=== PATIENT | female | born 1960 | race Caucasian/White ===

== ENCOUNTER → 2018-04-16 15:25 | Outpatient (CLI) | payer BC, SELFPAY ==
[2018-04-23 16:05] LABS: HPV Reflexed? NOT INDICATED
== END ==
PROVIDERS: Family Provider Family Medicine; PCP Family Medicine; Visit Provider Obstetrics & Gynecology
DX: Z12.4 Encounter for screening for malignant neoplasm of cervix (principal)
CPT/HCPCS: 88175; G0145

== ENCOUNTER 2019-03-25 00:15 | Emergency (ER) | payer BC, SELFPAY ==
[2019-01-25 10:09] VITALS: BMI 32.3
[2019-03-25 00:16] VITALS: BP 180/110; PULSE 78; RESP 18; TEMP 37.2; O2SAT 98; BMI 32.5
--- NOTE | 2019-03-25 00:35 | ED.DCSUM_ITS ---
History of Present Illness Chief Complaint: Anxiety Informant: Patient Onset: Days Current Severity: Moderate Maximum Severity: Moderate Narrative: Patient presents with anxiety and inability to sleep. Her father yesterday afternoon. She states that she had a tumultuous relationship with him. She states he had a horrible . She was able to sleep for a few hours but woke up replaying the patient struggling during his and now is having difficulty dealing with this. Patient does have a history of anxiety and states several years ago should be on Ativan for just a short time period. She does feel that she likely counseling to help her get through this. - Past Medical History (1) Hypertension Status: Chronic (2) Hypothyroid Status: Chronic Past Medical History - Allergies and Home Meds Allergies/Adverse Reactions: Allergies No Known Allergies Allergy (Verified 03/25/19 00:16) Primary Care Physician: Kana Hernandez MD [Primary Care Provider] - Prior records reviewed: Yes Lives: Spouse/ Significant Other Smoking Status: Never smoker Review of Systems General: Denies: Chills, Fever Eyes: Denies: Visual changes - bilaterally ENT: Denies: Bilateral ear pain Cardiovascular: Reports: Palpitations. Denies: Chest pain Respiratory: Denies: Dyspnea, Cough Gastrointestinal: Denies: Abdominal pain, Nausea, Vomiting Genitourinary: Denies: Dysuria Musculoskeletal: Denies: Extremity Pain Neurological: Denies: Headache Psych: Reports: Anxiety Allergy: Denies: Uticaria Physical Exam Vital Signs/Narrative: Vital Signs Temp Pulse Resp BP Pulse Ox 03/25/19 00:16 98.9 F 78 18 180/110 H 98 Inital Vital Signs reviewed: Yes General: Well nourished, Well developed Head: Normocephalic ENT: Moist mucous membranes Neck: Supple Cardiovascular: Regular rate, Regular rhythm Respiratory: No distress, CTA bilaterally Abdomen: Soft, Nontender, Hypoactive bowel sounds Skin: Normal color Neurological: Alert, Oriented x3 Psychological: Tearful Diagnostic/Tx/Re-eval - Medical Decision Making Patient was initially given 1 mg of p.o. Ativan. On repeat evaluation she appeared slightly more calm, but states that she still felt very anxious and did not feel she is amenable to sleep. She is given 25 mg of p.o. Vistaril. At this time patient is feeling improved. She will be given prescriptions for both Ativan and Vistaril that she can use at home. I will get her information for behavioral health for counseling follow-up. Repeat blood pressure at time of discharge is 153/87. ED Disposition - Plan for ED Patient: Disposition: Home or Assisted Living Diagnosis: Anxiety Instructions: Anxiety Reaction Prescriptions: Lorazepam [Ativan] 1 mg PO TID PRN #10 tablet PRN Reason: Anxiety hydrOXYzine pamoate capsule [Vistaril] 25 mg PO TID PRN PRN #30 capsule PRN Reason: Anxiety Referrals: Kana Hernandez MD [Primary Care Provider] - Behavioral,Health [facility] [GROUP OF PHYSICIANS] - As soon as possible
[2019-03-25] MEDS: LORazepam 1 MG Tablet PO (00:39)
[2019-03-25] MEDS: hydrOXYzine PAM 25 MG Capsule PO (01:20)
[2019-03-25 01:54] VITALS: BP 153/87
== END 2019-03-25 01:59 | disposition home or self-care (01) ==
PROVIDERS: Emergency Provider Emergency Medicine; Family Provider Family Medicine; PCP Family Medicine
DX: F41.9 Anxiety disorder, unspecified (principal); E03.9 Hypothyroidism, unspecified; I10 Essential (primary) hypertension
CPT/HCPCS: 99283

== ENCOUNTER → 2019-04-13 07:00 | Outpatient (CLI) | payer BC, SELFPAY ==
[2019-01-25 10:09] VITALS: BMI 32.3
[2019-03-25 00:16] VITALS: BMI 32.5
--- NOTE | 2019-04-13 06:56 | BI_ITS ---
MAMMOGRAPHY - BILATERAL SCREENING REASON FOR EXAM: Female, 58 years old. Routine annual screening examination. PERTINENT HISTORY: Sister with breast cancer. Remote right stereotactic breast biopsy. TECHNIQUE: Digital bilateral breast jonel (3D mammographic acquisition) in the CC and MLO projections. 2-D mediolateral oblique (MLO) and craniocaudad (CC) views of both breasts were obtained. CAD: Full Field Digital Mammography with Computer Added Detection was performed. COMPARISON: Comparison is made with prior examination dated December 02, 2016. FINDINGS: Breast Composition: There are scattered areas of fibroglandular density. There are no dominant masses or suspicious calcifications. Stable small benign-appearing bilateral axillary lymph nodes. No other significant abnormalities are identified. There has been no significant change since the prior study. BI/SCREEN MAMM (CAD) W/JONEL BILAT IMPRESSION: Stable bilateral screening mammogram. Yearly follow-up mammogram recommended. (A) ASSESSMENT CATEGORY: BIRADS Category 2: Benign. A letter regarding these results will be sent to the patient by the facility within 30 days. Approximately 10% of breast cancers are not detected by mammography. A normal mammogram should not delay biopsy of a clinically suspicious abnormality. [id number] Electronically Signed: Moises Moncada, at 8:53 EST , Service support ,
== END ==
PROVIDERS: Family Provider Family Medicine; PCP Family Medicine; Referring Provider Family Medicine; Visit Provider Family Medicine
DX: Z12.31 Encounter for screening mammogram for malignant neoplasm of breast (principal); Z80.3 Family history of malignant neoplasm of breast
CPT/HCPCS: 77063; 77067

== ENCOUNTER → 2019-04-19 18:20 | Outpatient (CLI) | payer BC, SELFPAY ==
[2019-04-19 09:10] VITALS: BMI 32.5
[2019-04-23 13:33] LABS: HPV APTIMA, High Risk Negative (Negative)
== END ==
PROVIDERS: Family Provider Family Medicine; PCP Family Medicine; Referring Provider Nurse Practitioner Women's Health; Visit Provider Nurse Practitioner Women's Health
DX: Z12.4 Encounter for screening for malignant neoplasm of cervix (principal)
CPT/HCPCS: 87624; 88175; G0145

== ENCOUNTER → 2020-01-05 07:12 | Outpatient (CLI) | payer BC, SELFPAY ==
[2019-04-19 09:10] VITALS: BMI 32.5
[2020-01-05 08:53] LABS: Microalbumin,Random Urine 9.1 mg/L (NO RANGE EST.)
[2020-01-05 09:07] LABS: Free T3 2.3 pg/mL (2.18-3.98); T4 Free Direct 1.37 ng/dL (0.76-1.46); Thyroid Stim Hormone (TSH) 2.37 uIU/mL (0.358-3.74)
[2020-01-06 05:38] LABS: Thyroid Peroxidase AB 67 IU/mL (0-34)
== END ==
PROVIDERS: PCP Family Medicine; Referring Provider Family Medicine; Visit Provider Family Medicine
DX: E03.9 Hypothyroidism, unspecified (principal); I10 Essential (primary) hypertension
CPT/HCPCS: 36415; 82043; 82570; 84439; 84443; 84481; 86376

== ENCOUNTER 2020-02-17 09:00 | Outpatient (RCR) | payer BC, SELFPAY ==
[2019-04-19 09:10] VITALS: BMI 32.5
--- NOTE | 2020-01-20 11:44 | HP.PTEVAL_ITS ---
Patient's Visit Information BARBARA STEPHENS is a 59 year old F referred to Physical Therapy by Dr. Kana Hernandez MD with a diagnosis of POSTURAL IMBALANCE. Date of Evaluation: 01/20/20 Physical Therapist: Ron Molina, PT, Cert MDT, OCS - Visit Plan Frequency: 2x /Week Duration: 4 Weeks Plan: PT INTERVENTIONS FLEXION LUMBAR ,DLS ABD/BACK,POSTURAL EX'S,MECKENZIE CERVICAL ,ICTX ,MODALTIES NEEDED - Subjective This 59 y/o female presents to physical therapy with posture imbalance. Patient has had lumbar for about year. Patient has progessively worse right > left with standing symmtrical . Patient pain is intermittant desribed as ache . Seen DR Hernandez recommended . Patient also seen DR Munoz didnt help.Patient has had back by DR Munoz.Aggraveting factors siting, driving, extended bending,lifting. Alleviating moving out of postion.Coughing/sneezing-.Bowel/bladder -Denies parathesia/tingling.Patient pain affects QOL and job demands/housework tasks. Patient pain affects sleeping.X-RAYS showed anrteriorlothesis 11mm. SOCAIL: . 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 PALPTION:tender L-S. NEURO: denies parathesia/tingling,reflexes C5-6-7 2/3,L3-4,L4-5,L5-S1 2/3. SYMMTRIES: alighn. MMT: QUADS/HAMS 4/5,HIP FLEXION 4-/5 ,ANKLE 5/5. MMT: BUE 4/5. LUMBAR ROM: flexion WFL,extension mod loss pain,side glids min loss. CERVICAL ROM: flexion WFL,extesnion WFL,rotation /lateral flexion mod loss. MUSCLULAR ENDURANCE : ABDOMINALS POOR -UNABLE - Special Tests C/S Radiculapathy - Left Upper limb tension test: Negative C/S Radiculapathy - Right Upper limb tension test: Negative C/S Radiculapathy - Left Spurlings: Positive C/S Radiculapathy - Right Spurlings: Positive C/S Radiculapathy - Left Cervical distraction: Negative C/S Radiculapathy - Right Cervical distraction: Negative Sharp Sonia: Negative Vertebral Artery Test: Negative Alar Ligament Test: Negative Cervical Sitting: Protrusion - Mechanical Response: No effect Cervical Sitting: Protrusion - Symptoms During Testing: No effect Cervical Sitting: Protrusion - Symptoms After Testing: No effect Cervical Sitting: Retraction - Mechanical Response: No effect Cervical Sitting: Retraction - Symptoms During Testing: Produces Cervical Sitting: Retraction - Symptoms After Testing: No effect L/S Slump test left side: Negative L/S Slump test right side: Negative L/S Left Straight Leg Raise: Negative L/S Right Straight Leg Raise: Negative Lumbar Standing: Flexion - Mechanical Response: No effect Lumbar Standing: Flexion - Symptoms During Testing: No effect Lumbar Standing: Flexion - Symptoms After Testing: No effect Lumbar Standing: Extension - Mechanical Response: No effect Lumbar Standing: Extension - Symptoms During Testing: Increases Lumbar Standing: Extension - Symptoms After Testing: Worse Lumbar Lying: Flexion - Mechanical Response: No effect Lumbar Lying: Flexion - Symptoms During Testing: No effect Lumbar Lying: Flexion - Symptoms After Testing: No effect Lumbar Lying: Extension - Mechanical Response: No effect Lumbar Lying: Extension - Symptoms During Testing: Abolishes Lumbar Lying: Extension - Symptoms After Testing: Worse - Goals Goal 1:: Patient to be I with HEP. Goal Time Frame: 4-6 Weeks Goal 2:: Improve posture/body mechanics Goal Time Frame: 4-6 Weeks Goal 3:: Decrease lumbar pain with function by 50% or > to improve function and QOL. Goal Time Frame: 4-6 Weeks Goal 4:: Patient improve lumbar ROM for function of recovery Goal Time Frame: 4-6 Weeks Goal 5:: Patient to improve back owestry score by 5 points or > to improve QOL. Goal Time Frame: 4-6 Weeks Goal 6:: Patient to decrease symptoms in cervical to improve function. Goal Time Frame: 4-6 Weeks - Rehabilitation Potential Physical Therapy Diagnosis: Patient has lumbar pain worse with standing and and extended postion worse with extension does have 11 mm anteriorlothesis ,poor abdnominal strength and postural deficits thus benifit From skilled PT Rehabilitation Potential: Good - Anticipated Interventions Patient/Client Instruction: Educate patient on: Condition, Plan of Care For the Purpose of:: To decrease pain, To increase ROM, To improve muscle performance and motor function, To improve ability to perform ADL's, To increase tolerance to activity/condition/position, To improve ability of physical actions for home/community/work/leisure, To improve health of tissue, To decrease soft tissue restriction, To increase flexibility/ROM, To improve health and function Therapeutic Exercise to Include: Strength training, Body mechanics, Postural training, Flexibilty training, Active ROM, Dynamic Lumbar Stabilization For the Purpose of:: To decrease pain, To increase ROM, To improve muscle performance and motor function, To improve ability to perform ADL's, To increase tolerance to activity/condition/position, To improve health of tissue, To decrease soft tissue restriction, To increase flexibility/ROM, To reduce risk of recurrence, To improve ability to perform tasks related to life management TENS: Yes IF ES: Yes Cryotherapy (ice pack, ice massage): Yes Thermo therapy (hot pack): Yes Ultrasound (thermal/non thermal): Yes Intermittent cervical traction: Yes For the Purpose of:: To decrease pain, To increase ROM, To improve nutrient delivery to tissue, To increase oxygenation perfusion, To improve health of tissue, To decrease soft tissue restriction Thank you for the opportunity to evaluate your patient. For Medicare and Medicare HMO plans, please review the plan of care and approve it. It will need to be FAXED BACK to us at [phone] for Medicare purposes. For Medicare only, by signing this I certify the plan of care. Please let me know if there are questions or concerns regarding this plan of care. Physician Signature: Date:
--- NOTE | 2020-04-05 08:39 | HP.PTDCSUM ---
It has been my pleasure to treat BARBARA STEPHENS referred by Dr. Kana Hernandez MD, with the diagnosis of POSTURAL IMBALANCE for a total of 9 visit(s). Discharge Date: Please see the following information for a summary of their discharge status. Subjective: Doing okay.. Pain is intermittant ,. Symptoms better with general Bilateral Back Pain Intensity (Out of 10): 3 % Improvement: 50 Objective/Function: POSTURE: mild foward. GAIT: reciprocal pattern. NEURO: denies parathesia/tingling. PALAPTION: unremarkable. LUMBAR ROM: flexion min loss,extension loss pain Goal 1:: Patient to be I with HEP. Goal Progress: Goal Met Goal 2:: Improve posture/body mechanics Goal Progress: Goal Met Goal 3:: Decrease lumbar pain with function by 50% or > to improve function and QOL. Goal Progress: Progressing Goal 4:: Patient improve lumbar ROM for function of recovery Goal Progress: Progressing Goal 5:: Patient to improve back owestry score by 5 points or > to improve QOL. Goal Progress: Progressing Goal 6:: Patient to decrease symptoms in cervical to improve function. Goal Progress: Progressing Plan: RTD If there are questions or concerns regarding this patient's physical therapy, please feel free to call me at [phone]. Thank you for the referral of this patient. Sincerely, Ron Molina PT, Cert MDT, OCS
== END 2020-02-17 19:00 | disposition home or self-care (01) ==
LOC: PT 09:00
PROVIDERS: PCP Family Medicine; Referring Provider Family Medicine; Visit Provider Family Medicine
DX: R29.3 Abnormal posture (principal)
CPT/HCPCS: 97012; 97014; 97032; 97035; 97110; 97162; G0283

== ENCOUNTER → 2020-09-22 14:00 | Outpatient (CLI) | payer BC, SELFPAY ==
[2020-05-12 11:36] VITALS: BMI 35.4
--- NOTE | 2020-09-22 14:02 | EKG12_ITS ---
Test Reason : Blood Pressure : / mmHG Vent. Rate : 079 BPM Atrial Rate : 079 BPM P-R Int : 148 ms QRS Dur : 092 ms QT Int : 380 ms P-R-T Axes : 050 020 051 degrees QTc Int : 435 ms Sinus rhythm with frequent Premature ventricular complexes Otherwise normal ECG Confirmed by KOSTAS TELLO, JET ([id number]), food editor FRANCY RAINEY ([id number]) on 09/26/2020 1:40:33 PM Referred By: Jet Melchor Confirmed By:JET MELCHOR MD
[2020-09-22 15:27] LABS: Anion Gap 5 (5-15); BUN 17 mg/dL (7-18); BUN/Creat Ratio 22.8 RATIO (10-20); Calcium,Total 10.2 mg/dL (8.5-10.1); Chloride 105 mmol/L (98-107); Creatinine, Serum 0.75 mg/dL (0.55-1.02); EST Glomerular Filtration Rate 84 mL/min (>60); Est Glom Filt Rate - Afr Amer 102 mL/min (>60); Glucose 91 mg/dL (74-106); Magnesium 2.3 mg/dL (1.6-2.6); Potassium 4.1 mmol/L (3.5-5.1); Sodium Level 139 mmol/L (136-145)
== END ==
PROVIDERS: PCP Family Medicine; Referring Provider Internal Medicine Cardiovascular Disease; Visit Provider Internal Medicine Cardiovascular Disease
DX: I10 Essential (primary) hypertension (principal); R00.2 Palpitations
CPT/HCPCS: 36415; 80048; 83735; 93005; 93225; 93226

== ENCOUNTER → 2020-09-26 07:46 | Outpatient (CLI) | payer BC, SELFPAY ==
[2020-05-12 11:36] VITALS: BMI 35.4
--- NOTE | 2020-09-26 07:48 | ECHOD_ITS ---
Reason For Study: Arrhythmia Procedure This was a 2D Doppler, Color Flow transthoracic echocardiogram. Exam performed in department. Left Ventricle Normal LV size. Left ventricular systolic function is normal. The estimated ejection fraction is 65 %. Normal diastology for age. No regional wall motion abnormalities noted. Right Ventricle Normal RV size. Normal systolic function. Atria Normal left atrium. Normal right atrium. Mitral Valve Normal mitral valve. Tricuspid Valve Normal tricuspid valve. Mild tricuspid valve insufficiency. Pulmonary artery systolic pressure is 25 mmHg. Aortic Valve Normal aortic valve. Trisinus/trileaflet aortic valve. Pulmonic Valve Normal pulmonic valve. Great Vessels Normal aortic root. The pulmonary artery is normal size. Normal inferior vena cava. Pericardium/Pleural No pericardial effusion. MMode/2D Measurements & Calculations LVIDd: 4.3 cm IVSd: 1.3 cm Ao root diam: 3.7 cm LVIDs: 2.4 cm LVPWd: 1.1 cm LA dimension: 3.6 cm FS: 43.5 % LAV(MOD-bp): 66.8 ml LA A4 area: 22.4 cm2 RA A4 area: 17.4 cm2 LAV(MOD-bp) Indexed: 31.5 ml/m2 LAV(MOD-sp2): 55.7 ml LAV(MOD-sp4): 72.3 ml Time Measurements MV dec time: 0.26 sec Doppler Measurements & Calculations MV E max leroy: 73.2 cm/sec Lat Peak E' Leroy: 6.5 cm/sec Med Peak E' Leroy: 10.4 cm/sec MV A max leroy: 81.5 cm/sec E/E' lat: 11.3 E/E' med: 7.0 MV E/A: 0.90 MV V2 max: 94.5 cm/sec MV P1/2t max leroy: 76.4 cm/sec Ao V2 max: 147.0 cm/sec MV max P.6 mmHg MV P1/2t: 79.0 msec Ao max P.7 mmHg MV V2 mean: 53.7 cm/sec MV dec slope: 283.2 cm/sec2 MV mean P.4 mmHg MVA(P1/2t): 2.8 cm2 MV V2 VTI: 23.3 cm LV V1 max: 115.5 cm/sec PA V2 max: 123.3 cm/sec TR max leroy: 232.5 cm/sec LV V1 max P.4 mmHg TR max P.6 mmHg ECHO/Echo Complete Interpretation Summary Normal LV size. Left ventricular systolic function is normal. The estimated ejection fraction is 65 %. Pulmonary artery systolic pressure is 25 mmHg. Ordering Physician: Jet Melchor Referring Physician: Kana Hernandez Performed By: Adolfo Sarmiento RCS
== END ==
PROVIDERS: PCP Family Medicine; Referring Provider Internal Medicine Cardiovascular Disease; Visit Provider Internal Medicine Cardiovascular Disease
DX: I10 Essential (primary) hypertension (principal); R00.2 Palpitations
CPT/HCPCS: 93306

== ENCOUNTER 2020-11-14 03:37 | Emergency (ER) | payer BC, SELFPAY ==
[2020-10-25 08:39] VITALS: BMI 31.4
[2020-11-14 03:39] VITALS: BP 156/106; PULSE 70; RESP 16; TEMP 36.6; O2SAT 98; BMI 34.0
--- NOTE | 2020-11-14 03:46 | CT_ITS ---
STUDY: CT ABDOMEN AND PELVIS WITHOUT CONTRAST REASON FOR EXAM: Female, 60 years old. Kidney Stone RADIATION DOSAGE (If Supplied By Facility): CTDIvol = ( 16.29 ) mGy, DLP = ( 846.62 ) mGycm TECHNIQUE: Transaxial images were obtained from the dome of the diaphragm to the symphysis pubis without oral contrast, and without intravenous contrast. Sagittal and coronal images were reconstructed. Individualized dose optimization techniques were used for this CT. COMPARISON: None. FINDINGS: The visualized lung bases are unremarkable. The visualized portions of the heart are within normal limits. Normal liver. Normal gallbladder and extrahepatic biliary system. Normal spleen. Normal pancreas. Normal bilateral adrenal glands. Mild right hydronephrosis and hydroureter. Stone in the distal right ureter at the right UVJ measuring 3.2 mm. Normal left kidney. Normal visualized stomach. Normal small intestine. Normal colon. The appendix is visualized and appears normal. Normal abdominal aorta. Normal inferior vena cava. Normal retroperitoneum. Normal urinary bladder. Normal visualized uterus. Normal abdominal wall. Normal osseous structures. CT/Abdomen/Pelvis without Cont IMPRESSION: Right hydronephrosis and hydroureter with stone at the right UVJ. Electronically Signed: Jg Larson DO at 4:53 EDT Tel , Service support ,
--- NOTE | 2020-11-14 03:47 | EX.ED.DYSGE1 ---
HPI History of Present Illness Chief Complaint: Abd Pain Informant: patient Onset/Context/Timing Onset: Yesterday Timing: Waxes and wanes Current Severity: Moderate Maximum Severity: Severe Narrative Narrative: Patient presents with right flank pain that woke her from sleep around 1 AM. Yesterday afternoon patient noted brown discoloration to her urine. At that time she had no significant flank pain or dysuria. She did note an aching sensation around her bladder. She was seen by her PCP late last evening and was noted to have blood in her urine. She woke around 1 AM with pain. [facility] Medical History Degenerative disc disease, cervical Essential (primary) hypertension Generalized anxiety disorder Hypothyroidism Methyltetrahydrofolate reductase mutation Obesity Scoliosis of lumbar spine Segmental and somatic dysfunction of cervical region Segmental and somatic dysfunction of lumbar region Segmental and somatic dysfunction of pelvic region Segmental and somatic dysfunction of thoracic region Home Medications levothyroxine 150 mcg PO DAILY 04/08/13 [History Last Taken Unknown] lisinopril 20 mg tablet 20 mg PO DAILY 04/19/19 [History Last Taken Unknown] omega-3 fatty acids 1,000 mg capsule 1,000 mg PO DAILY 04/19/19 [History Last Taken Unknown] ascorbic acid (vitamin C) 100 mg chewable tablet 100 mg PO DAILY 10/20/20 [History Last Taken Unknown] cholecalciferol (vitamin D3) 125 mcg (5,000 unit) capsule 5,000 unit PO DAILY cap 10/20/20 [History Last Taken Unknown] coenzyme Q10 100 mg capsule 100 mg PO DAILY 10/20/20 [History Last Taken Unknown] flaxseed oil 1,000 mg capsule 1,000 mg PO DAILY 10/20/20 [History Last Taken Unknown] vitamin B complex 1 cap PO DAILY 10/20/20 [History Last Taken Unknown] metoprolol succinate 25 mg tablet,extended release 24 hr 25 mg PO BID 10/25/20 [History Last Taken Unknown] hydrocodone-acetaminophen 1 tab PO Q6H PRN 3 Days #10 tab 11/14/20 [Rx Last Taken Unknown] ketorolac 10 mg PO Q6H PRN 3 Days #12 tab 11/14/20 [Rx Last Taken Unknown] ondansetron 4 mg PO Q8H PRN #10 tab 11/14/20 [Rx Last Taken Unknown] Allergy/AdvReac Type Severity Reaction Status Date / Time amoxicillin [From Augmentin] Allergy Unknown Diarrhea Verified 11/14/20 03:43 bupropion [From Wellbutrin] Allergy Unknown headache Verified 11/14/20 03:43 clavulanic acid Allergy Unknown Diarrhea Verified 11/14/20 03:43 [From Augmentin] acetaminophen [From Midrin] AdvReac Unknown unknown Verified 11/14/20 03:43 dichloralphenazone AdvReac Unknown unknown Verified 11/14/20 03:43 [From Midrin] isometheptene [From Midrin] AdvReac Unknown unknown Verified 11/14/20 03:43 rizatriptan [From Maxalt] AdvReac Unknown unknown Verified 11/14/20 03:43 Family History Other Cancer Colon cancer Heart disease Hypertension Myocardial infarction Thyroid disorder Surgical History History of section Social History household members: spouse housing: house number of children: 2 current occupational status: employed 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 [employer] history of recent travel: No sexually active: Yes Smoking Status: Never smoker alcohol intake: current alcohol intake frequency: holidays/special occasions only substance use type: does not use well-balanced diet: daily or most days caffeine: Yes what type of physical activity do you participate in: walking and yoga frequency: 3-4 times per week seatbelt use: always do you feel safe at home: Yes ROS ROS ED Constitutional Constitutional ED: Denies chills or fever(s) Eyes Eyes: Denies change in vision ENT ENT ED: Denies sore throat Cardiovascular Cardiovascular: Denies chest pain Respiratory/Chest Respiratory/Chest: Denies cough or dyspnea Gastrointestinal Gastrointestinal: Reports abdominal pain and nausea; Denies diarrhea or vomiting Genitourinary Genitourinary ED: Reports hematuria; Denies dysuria Musculoskeletal Musculoskeletal: Reports back pain Integumentary Denies rash Neurologic Neurologic: Denies headache(s) or weakness Psychiatric Psychiatric: Denies anxiety or depression Endocrine Endocrinology: Denies polydipsia or polyuria Allergic/Immunologic Allergic/Immunologic ED: Denies urticaria EXAM Physical Exam Const Vital Signs: 11/14/20 03:39 Temperature 97.9 F Temperature Source Temporal Pulse Rate 70 Respiratory Rate 16 Blood Pressure 156/106 H Blood Pressure Mean 122 Pulse Ox 98 Oxygen Delivery Method Room Air Positive well nourished and well developed General Appearance ED: well developed HEENT Reports normocephalic and head/scalp atraumatic Eyes PERRL and EOMs intact bilaterally Neck supple Chest Wall inspection of chest normal and palpation of chest normal Resp normal respiratory effort and clear to auscultation bilaterally Cardio regular rate and regular rhythm GI non-tender Auscultation: hypoactive bowel sounds Palpation: soft Back/Spine no CVA tenderness Extremity normal to inspection Neuro oriented x3 Sensorium / Orientation: alert Motor Exam: strength 5/5 throughout Psych mental status grossly normal Skin no rashes or lesions noted MDM MDM MDM Narrative Medical decision making narrative: Patient was given Toradol, Zofran, Dilaudid, IV fluids. Lab work, urinalysis, CT flank are obtained. Lab Data Attestation: I reviewed the patient's lab results. Labs: Laboratory Results - last 24 hr 11/14/20 11/14/20 11/14/20 03:50 03:50 03:50 WBC 9.7 RBC 4.54 Hgb 13.7 Hct 41.3 MCV 91.0 MCH 30.2 MCHC 33.2 RDW Std Deviation 42.9 RDW Coeff of Evette 12.8 Plt Count 239 MPV 9.8 Immature Gran % (Auto) 0.400 Neut % (Auto) 71.0 H Lymph % (Auto) 17.8 L [place] % (Auto) 8.1 Eos % (Auto) 2.0 Baso % (Auto) 0.7 Absolute Neuts (auto) 6.9 Absolute Lymphs (auto) 1.73 Nucleated RBC % 0 Sodium 141 Potassium 3.9 Chloride 106 Carbon Dioxide 26.0 Anion Gap 9 BUN 17 Creatinine 0.90 Estim Creat Clear Calc 67.06 Est GFR (MDRD) Af Amer 82 Est GFR (MDRD) Non-Af 67 BUN/Creatinine Ratio 18.8 Glucose 143 H Calcium 9.8 Urine Color Yellow Urine Clarity Clear Urine pH 5.0 Ur Specific [place] 1.030 Urine Protein Negative Urine Glucose (UA) Normal Urine Ketones 5 H Urine Occult Blood 25 H Urine Nitrite Negative Urine Bilirubin Negative Urine Urobilinogen Normal Ur Leukocyte Esterase Negative Urine RBC 0-5 SEEN Urine WBC 0 SEEN Ur Squamous Epith Cells 0 SEEN Urine Bacteria 0 SEEN Urine Mucus 0 SEEN Radiography Diagnostic Testing: Radiology Impression Abdomen/Pelvis CT 11/14/20 03:46 IMPRESSION: Right hydronephrosis and hydroureter with stone at the right UVJ. Electronically Signed: Jg Larson DO at 4:53 EDT Tel , Service support , Treatment and Re-Evaluation Comments:: On repeat evaluation patient resting much more comfortably. Test results discussed with her and at bedside. She does have evidence of a 3.2 mm stone at the distal right ureter. Patient be treated with analgesics at home and referred to Dr. Burks for follow-up as needed. Return instructions are provided. Discharge Plan Triage Chief Complaint: Abd Pain ED Provider: Haleigh Aquino Dx/Rx/DC Orders Clinical Impression: Ureterolithiasis Instructions: ED Kidney Stone w/ Colic Prescriptions: New hydrocodone-acetaminophen 5-325 mg tablet 1 tab PO Q6H PRN (Reason: pain) 3 Days Qty: 10 RF: 0 ketorolac 10 mg tablet 10 mg PO Q6H PRN (Reason: pain) 3 Days Qty: 12 RF: 0 ondansetron 4 mg tablet,disintegrating 4 mg PO Q8H PRN (Reason: nausea and vomiting) Qty: 10 RF: 0 No Action omega-3 fatty acids 1,000 mg capsule 1,000 mg PO DAILY RF: 0 lisinopril 20 mg tablet 20 mg PO DAILY RF: 0 metoprolol succinate 25 mg tablet extended release 24 hr 25 mg PO BID RF: 0 vitamin B complex Capsule 1 cap PO DAILY RF: 0 cholecalciferol (vitamin D3) 125 mcg (5,000 unit) capsule 5,000 unit PO DAILY RF: 0 flaxseed oil 1,000 mg capsule 1,000 mg PO DAILY RF: 0 coenzyme Q10 [Co Q-10] 100 mg capsule 100 mg PO DAILY RF: 0 ascorbic acid (vitamin C) 100 mg tablet,chewable 100 mg PO DAILY RF: 0 levothyroxine 150 MCG tablet 150 mcg PO DAILY RF: 0 Primary Care Provider: Hernandez,Kana Referrals: Kana Hernandez MD [Primary Care Provider] - Carola Burks MD [STAFF PHYSICIAN] - 3-5 Days if not improving Disposition Disposition: Home, Self Care
[2020-11-14 03:55] LABS: Bacteria 0 SEEN /hpf (None Seen); Mucous, Urine 0 SEEN /hpf (<or=2+); Squamous Epithelial Cells - UA 0 SEEN /hpf (5-10); White Blood Cells 0 SEEN /hpf (0-5)
[2020-11-14 03:56] LABS: Color, Urine Yellow (Yellow); Glucose, Dipstick Normal (Normal); Ketone-Dipstick 5 mg/dl (Negative); Leukocyte Esterase-Dipstick Negative /ul (Negative); Nitrite-Dipstick Negative (Negative); Occult Blood-Urine 25 /ul (Negative); Protein-Dipstick Negative (Negative); Urine Bilirubin Dipstick Negative (Negative); Urine Clarity Clear (Clear); Urine Urobilinogen Normal (Normal)
[2020-11-14] MEDS: 0.9% Normal Saline 1,000 ML 250 ML IV (04:00)
[2020-11-14 04:02] LABS: Absolute Lymphocyte Count 1.73 X10^3/uL (0.83-4.51); Absolute Neutrophil Count 6.9 X10^3/uL (2.0-7.7); Basophil# 0.07 X10^3/uL; Basophil% 0.7 % (0-1); Eosinophil# 0.19 X10^3/uL; Hematocrit 41.3 % (37-47); Hemoglobin 13.7 g/dL (12.0-15.0); Lymphocyte # 1.73 X10^3/ul (0.83-4.51); Lymphocyte % 17.8 % (19-41); Mean Corp Hgb Conc 33.2 g/dL (32-36); Mean Corpuscular Hgb 30.2 pg (27.0-32.0); Mean Platelet Vol. 9.8 fl (6.2-12.0); Monocyte# 0.79 X10^3/uL; Monocyte% 8.1 % (0-10); NRBC Flagged by Analyzer 0 % (0-5); Platelet Count 239 K/mm3 (150-450); RBC Distribution Width CV 12.8 % (11.6-14.6); RBC Distribution Width SD 42.9 fl (35.1-43.9); Red Blood Cells-Urine 0-5 SEEN /hpf (0-5); Red Blood Count 4.54 M/mm3 (4.2-5.4); White Blood Count 9.7 K/mm3 (4.4-11.0)
[2020-11-14] MEDS: Ondansetron 4 MG/2 ML Vial IV (04:02)
[2020-11-14] MEDS: Ketorolac 30 MG/ML Syringe IV (04:03)
[2020-11-14] MEDS: HYDROmorphone 0.5 MG/0.5 ML SYRINGE IV (04:04)
[2020-11-14 04:14] LABS: Anion Gap 9 (5-15); BUN 17 mg/dL (7-18); BUN/Creat Ratio 18.8 RATIO (10-20); Calcium,Total 9.8 mg/dL (8.5-10.1); Chloride 106 mmol/L (98-107); EST Glomerular Filtration Rate 67 mL/min (>60); Est Glom Filt Rate - Afr Amer 82 mL/min (>60); Estimated Creatinine Clearance 67.06 ml/min; Glucose 143 mg/dL (74-106); Potassium 3.9 mmol/L (3.5-5.1); Sodium Level 141 mmol/L (136-145)
[2020-11-14 05:06] VITALS: BP 128/83; PULSE 74; RESP 16; O2SAT 99
== END 2020-11-14 05:07 | disposition home or self-care (01) ==
PROVIDERS: Emergency Provider Emergency Medicine; PCP Family Medicine
DX: N13.2 Hydronephrosis with renal and ureteral calculous obstruction (principal); E03.9 Hypothyroidism, unspecified; F41.1 Generalized anxiety disorder; I10 Essential (primary) hypertension; M50.30 Other cervical disc degeneration, unspecified cervical region; M99.01 Segmental and somatic dysfunction of cervical region; M99.05 Segmental and somatic dysfunction of pelvic region; Z79.899 Other long term (current) drug therapy
CPT/HCPCS: 74176; 80048; 81001; 85025; 99285; A4216; J2405

== ENCOUNTER → 2024-10-27 | Outpatient (CLI) | payer BC, SELFPAY ==
[2024-10-27 18:08] LABS: Free T3 2.3 pg/mL (2.18-3.98); T4 Total, Thyroxin 9.9 ug/dL (4.8-13.9)
== END | disposition home or self-care (01) ==
LOC: LAB 16:27
PROVIDERS: Referring Provider Internal Medicine Cardiovascular Disease; Visit Provider Internal Medicine Cardiovascular Disease
DX: I48.91 Unspecified atrial fibrillation (principal); R00.0 Tachycardia, unspecified
CPT/HCPCS: 36415; 84436; 84443; 84481

== ENCOUNTER → 2024-11-06 | Outpatient (CLI) | payer BC, SELFPAY ==
--- OUTSIDE RECORDS SUMMARY | 2024-11-06 08:38 | XMS RPT_ITS | CCD ---
Author Organization [facility] Care Team Providers Care Mandrel Cleaner Name Role Phone UNGERER, JULIEN LIBRARY CLERICAL ASSISTANT Attending Unavailable UNGERER, JULIEN LIBRARY CLERICAL ASSISTANT Consulting Unavailable UNGERER, JULIEN LIBRARY CLERICAL ASSISTANT Primary Care Unavailable UNGERER, JULIEN LIBRARY CLERICAL ASSISTANT Admitting Unavailable PROVIDER, UNKNOWN Consulting Unavailable PHYSICIAN, NONE Primary Care Unavailable DR FRANCISCO CRUZ DO Attending Unavailable Isabell Leo DO Primary Care Provider ISABELL LEO Attending Unavailable ISABELL LEO Primary Care Unavailable David TELLO, Dr. Roger Referring Provider [phone] Dr. Jet Melchor MD Attending Provider Town Doctor, Out of Primary Care Provider Ladan Melchor MD, Dr. Chaudhary Referring Provider [phone] Jet Melchor Attending Unavailable Jet Melchor Referring Unavailable Town Doctor, Out of Primary Care Unavailable Jet Melchor Attending Unavailable Jet Melchor Referring Unavailable Town Doctor, Out of Primary Care Unavailable JERRY RO Attending Unavailable JERRY RO Referring Unavailable Town Doctor, Out of Primary Care Unavailable Kana Hernandez Referring Unavailable Jet Melchor Attending Unavailable Town Doctor, Out of Primary Care Unavailable Allergies Allergy Classification Reported Allergen(s) Allergy Type Date of Onset Reaction(s) Facility (4 sources) Amoxicillin; Translations: [AMOXICILLIN] Drug Allergy 01-02-2021 Diarrhea [facility] (2 sources) Clavulanate Drug Allergy 01-02-2021 Diarrhea [facility] (1 source) Amoxicillin Drug Allergy 01-02-2021 [facility] Repository (1 source) Clavulanate Drug Allergy 01-02-2021 [facility] Repository Medications Current Medications Medication Drug Class(es) Dates Sig (Normalized) Sig (Original) ascorbic acid 100 mg chewable tablet (2 sources) Vitamin C Start: 10-20-2020 take 1 tablet by mouth once daily Ascorbic Acid (Vitamin C) 100 mg tablet,chewable Active 100 mg PO DAILY October 20, 2020 12:00am cholecalciferol 0.125 mg oral capsule (2 sources) Vitamin D Start: 10-20-2020 take 1 capsule by mouth once daily Cholecalciferol (Vitamin D3) 125 mcg (5,000 unit) capsule Active 5000 U PO DAILY October 20, 2020 12:00am levothyroxine sodium 0.1 mg oral tablet (5 sources) l-Thyroxine Start: 10-27-2024 take 1 tablet by mouth once daily in the morning Levothyroxine 100 mcg tablet Active 100 ug PO EVERY MORNING October 27, 2024 12:00am Start: 09-03-2024 End: 10-22-2024 take 1 tablet by mouth in the morning levothyroxine (Synthroid, Levoxyl) 100 mcg tablet Take 1 tablet (100 mcg) by mouth early in the morning.. 09/03/2024 10/22/2024 Discontinued (Reorder) Start: 04-08-2013 End: 10-27-2024 take 1 tablet by mouth once daily Levothyroxine 150 MCG tablet Discontinued 150 ug PO DAILY April 08, 2013 1:00am October 27, 2024 3:41pm lisinopril 10 mg oral tablet (5 sources) Angiotensin Converting Enzyme Inhibitor Start: 10-27-2024 take 1 tablet by mouth once daily Lisinopril 10 mg tablet Active 10 mg PO daily October 27, 2024 12:00am Start: 11-14-2023 take 1 tablet by jacqueline th in the morning lisinopril 10 mg tablet Take 1 tablet (10 mg) by mouth early in the morning.. 11/14/2023 Active Start: 04-19-2019 End: 10-27-2024 take 1 tablet by mouth once daily Lisinopril 20 mg tablet Discontinued 20 mg PO DAILY April 19, 2019 1:00am October 27, 2024 3:41pm LORazepam 1 mg oral tablet (5 sources) Benzodiazepine Start: 09-27-2024 LORazepam (Ati van) 1 mg tablet Take 1 tablet (1 mg) by mouth if needed. 09/27/2024 Active Start: 04-19-2019 End: 10-25-2020 take 0.5 mg by mouth three times daily as needed for anxiety Lorazepam 1 mg tablet Discontinued 0.5 mg PO THREE TIMES A DAY as needed for Anxiety April 19, 2019 9:55am October 25, 2020 9:26am Start: 03-25-2019 End: 04-19-2019 take 1 tablet by mouth three times daily as needed for anxiety Lorazepam 1 MG tablet Discontinued 1 mg PO THREE TIMES A DAY as needed for Anxiety 10 0 March 25, 2019 2:51am April 19, 2019 9:57am 24 hr metoprolol succinate 25 mg extended release oral tablet (13 sources) beta-Adrenergic [place] Start: 10-27-2024 take 2 tablets by mouth twice daily Metoprolol Succinate 25 mg tablet extended release 24 hr Active 12.5 mg PO TWICE A DAY October 27, 2024 3:41pm Start: 10-26-2024 End: 10-27-2024 take 1 tablet by mouth once daily Metoprolol Succinate 25 mg tablet extended release 24 hr Discontinued 25 mg PO daily October 26, 2024 4:04pm October 27, 2024 3:42pm Start: 09-25-2024 End: 10-22-2024 take 0.5 tablet by mouth twice daily metoprolol tartrate (Lopressor) 25 mg tablet Take 0.5 tablets (12.5 mg) by mouth 2 times a day. 09/25/2024 10/22/2024 Discontinued (Reorder) Start: 10-25-2020 End: 10-26-2024 take 1 tablet by mouth twice daily Metoprolol Succinate 25 mg tablet extended release 24 hr Discontinued 25 mg PO TWICE A DAY October 25, 2020 12:00am October 26, 2024 4:04pm Start: 10-20-2020 End: 10-25-2020 take 2 tablets by mouth twice daily Metoprolol Succinate 50 mg tablet extended release 24 hr Discontinued 25 mg PO TWICE A DAY October 20, 2020 12:00am October 25, 2020 9:24am Start: 04-19-2019 End: 10-20-2020 Metoprolol Tartrate 50 mg ta blet Discontinued 25 mg PO DAILY April 19, 2019 9:56am October 20, 2020 3:12pm Start: 04-08-2013 End: 04-19-2019 take 1 tablet by mouth once daily Metoprolol Tartrate 50 MG tablet Discontinued 50 mg PO DAILY April 08, 2013 1:00am April 19, 2019 9:57am [place]-3 Fatty Acids 1,000 mg capsule (2 sources) Start: 04-19-2019 take 1 capsule by mouth once daily [place]-3 Fatty Acids 1,000 mg capsule Active 1000 mg PO DAILY April 19, 2019 1:00am ubidecarenone 100 mg oral capsule (4 sources) Start: 10-20-2020 Coenzyme Q10 ( Co Q-10) 100 mg capsule Active 100 mg PO DAILY October 20, 2020 12:00am Start: 04-19-2019 End: 10-20-2020 Coenzyme Q10 (Ultra Coq10) 7 5 mg capsule Discontinued 75 mg PO DAILY April 19, 2019 1:00am October 20, 2020 3:14pm Vitamin B Complex capsule (2 sources) Start: 10-20-2020 Vitamin B Comp dagoberto capsule Active 1 NMA PO DAILY October 20, 2020 12:00am Completed/Discontinued Medications Medication Drug Class(es) Dates Sig (Normalized) Sig (Original) acetaminophen 325 mg / HYDROcodone bitartrate 5 mg oral tablet (2 sources) Opioid Agonist Start: 11-14-2020 End: 01-02-2021 Hydrocodone-Acetam inophen 5-325 mg tablet Discontinued 1 {tbl} PO EVERY 6 HOURS as needed for pain 10 3 0 November 14, 2020 January 02, 2021 9:48am Calculus of ureter Calculus of ureter aspirin 81 mg chewable tablet (2 sources) Platelet Aggregation Inhibitor, Nonsteroidal Anti-inflammatory Drug Start: 04-08-2013 End: 02-08-2019 take 1 tablet by mouth once daily Aspirin 81 MG tablet,chewable Discontinued 81 mg PO DAILY@0800 April 08, 2013 1:00am February 08, 2019 8:10am enalapril maleate 10 mg oral tablet (2 sources) Angiotensin Converting Enzyme Inhibitor Start: 04-08-2013 End: 04-19-2019 take 1 tablet by mouth twice daily Enalapril Maleate 10 MG tablet Discontinued 10 mg PO TWICE A DAY April 08, 2013 1:00am April 19, 2019 9:57am hydrOXYzine hydrochloride 50 mg oral tablet (4 sources) Antihistamine Start: 10-20-2020 End: 10-25-2020 take 1 tablet by mouth three times daily as needed Hydroxyzine Hcl 50 mg tablet Discontinued 50 mg PO THREE TIMES A DAY as needed October 20, 2020 12:00am October 25, 2020 9:26am Start: 03-25-2019 End: 04-19-2019 take 1 capsule by mouth three times daily as needed for anxiety Hydroxyzine Pamoate 25 MG capsule Discontinued 25 mg PO 3 TIMES DAILY NEEDED as needed for Anxiety 30 March 25, 2019 2:51am April 19, 2019 9:56am ketorolac tromethamine 10 mg oral tablet (2 sources) Nonsteroidal Anti-inflammatory Drug, Cyclooxygenase Inhibitor Start: 11-14-2020 End: 01-02-2021 take 1 tablet by mouth every six hours as needed for pain Ketorolac 10 mg tablet Discontinued 10 mg PO EVERY 6 HOURS as needed for pain 12 3 November 14, 2020 12:00am January 02, 2021 9:48am linseed oil 1000 mg oral capsule (2 sources) Start: 10-20-2020 End: 10-27-2024 take 1 capsule by mouth once daily Flaxseed Oil 1,000 mg capsule Discontinued 1000 mg PO DAILY October 20, 2020 12:00am October 27, 2024 3:42pm administer with a meal Multivitamin With Folic Acid 1 TABLET tablet (2 sources) Start: 04-08-2013 End: 10-20-2020 take 1 tablet by mouth once daily Multivitamin With Folic Acid 1 TABLET tablet Discontinued 1 {tbl} PO DAILY April 08, 2013 1:00am October 20, 2020 3:16pm ondansetron 4 mg disintegrating oral tablet (2 sources) Serotonin-3 Receptor Antagonist Start: 11-14-2020 End: 01-02-2021 take 1 tablet by mouth every eight hours as needed for nausea and vomiting Ondansetron 4 mg tablet,disintegr ating Discontinued 4 mg PO Q8H as needed for nausea and vomiting 10 November 14, 2020 12:00am January 02, 2021 9:48am PARoxetine hydrochloride 10 mg oral tablet (2 sources) Serotonin Reuptake Inhibitor Start: 04-08-2013 End: 02-08-2019 take 1 tablet by mouth every other day Paroxetine Hcl 10 MG tablet Discontinued 10 mg PO EVERY OTHER DAY April 08, 2013 1:00am February 08, 2019 8:10am Problems Active Problems Problem Classification Problem Date Documented Da te Episodic/Chronic Anxiety disorders (8 sources) Anxiety; Translations: [Anxiety disorder, unspecified] Onset: 10-21-2024 10-21-2024 Chronic Calculus of urinary tract (2 sources) Ureteric stone; Translations: [Calculus of ureter] 10-26-2024 Episodic Cardiac dysrhythmias (8 sources) Paroxysmal atrial fibrillation; Translations: [Paroxysmal atrial fibrillation] Onset: 10-21-2024 10-21-2024 Chronic Cardiac dysrhythmias (8 sources) Tachycardia, unspecified; Translations: [Palpitations] Onset: 09-25-2024 10-26-2024 Episodic Essential hypertension (8 sources) Essential (primary) hypertension; Translations: [Essential hypertension] Onset: 05-22-2024 10-21-2024 Chronic Other acquired deformities (2 sources) Scoliosis of lumbar spine; Translations: [Scoliosis, unspecified] 10-26-2024 Chronic Other bone disease and musculoskeletal deformities (8 sources) Segmental and somatic dysfunction; Translations: [Segmental and somatic dysfunction of cervical region] 09-26-2020 Episodic Other lower respiratory disease (4 sources) Snoring; Translations: [Snoring] Onset: 10-21-2024 10-21-2024 Episodic Other lower respiratory disease (2 sources) Snoring; Translations: [Snoring] Onset: 10-21-2024 Episodic Other nutritional; endocrine; and metabolic disorders (2 sources) Obesity caused by energy imbalance; Translations: [Class 1 obesity due to excess calories without serious comorbidity with body mass index (BMI) of 30.0 to 30.9 in adult] Onset: 10-21-2024 10-21-2024 Chronic Other nutritional; endocrine; and metabolic disorders (2 sources) Other obesity due to excess calories; Translations: [Other obesity due to excess calories] Onset: 10-21-2024 Chronic Other nutritional; endocrine; and metabolic disorders (2 sources) Body mass index (BMI) 30.0-30.9, adult; Translations: [Body mass index (BMI) 30.0-30.9, adult] Onset: 10-21-2024 Chronic Other nutritional; endocrine; and metabolic disorders (2 sources) Obesity; Translations: [Obesity, unspecified] 10-26-2024 Chronic Other screening for suspected conditions (not mental disorders or infectious disease) (1 source) Encounter for screening for lipoid disorders; Translations: [Encounter for screening for lipoid disorders] Onset: 05-22-2024 Episodic Residual codes; unclassified (2 sources) Hereditary disorder of endocrine system; Translations: [Genetic susceptibility to other disease] 10-26-2024 Episodic Spondylosis; intervertebral disc disorders; other back problems (2 sources) Degeneration of cervical intervertebral disc; Translations: [Other cervical disc degeneration, unspecified cervical region] 10-26-2024 Chronic Thyroid disorders (9 sources) Hypothyroidism, unspecified; Translations: [Acquired hypothyroidism] Onset: 05-22-2024 10-21-2024 Chronic Unclassified (1 source) Unknown / UNK(Unknown) Onset: 12-02-2016 Unclassified (1 source) Obesity, class 1; Translations: [Obesity, class 1] Onset: 10-21-2024 Past or Other Problems Problem Classification Problem Date Documented Da te Episodic/Chronic Unclassified (1 source) Obesity, class 1; Translations: [Obesity, class 1] Onset: 10-21-2024 Results Test Name Value Interpretation Reference Range Facility Cardiology Visit Reporton Cardiology Visit Report [facility] [address] [place] [address] OFFICE VISIT Date of Service: 10/27/24 MR#: [id number] Acct: [id number] Name: ALLYN STEPHENS SHERRI Rep #: [id number] : 1960 Provider: Dr. Jet Melchor MD Age/Sex: 64/F Location: [facility] Status: Signed HPI HPI History of Present Illness Details: Pleasant 64-year-old lady with a previous history of palpitations who presents for evaluation of atrial fibrillation. 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 This was in September 25. She subsequently went back into an episode of the above also in September. Since that episode she has been taking metoprolol 12-1/2 mg twice a day and has done well. She has had some irregularities with her thyroid medication over the last few years. She also tells me that she has had a sleep study ordered. An echocardiogram done in 2020 had demonstrated preserved ejection fraction. At this particular time she tells me that she is feeling well her physical exam is unremarkable her electrocardiogram does demonstrate sinus rhythm with a rate of 78 bpm and no acute changes. Her lipid profile is actually phenomenal with a total cholesterol of 290 HDL of 130 and LDL of 151. Her last TSH in August was 2.04. 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 Cutter Required: No Accompanied by: Self Is patient in pain?: No Allergies amoxicillin (From Augmentin) Allergy (Unknown, Verified 01/02/21 09:47) Diarrhea clavulanic acid (From Augmentin) Allergy (Unknown, Verified 01/02/21 09:47) Diarrhea Medications ???Medication ???Instructions ???Recorded ???Confirmed ???Type omega-3 fatty acids 1,000 mg 1,000 mg PO DAILY 04/19/19 5 History capsule ascorbic acid (vitamin C) 100 mg 100 mg PO DAILY 10/20/20 10/27/24 History chewable tablet cholecalciferol (vitamin D3) 125 5,000 unit PO DAILY 10/20/2010/27 History mcg (5,000 unit) capsule coenzyme Q10 100 mg capsule (Co 100 mg PO DAILY 10/20/20 10/27/24 History Q-10) vitamin B complex 1 cap PO DAILY 10/20/20 10/27/24 H istory levothyroxine 100 mcg tablet 100 mcg PO QAM 10/27/24 10/27/24 H istory lisinopril 10 mg tablet 10 mg PO QDAY 10/27/24 10/27/24 Hi story metoprolol succinate 25 mg 12.5 mg PO BID 10/27/24 10/27/24 H istory tablet,extended release 24 hr Have you fallen in the past year?: No [facility] Medical History Tachycardia Hypothyroidism Obesity Generalized anxiety disorder Methyltetrahydrofolate reductase mutation Essential (primary) hypertension Heart palpitations Scoliosis of lumbar spine Degenerative disc disease, cervical Segmental and somatic dysfunction of pelvic region Segmental and somatic dysfunction of lumbar region Segmental and somatic dysfunction of thoracic region Segmental and somatic dysfunction of cervical region Surgical History History of section Family History Other Cancer Colon cancer Heart disease Hypertension Myocardial infarction Thyroid disorder Social History household members: spouse housing: house number of children: 2 current occupational status: employed 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 [employer] history of recent travel: No sexually active: Yes Smoking Status: Never smoker alcohol intake: current alcohol intake frequency: holidays/special occasions only substance use type: does not use well-balanced diet: daily or most days caffeine: Yes what type of physical activity do you participate in: walking and yoga frequency: 3-4 times per week seatbelt use: always do you feel safe at home: Yes ROS Const Const: Negative for fatigue, weakness, headache(s), daytime sleepiness or difficulty sleeping ENT ENT: Negative for headache(s), dizziness or Nosebleed/epistaxis Cardio Chest Pain: No Palpitations: Yes Edema: None Resp Respiratory: Negative for SOB with activity, SOB at rest, SOB orthopnea SOB lying down or Cough GI GI: Negative nausea, vo (more content not included)... Normal [facility] Free T3on 10-27-2024 Free T3 [Mass/Vol] 2.3 pg/mL Normal 2.18-3.98 [facility] Comment on above: Performed By: #### L [id number], [id number], L501.9310 #### [facility] [place], [address] Free [id number] By: [place] Ofo ri on 10-27-2024 Free T3 [Mass/Vol] 2.3 pg/mL 2.18-3.98 [facility] T4 Total, Thyroxinon 025 T4 [Mass/Vol] 9.9 ug/dL Normal 4.8-13.9 [facility] Comment on above: Performed By: #### L [id number], [id number], L501.9310 #### [facility] [address] [place], [place], [id number] TSH DL <= 0.005 mIU/L QnOrde red By: Jet Melchor on 10-27-2024 TSH Qn 2.960 uIU/mL 0.300-4.200 [facility] Thyroid Stim Hormone (TSH)on 10-27-2024 TSH 2.960 uIU/mL Normal 0.300-4.200 [facility] Comment on above: Performed By: #### L [id number], [id number], L501.9310 #### [facility] [address] [place], [place], [id number] ThyroxineOrdered By: [place] Cara viverosi on 10-27-2024 T4 [Mass/Vol] 9.9 ug/dL 4.8-13.9 [facility] .Auto Diffon 09-25-2024 Basophil, Absolute 0.1 10 3/mcL Normal 0.0-0.3 [facility] Comment on above: Performed By: #### A KAMRON, TROPHS, GFR, BMP, MDW, MG, CBC, ADIFF, PBNP #### [address] [place], [place] [address] Basophils/100 WBC (Bld) 0.8 % Normal 0.0-2.5 [facility] Comment on above: Performed By: #### A KAMRON, TROPHS, GFR, BMP, MDW, MG, CBC, ADIFF, PBNP #### [address] [place], [place] [address] Eosinophil, Absolute 0.2 10 3/mcL Normal 0.0-0.7 [facility] Comment on above: Performed By: #### A KAMRON, TROPHS, GFR, BMP, MDW, MG, CBC, ADIFF, PBNP #### [address] [address] Eosinophils/100 WBC (Bld) 2.0 % Normal 0.0-6.0 [facility] Comment on above: Performed By: #### A KAMRON, TROPHS, GFR, BMP, MDW, MG, CBC, ADIFF, PBNP #### [address] [address] Lymphocyte, Absolute 2.6 10 3/mcL Normal 0.9-4.3 [facility] Comment on above: Performed By: #### A KAMRON, TROPHS, GFR, BMP, MDW, MG, CBC, ADIFF, PBNP #### [address] [address] Lymphocytes/100 WBC (Bld) 31.0 % Normal 20.0-40.0 [facility] Comment on above: Performed By: #### A KAMRON, TROPHS, GFR, BMP, MDW, MG, CBC, ADIFF, PBNP #### [address] [address] Monocyte, Absolute 0.5 10 3/mcL Normal 0.1-1.4 [facility] Comment on above: Performed By: #### A KAMRON, TROPHS, GFR, BMP, MDW, MG, CBC, ADIFF, PBNP #### [address] [address] Monocytes/100 WBC (Bld) 5.8 % Normal 2.0-13.0 [facility] Comment on above: Performed By: #### A KAMRON, TROPHS, GFR, BMP, MDW, MG, CBC, ADIFF, PBNP #### [address] [address] Neutrophils/100 WBC (Bld) 60.4 % Normal 50.0-75.0 [facility] Comment on above: Performed By: #### A KAMORN, TROPHS, GFR, BMP, MDW, MG, CBC, ADIFF, PBNP #### [address] [address] .GFRon 09-25-2024 Estimated Glomerular Filtration Rate 86 ml/min/1.73sqm Normal [facility] Comment on above: Result Comment: Stages of Chronic Kidney Disease (CKD) Stage Description eGFR(ml/min/1.73 sq.m.) CKD 1 Normal kidney function or >=90 normal kindney function with possible kidney damage (ex. Proteinuria) CKD 2 Kidney damage with mild loss 60-89 of kidney function CKD 3a Mild to moderate loss of kidney 45-59 function CKD 3b Moderate to severe loss of 30-44 of kindey function CKD 4 Severe loss of kidney function 15-29 CKD 5 Kidney failure <15 Note: (go live 2024) the eGFR calculation was updated to the 2020 CKD-EPI creatinine equation without a race factor to calculate the eGFR results. Performed By: #### T SH #### [address] [address] .MDWon 09-25-2024 Monocyte Distribution Width 21.03 High 0.00-20.00 [facility] Comment on above: Result Comment: For adults in ED, MDW>20.0 may be associated with a higher risk of sepsis during the first 12hrs of hospital admission Performed By: #### A KAMRON, TROPHS, GFR, BMP, MDW, MG, CBC, ADIFF, PBNP #### [address] [address] .NEUABSon 09-25-2024 Neutrophil, Absolute 5.1 10 3/mcL Normal 2.3-8.1 [facility] Comment on above: Performed By: #### A KAMRON, TROPHS, GFR, BMP, MDW, MG, CBC, ADIFF, PBNP #### [address] [address] BMPon 09-25-2024 BUN/Creatinine Ratio 26 ratio Normal 7-27 [facility] Comment on above: Performed By: #### A KAMRON, TROPHS, GFR, BMP, MDW, MG, CBC, ADIFF, PBNP #### [address] [address] Calcium [Mass/Vol] 10.2 mg/dL Normal 8.4-10.2 [facility] Comment on above: Performed By: #### A KAMRON, TROPHS, GFR, BMP, MDW, MG, CBC, ADIFF, PBNP #### [address] [address] Chloride [Moles/Vol] 102 mmol/L Normal 98-107 [facility] Comment on above: Performed By: #### A KAMRON, TROPHS, GFR, BMP, MDW, MG, CBC, ADIFF, PBNP #### [address] [address] CO2 [Moles/Vol] 25 mmol/L Normal 23-31 [facility] Comment on above: Performed By: #### A KAMRON, TROPHS, GFR, BMP, MDW, MG, CBC, ADIFF, PBNP #### [address] [address] Creatinine [Mass/Vol] 0.77 mg/dL Normal 0.51-0.95 [facility] Comment on above: Performed By: #### A KAMRON, TROPHS, GFR, BMP, MDW, MG, CBC, ADIFF, PBNP #### [address] [address] Electrolyte Balance 11.0 mEq/L Normal 4.0-15.0 [facility] Comment on above: Performed By: #### A KAMRON, TROPHS, GFR, BMP, MDW, MG, CBC, ADIFF, PBNP #### [address] [address] Glucose [Mass/Vol] 128 mg/dL High 80-115 [facility] Comment on above: Performed By: #### A KAMRON, TROPHS, GFR, BMP, MDW, MG, CBC, ADIFF, PBNP #### [address] [address] Potassium [Moles/Vol] 3.6 mmol/L Normal 3.5-5.1 [facility] Comment on above: Performed By: #### A KAMRON, TROPHS, GFR, BMP, MDW, MG, CBC, ADIFF, PBNP #### [address] [address] Sodium [Moles/Vol] 138 mmol/L Normal 136-145 [facility] Comment on above: Performed By: #### A KAMRON, TROPHS, GFR, BMP, MDW, MG, CBC, ADIFF, PBNP #### [address] [address] Urea nitrogen [Mass/Vol] 20 mg/dL High 7-18 [facility] Comment on above: Performed By: #### A KAMRON, TROPHS, GFR, BMP, MDW, MG, CBC, ADIFF, PBNP #### [address] [address] CBCon 09-25-2024 Erythrocyte distribution width (RBC) [Ratio] 13.6 % Normal 11.5-15.5 [facility] Comment on above: Performed By: #### A KAMRON, TROPHS, GFR, BMP, MDW, MG, CBC, ADIFF, PBNP #### [address] [address] Hematocrit (Bld) [Volume fraction] 44.7 % Normal 34.0-46.0 [facility] Comment on above: Performed By: #### A KAMRON, TROPHS, GFR, BMP, MDW, MG, CBC, ADIFF, PBNP #### [address] [address] Hgb 14.8 G/dL Normal 12.0-16.0 [facility] Comment on above: Performed By: #### A KAMRON, TROPHS, GFR, BMP, MDW, MG, CBC, ADIFF, PBNP #### [address] [address] MCH (RBC) [Entitic mass] 30.1 pg Normal 27.0-33.0 [facility] Comment on above: Performed By: #### A KAMRON, TROPHS, GFR, BMP, MDW, MG, CBC, ADIFF, PBNP #### [address] [address] MCHC 33.0 G/dL Normal 32.0-36.0 [facility] Comment on above: Performed By: #### A KAMRON, TROPHS, GFR, BMP, MDW, MG, CBC, ADIFF, PBNP #### [address] [address] MCV (RBC) [Entitic vol] 91.1 fL Normal 80.0-99.0 [facility] Comment on above: Performed By: #### A KAMRON, TROPHS, GFR, BMP, MDW, MG, CBC, ADIFF, PBNP #### [address] [address] Platelet 267 10 3/mcL Normal 150-450 [facility] Comment on above: Performed By: #### A KAMRON, TROPHS, GFR, BMP, MDW, MG, CBC, ADIFF, PBNP #### [address] [address] Platelet mean volume (Bld) [Entitic vol] 7.4 fL Normal 6.6-10.5 [facility] Comment on above: Performed By: #### A KAMRON, TROPHS, GFR, BMP, MDW, MG, CBC, ADIFF, PBNP #### [address] [address] RBC 4.91 10 6/mcL Normal 4.10-5.30 [facility] Comment on above: Performed By: #### A KAMRON, TROPHS, GFR, BMP, MDW, MG, CBC, ADIFF, PBNP #### [address] [address] WBC 8.4 10 3/mcL Normal 4.5-10.8 [facility] Comment on above: Performed By: #### A KAMRON, TROPHS, GFR, BMP, MDW, MG, CBC, ADIFF, PBNP #### [address] [address] MGon 09-25-2024 Magnesium [Mass/Vol] 2.0 mg/dL Normal 1.8-2.4 [facility] Comment on above: Performed By: #### A KAMRON, TROPHS, GFR, BMP, MDW, MG, CBC, ADIFF, PBNP #### [address] [address] PBNPon 09-25-2024 Natriuretic peptide B (Bld) [Mass/Vol] 154 pg/mL High 0-125 [facility] Comment on above: Result Comment: NT-p roBNP results of less than 300 pg/mL effectively rules out acute congestive heart failure with 99% negative predictive value. Performed By: #### T SH #### [place] [address] TROPHSon 09-25-2024 High Sensitivity Troponin I 21 ng/L Normal 0-51 [facility] Comment on above: Result Comment: High Sensitive Troponin I Reference Ranges: Female: 0-51 ng/L Male: 0-76 ng/L Testing performed on [employer] using a homogeneous sandwich chemiluminescent immunoassay based on [employer] technology. Performed By: #### T [facility] #### [place] [id number] High Sensitivity Troponin I 9 ng/L Normal 0-51 [facility] Comment on above: Result Comment: High Sensitive Troponin I Reference Ranges: Female: 0-51 ng/L Male: 0-76 ng/L Testing performed on [employer] using a homogeneous sandwich chemiluminescent immunoassay based on [employer] technology. Performed By: #### A KAMRON, TROPHS, GFR, BMP, MDW, MG, CBC, ADIFF, PBNP #### [address] [address] TSHon 09-25-2024 TSH Qn 2.04 m[IU]/L Normal 0.36-3.74 [facility] Comment on above: Performed By: #### T SH #### [address] [address] XR CHEST 1 VIEWon 09-25-2024 XR CHEST 1 VIEW ORIGINAL EXAMINATION: ONE XRAY VIEW OF THE CHEST 09/25/2024 3:58 pm COMPARISON: None. HISTORY: ORDERING SYSTEM PROVIDED HISTORY: Reason for Exam: chest pain FINDINGS: Normal cardiomediastinal silhouette. Clear lungs, sharp costophrenic angles. No pneumothorax. Intact bones. IMPRESSION: Normal study Interpreted by: Piero Ruffin Preliminary Report By: Piero Ruffin Electronically signed By Piero Ruffin Dictated Date: 09/25/2024 4:04:33 PM Prelim Date: 09/25/2024 4:05:09 PM Sign Date: 09/25/2024 4:05:09 PM Ordering Provider: MCKAYLA CARRERA Normal [facility] CBC + DIFFon 05-22-2024 Baso # 0.03 x10EE3/UL Normal 0.00 - 0.10 [facility] Comment on above: Performed By: #### 2 [address]43 #### [place] [id number] Basophils/100 WBC (Bld) 0.4 % Normal 0.0 - 2.0 [facility] Comment on above: Performed By: #### 2 60053 #### [place] [address] CBC + DIFF Normal [facility] Comment on above: Result Comment: CBC- COMPLETE BLOOD COUNT Performed By: #### 2 09266 #### [facility],[address] [place] [address] EO # 0.13 x10EE3/UL Normal 0.00 - 0.50 [facility] Comment on above: Performed By: #### 2 [address]013 #### [address] [address] Eosinophils/100 WBC (Bld) 2.0 % Normal 0.0 - 7.0 [facility] Comment on above: Performed By: #### 2 32092 #### [place] [address] Erythrocyte distribution width (RBC) [Ratio] 13.9 % Normal 12.0 - 15.6 [facility] Comment on above: Performed By: #### 2 36964 #### [facility],[address] [place] [address] Hematocrit (Bld) [Volume fraction] 43.8 % Normal 34.0 - 46.0 [facility] Comment on above: Performed By: #### 2 36463 #### [facility],[address] [place] [address] Hemoglobin (Bld) [Mass/Vol] 14.5 g/dL Normal 12.0 - 16.0 [facility] Comment on above: Performed By: #### 2 93369 #### [facility],[address] [place] [address] Lymph # 1.26 x10EE3/UL Normal 0.80 - 2.80 [facility] Comment on above: Performed By: #### 2 81179 #### [facility],[address] [place] [address] Lymphocytes/100 WBC (Bld) 19.6 % Low 20.0 - 45.0 [facility] Comment on above: Performed By: #### 2 16817 #### [facility],[address] [place] [address] MANUAL DIFF N/A Normal [facility] Comment on above: Performed By: #### 2 40716 #### [facility],[address] [place], [place] [id number] MCH (RBC) [Entitic mass] 31 pg Normal 27 - 33 [facility] Comment on above: Performed By: #### 2 80552 #### [place] [id number] MCHC 33 X10 3 Normal 32 - 36 [facility] Comment on above: Performed By: #### 2 38835 #### [facility],[address],[place] [address] MCV (RBC) [Entitic vol] 93 fL Normal 80 - 99 [facility] Comment on above: Performed By: #### 2 [address]144 #### [address] [address] Kane # 0.53 x10EE3/UL Normal 0.20 - 1.00 [facility] Comment on above: Performed By: #### 2 58964 #### [address] [address] MONOS % 8.2 % Normal 0.0 - 10.0 [facility] Comment on above: Performed By: #### 2 [address]5110 #### [address] [address] Morphology Kelvin (Bld) [Interp] N/A Normal [facility] Comment on above: Performed By: #### 2 [address]3915 #### [address] [address] Neut # 4.49 x10EE3/UL Normal 1.50 - 7.10 [facility] Comment on above: Performed By: #### 2 89611 #### [address] [address] Neutrophils/100 WBC (Bld) 69.9 % Normal 46.0 - 76.0 [facility] Comment on above: Performed By: #### 2 47264 #### [address] [address] PLATELET 244 x10EE3/UL Normal 150 - 450 [facility] Comment on above: Performed By: #### 2 63194 #### [address] [address] Platelet mean volume (Bld) [Entitic vol] 7.3 fL Normal 6.6 - 10.5 [facility] Comment on above: Result Comment: AUTO MATED DIFFERENTIAL Performed By: #### 2 46690 #### [address],[place] [address] RBC 4.72 x 10EE6/UL Normal 4.10 - 5.30 [facility] Comment on above: Performed By: #### 2 92998 #### [facility],[address] [place] [address] WBC 6.4 x 10EE3/UL Normal 4.5 - 10.8 [facility] Comment on above: Performed By: #### 2 93213 #### [facility],[address] [place] [address] CMP with eGFRon 05-22-2024 AGE 63 years Normal [facility] Comment on above: Performed By: #### 2 49063 #### [facility],[address] [place] [address] Albumin [Mass/Vol] 4.1 g/dL Normal 3.4 - 5.0 [facility] Comment on above: Performed By: #### 2 17140 #### [facility],[address] [place] [address] Albumin/Globulin [Mass ratio] 1.2 {ratio} Normal 0.9 - 1.6 [facility] Comment on above: Performed By: #### 2 12748 #### [facility],[address] [place] [address] ALK PHOS 102 U/L Normal 46 - 116 [facility] Comment on above: Performed By: #### 2 03673 #### [facility],[address] [place] [address] ALT [Catalytic activity/Vol] 32 U/L Normal 16 - 63 [facility] Comment on above: Performed By: #### 2 00473 #### [facility],[address] [place] [address] Anion gap [Moles/Vol] 14 mmol/L Normal 10 - 20 [facility] Comment on above: Performed By: #### 2 45588 #### [facility],[address] [place] [address] AST [Catalytic activity/Vol] 21 U/L Normal 13 - 39 [facility] Comment on above: Performed By: #### 2 64341 #### [facility],[address] [place] [address] B/C RATIO 29 ratio Normal 0 - 30 [facility] Comment on above: Performed By: #### 2 88982 #### [facility],[address] [place] [address] Bilirubin [Mass/Vol] 0.6 mg/dL Normal 0.2 - 1.0 [facility] Comment on above: Performed By: #### 2 74477 #### [facility],[address] [place] [address] Calcium [Mass/Vol] 9.9 mg/dL Normal 8.5 - 10.1 [facility] Comment on above: Performed By: #### 2 77167 #### [facility],[address] [place] [address] Chloride [Moles/Vol] 106 mmol/L Normal 98 - 107 [facility] Comment on above: Performed By: #### 2 86564 #### [facility],[address] [place] [address] CMP with eGFR Normal [facility] Comment on above: Result Comment: COMP REHENSIVE METABOLIC PANEL Performed By: #### 2 37571 #### [facility],[address] [place] [address] CO2 [Moles/Vol] 27.8 mmol/L Normal 21.0 - 32.[address] [facility] Comment on above: Performed By: #### 2 63102 #### [facility],[address] [place] [address] Creatinine [Mass/Vol] 0.65 mg/dL Normal 0.55 - 1.02 [facility] Comment on above: Performed By: #### 2 30458 #### [facility],[address] [place] [address] GFR/1.73 sq M.predicted among non-blacks MDRD (S/P/Bld) [Vol rate/Area] mL/min/{1.73_m2} Normal 60 - 999 [facility] Comment on above: Performed By: #### 2 45645 #### [facility],[address] [place] [address] Result Comment: ACCO RDING TO THE NATIONAL KIDNEY DISEASE EDUCATION PROGRAM(NKDE), A NORMAL eGFR IS A VALUE GREATER THAN OR EQUAL TO 60 ML/MIN/1.73 SQ METERS. CHRONIC KIDNEY DISEASE: <60mL/MIN/1.73 SQ METERS KIDNEY FAILURE: <15mL/MIN/1.73 SQ METERS THIS TEST SHOULD ONLY BE USED FOR PATIENTS 18 YEARS OF AGE AND OLDER. Globulin (S) [Mass/Vol] 3.3 g/dL Normal 1.5 - 3.8 [facility] Comment on above: Performed By: #### 2 13002 #### [facility],[address] [place] [address] Glucose [Mass/Vol] 95 mg/dL Normal 74 - 106 [facility] Comment on above: Performed By: #### 2 35697 #### [facility],[address] [place] [address] Potassium [Moles/Vol] 3.6 mmol/L Normal 3.5 - 5.1 [facility] Comment on above: Performed By: #### 2 49726 #### [facility],[address] [place] [address] Protein [Mass/Vol] 7.4 g/dL Normal 6.4 - 8.2 [facility] Comment on above: Performed By: #### 2 08881 #### [facility],[address] [place] [address] Sodium [Moles/Vol] 144 mmol/L Normal 136 - 145 [facility] Comment on above: Performed By: #### 2 23045 #### [facility],[address] [place] [address] Urea nitrogen [Mass/Vol] 19 mg/dL High 7 - 18 [facility] Comment on above: Performed By: #### 2 57733 #### [facility],[address] [place] [address] LIPID PROFILEon 05-22-2024 Cholesterol [Mass/Vol] 290 mg/dL High 0 - 240 [facility] Comment on above: Performed By: #### 2 64761 #### [facility],[address] [place] [address] Cholesterol in HDL [Mass/Vol] 130 mg/dL High 40 - 60 [facility] Comment on above: Performed By: #### 2 46220 #### [facility],[address] [place] [address] Cholesterol in LDL [Mass/Vol] 151 mg/dL High 0 - 129 [facility] Comment on above: Performed By: #### 2 76064 #### [facility],[address] [place] [address] Cholesterol.total/Ch olesterol in HDL [Mass ratio] 2.2 {ratio} Normal 0.0 - 5.0 [facility] Comment on above: Performed By: #### 2 99961 #### [facility],[address] [place] [address] Lipid 1996 panel Normal [facility] Comment on above: Result Comment: LIPI D PROFILE Performed By: #### 2 28778 #### [facility],[address] [place] [address] Triglyceride [Mass/Vol] 44 mg/dL Normal 0 - 150 [facility] Comment on above: Performed By: #### 2 56279 #### [facility],[address] [place] [address] T4-FREE (FREE THYROXINE)on 0 05-22-2024 Free T4 [Mass/Vol] 1.03 ng/dL Normal 0.76 - 1.46 [facility] Comment on above: Result Comment: P otential of falsely elevated results when biotin concentrations are > 10 ng/mL. Performed By: #### 2 02375 #### [facility],[address] [place] [address] TSHon 05-22-2024 TSH Qn 6.04 m[IU]/L High 0.35 - 3.74 [facility] Comment on above: Performed By: #### 2 88975 #### [facility],[address] [place] [address] HPVon 05-14-2022 HPV Interp Normal See Interp HPVN [facility] ([place]) Comment on above: Order Comment: Order placed by AP_HPV_ORDER rule from [id number] Result Comment: High Risk HPV Typing: NEGATIVE HPV types 16, 18, 31, 33, 35, 39, 45, 51, 52, 56, 58, 59, 66 and 68 DNA were undetectable or below the pre-set threshold. The norm High-Risk HPV DNA Test is not intended for use as a screening device for Pap normal women under age 30 and is not intended to substitute for regular Pap screening. The norm High-Risk HPV DNA Test is designed to augment existing methods for the detection of cervical disease and should be used in conjunction with clinical information derived from other diagnostic and screening tests, physical examinations and full medical history in accordance with appropriate patient management procedures. NOTE: A negative result does not preclude the presence of HPV infection because results depend on adequate specimen collection, absence of inhibitors and sufficient DNA to be detected. See Interp HPVN Performed By: #### H PV #### [place] [address] HPV Source Cervix Normal [facility] ([place]) Comment on above: Order Comment: Order placed by AP_HPV_ORDER rule from [id number] Performed By: #### H PV #### [place] [id number] CNCOon 12-02-2016 CNCO HNO ID: [id number]: Mammography CoordinatorService: (none)Author Type: PhysicianType: LetterFiled: 12/03/2016 11:32 PMNote Text:December 02, 2016 PID: [id number] A. [address] [place], [place] [address]Tlsl Ms. Stephens,We are pleased to inform you that the results of your recent breastimaging exam on 12/02/2016 are normal. Early detection of cancer is veryimportant. We also understand recommendations regarding breast cancerscreening are controversial. Please discuss with your primary careprovider which strategy is best for you and whether a mammogram is rightfor you.Your imaging studies and report [facility] and are available for yourcontinuing care.Thank you for allowing us to help in meeting your health care needs.Sincerely,Dr. AshfordInterpreting RadiologistWKaiser Permanente Medical Center (Normal over 40) Normal [facility] DIG SCREEN CAD BILon Bilirubin (direct) * * *Final Report* * *DATE OF EXAM: Dec 02 2016 1:16PM WO [id number] - [facility] DIG SCREEN CAD ELIZABETH / REASON: routine * * * * Physician Interpretation * * * *RESULT: #[id number] - [facility] DIG SCREEN CAD BILBILATERAL DIGITAL SCREENING MAMMOGRAM WITH CAD: 12/02/2016HISTORY: /Screening Mammogram - patient reports NO breast symptoms /Priors available for comparison.RESULT:TECHN IQUE: The study was acquired using full field digital technology and interpreted from soft copy.Current study was also evaluated with a Computer Aided Detection (CAD).Comparison is made to exams dated: 12/16/2014 mammogram, 12/10/2012 mammogram, and 09/19/2011 mammogram - [facility].There are scattered fibroglandular elements in both breasts.No significant masses, calcifications, or other findings are seen in either breast.There has been no significant interval change.IMPRESSION: NEGATIVEThere is no mammographic evidence of malignancy.A 1 year screening mammogram is recommended. The exam was reviewed by a staff physician.Lalo Rios,bb/penrad:12/03/19 17 14:38:25Imaging Technologist: Britta Caal RT(R)(M), [facility]letter [facility]: Normal over 40Mammogram BI-RADS: 1 NegativeTranscriptionis t: PenradTranscribe Date/Time: Dec 02 2016 1:02PDictated by: KRIS PARISI MDThis examination was interpreted and the report reviewed and electronically signed by: LALO ASHFORD MD on Dec 02 2016 2:38PM EST Normal [facility] PROGRESSon 12-02-2016 PROGRESS HNO ID: [id number]: Britta Caal RtService: (none)Author Type: (none)Type: Progress NotesFiled: 12/02/2016 1:34 PMNote Text: Radiology Service Progress NotePATIENT NAME: Allyn StephensMRN: [id number] OF SERVICE: December 02, 2016TIME: 1:34 PMPATIENT IDENTITY VERIFICATION COMPLETED USING TWO (2) METHODS: Patientconfirmed name verbally and Date of .PATIENT GENDER DATA: Female. status: : NoBreastfeeding status: NO.PATIENT RELEVANT IMPLANT DATA REVIEWED: Not ApplicableRADIOLOGY DEPARTMENT: [facility] screeningPERIPHERAL IV DATA: Not applicableSIGNED BY: Britta Caal RtAugust 2016 1:34 PM Normal [facility] Vital Signs Date Time Vital Sign Value Performing Clinician Facility 10-27-2024 15:33-0400 Body height 172.[address] Kana Hernandez MD Work Phone: [facility] 10-27-2024 15:33-0400 Body mass index (BMI) [Ratio] 30.2 kg/m2 Dr. Kana Hernandez MD Work Phone: [facility] 10-27-2024 15:33-0400 Body weight 90.[address] Kana Hernandez MD Work Phone: [facility] 10-27-2024 15:33-0400 Diastolic blood pressure 72 mm[Hg] Dr. Kana Hernandez MD Work Phone: [facility] 10-27-2024 15:33-0400 Heart rate 81 /min Dr. Kana Hernandez MD Work Phone: [facility] 10-27-2024 15:33-0400 Respiratory rate 16 /min Dr. Kana Hernandez MD Work Phone: [facility] 10-27-2024 15:33-0400 Systolic blood pressure 130 mm[Hg] Dr. Kana Hernandez MD Work Phone: [facility] 10-21-2024 15:28-0400 Body height 172.7 cm Isabell Borisuk DO Work Phone: [facility] 10-21-2024 15:28-0400 Body mass index (BMI) [Ratio] 30.32 kg/m2 Isabell Borisuk DO Work Phone: [facility] 10-21-2024 15:28-0400 Body temperature 97.81 [degF] Isabell Borisuk DO Work Phone: [facility] 10-21-2024 15:28-0400 Body weight 90.45 kg Isabell Borisuk DO Work Phone: [facility] 10-21-2024 15:28-0400 Diastolic blood pressure 86 mm[Hg] Isabell Borisuk DO Work Phone: [facility] 10-21-2024 15:28-0400 Heart rate 82 /min Isabell Borisuk DO Work Phone: [facility] 10-21-2024 15:28-0400 Respiratory rate 17 /min Isabell Borisuk DO Work Phone: [facility] 10-21-2024 15:28-0400 SaO2% (BldA) [Mass fraction] 98 % Isabell Borisuk DO Work Phone: [facility] 10-21-2024 15:28-0400 Systolic blood pressure 130 mm[Hg] Isabell Borisuk DO Work Phone: [facility] Encounters Encounter Date Encounter Type Care Provider Facility Start: 11-12-2024 ambulatory JERRY RO Facility: [facility] Start: 11-06-2024 ambulatory Jet Melchor Facility:[facility] Start: 10-27-2024 End: 10-27-[address] Jet Melchor MD -[facility] Work Phone: Start: 10-27-2024 End: 10-27-[address] Kana Hernandez MD Work Phone: -[facility] Start: 10-27-2024 End: 10-27-2024 ambulatory Jet Melchor Facility:[facility] Start: 10-21-2024 End: 10-21-2024 Office outpatient new 45 minutes Isabell Leo DO Work Phone: [facility] Comment on above: Paroxysmal atrial fi brillation (Multi) (Primary Dx); Acquired hypothyroidism; Primary hypertension; Snoring; Class 1 obesity due to excess calories without serious comorbidity with body mass index (BMI) of 30.0 to 30.9 in adult; Anxiety Start: 10-21-2024 End: 10-21-2024 amb[facility] Start: 09-25-2024 End: 09-25-2024 Emergency department patient visit NONE PHYSICIAN Facility:[facility] Start: 05-22-2024 End: 05-22-2024 ambulatory [facility] Start: 12-02-2016 End: 12-02-2016 Ambulatory [facility] Plan of Treatment Date Care Activity Detail Author Start: 2035 RSV High Risk: (Elde rly (60+) or Population) (1 - 1-dose 75+ series) RSV High Risk: (Elderly (60+) or Population) (1 - 1-dose 75+ series) [facility] Start: 06-03-2025 End: 06-03-2025 Patient encounter procedure 06/03/2025 2:40 PM EST Office Visit [facility] [address] [place] [address] [place] [address] [place] [address] [facility] Start: 12-27-2024 Influenza vaccination Influenz a Vaccine (Season Ended) [facility] Start: 11-25-2024 End: 12-21-2024 Drug Screen 9 Panel, Blood with Reflex to Confirmation Drug Screen 9 Panel, Blood with Reflex to Confirmation Lab Routine Anxiety Expected: 11/25/2024 (Approximate), Expires: 12/21/2024 [facility] Work Phone: Comment on above: Expected: 11/25/2024 (Approximate), Expires: 12/21/2024 Start: 11-25-2024 End: 10-21-2025 TSH with reflex to Free T4 if abnormal TSH with reflex to Free T4 if abnormal Lab Routine Acquired hypothyroidism Expected: 11/25/2024 (Approximate), Expires: 10/21/2025 [facility] Work Phone: Comment on above: Expected: 11/25/2024 (Approximate), Expires: 10/21/2025 Start: 10-27-2024 Evaluation of diagnostic study results [facility] Start: 10-21-2024 End: 10-21-2025 In-Center Sleep Study In-Center Sleep Study Sleep Center Routine Snoring Expected: 10/21/2024 (Approximate), Expires: 10/21/2025 [facility] Service Area Work Phone: Comment on above: Expected: 10/21/2024 (Approximate), Expires: 10/21/2025 Start: 12-28-2023 COVID-19 Vaccine ( season) COVID-19 Vaccine ( season) [facility] Start: 2010 Pneumococcal vaccination Pneumococcal Vaccine (1 of 1 - PCV) [facility] Start: 2010 Zoster Vaccines (1 o f 2) Zoster Vaccines (1 of 2) [facility] Start: 2000 Screening for malign ant neoplasm of breast Mammogram [facility] Start: 1982 DTaP/Tdap/Td Vaccine s (1 - Tdap) DTaP/Tdap/Td Vaccines (1 - Tdap) [facility] Start: 1981 Screening for malign ant neoplasm of cervix [facility] Start: 1978 Diabetes mellitus screening Diabetes Screening [facility] Start: 1978 Hepatitis C screening Hepatitis C Sc reening [facility] Start: 1961 MMR Vaccines (1 of 1 - Standard series) MMR Vaccines (1 of 1 - Standard series) [facility] Start: 1960 HIV screening HIV Screening [facility] Start: 1960 Lipid panel Lipid Panel [facility] Start: 1960 Screening for malign ant neoplasm of colon [facility] Start: 1960 Thyroid stimulating hormone measurement TSH Level [facility] Start: 1960 Yearly Adult Physical Yearly Adult P hysical [facility] Payers Date Payer Category Payer Self-pay 2024 [employer] Blue [employer] Managed Care [facility] [id number] 2024 Unknown [id number] 1960 Unknown [id number] 1960 Unknown [id number] 1960 Unknown [id number] Unknown [id number] Unknown [id number] Unknown [id number] Unknown [id number] Social History Date Type Detail Facility Start: 10-21-2024 [facility] Start: 04-28-1979 End: 04-28-1987 History of tobacco use Current smoker [facility] Work Phone: Start: 04-28-1979 End: 04-28-1987 History of tobacco use Cigarette Smoker [facility] Work Phone: Start: 10-21-2024 Cigarettes smoked current (pack per day) - Reported 0.3 [facility] Work Phone: Start: 10-21-2024 Tobacco use and exposure Smokeless tobacco non-user [facility] Work Phone: Start: 10-21-2024 Alcoholic beverage intake Ex-drinker (finding) [facility] Work Phone: Start: 10-21-2024 Tobacco use panel [facility] Work Phone: Start: 10-21-2024 Alcohol Comment very rare occasion [facility] Work Phone: Start: 1960 Sex assigned at Not on file [facility] Work Phone: Start: 01-02-2021 [facility] Never smoked tobacco (finding) [facility] Start: 03-25-2019 [facility] Start: 1960 Sex Assigned At Female [facility] Goals Date Patient Goal Desired Activity /State Functional Status Date Assessment Result Facility 10-21-2024 Patient Health [facility] ionnaire 2 item (PHQ-2) [Reported] [facility] Work Phone: Evaluation note 10-27-2024 Note Date & Type Note Facility 10-27-2024 Evaluation note Diagnosis Onset Date Resolution Afib acute October 27, 2024 3:31pm [facility] Work Phone: History of Present illness Narrative 10-21-2024 Isabell Leo, DO - 10/21/2024 4:00 PM EDT Note Date & Type Note Facility 10-21-2024 History of Present illness Narrative Subjective Allyn Stephens is a 64 y.o. female [facility] She was referred by Dr. Ehsan Saunders. Annual physical is up-to-date 05/2024 She would like to decrease her levothyroxine dose if possible. The highest she was ever on was 150 mcg daily. This was then decreased to 137. This was decreased to 100. This was decreased to 88. TSH level went up to 6.04. Then she had the levothyroxine dose increased back to 100 mcg daily in May 2024. TSH on 09/19/2024 was 4.17 and then it was rechecked several days later due to a different health issue and it was 2.04 Patient had dental work done on 09/23/2024. Then several days later on 09/25/2024 she went into atrial fibrillation for the first time. 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 She did the Valsalva maneuver and it was not getting better. She went to the ER. She had a full cardiac workup and it was negative. She wore a Holter monitor for 3 days. She was given metoprolol 12.5 mg to take twice daily. She was supposed to be taking it every day but she was only taking it as needed. Then on 10/16/2024 it happened again. She went to the ER but before she was seen she went back into sinus rhythm so she left without being seen. She snores and does not know if she has sleep apnea. The tooth still aches. Yesterday she went to the batch and furnace manager. She is going back to them again in October. She takes a IAG supplement for lymphatic drainage. She bounces on a ball for lymphatic drainage. She follows with a ramp attendant. Her highest weight was 253 pounds. She has lost about 60 pounds. She did a nutrition program. She is not eating very much sugar anymore. She trying to decrease her lisinopril dose for the hypertension as well. The highest dose she was on was 10 mg twice daily. Now she is on 10 mg once daily. She checks her blood pressures regularly at home. Her averages are 120s over 60s or 70s. She has a history of anxiety. She has been on Paxil in the past and this made her feel numb. She takes Ativan 1 mg as needed. 30 tablets lasts her over 2 months. Active Problem List Comprehensive Medical/Surgical/Social/Family History Medical History[1] Surgical History[2] Social History Social History Narrative Not on file Allergies and Medications Amoxicillin Medications Ordered Prior to Encounter[3] Objective BP 130/86 Pulse 82 Temp 36.6 C (97.8 F) Resp 17 Ht 1.727 m (5' 8) Wt 90.4 kg (199 lb 6.4 oz) SpO2 98% BMI 30.32 kg/m PHYSICAL EXAM Gen: Well appearing, in NAD Eyes: EOMI HEENT: MMM. TMs normal. Throat normal. Heart: RRR, no murmurs Lungs: No increased work of breathing, CTAB, on RA GI: Soft, NTND, no guarding or rebound Extremities: WWP, cap refill <2sec, no pitting edema in LE b/l Neuro: Alert, symmetrical facies, moves all extremities equally Skin: No rashes or lesions Psych: Appropriate mood and affect Assessment/Plan Follow-up 04/2025 for welcome to Medicare physical Problem List Items Addressed This Visit Primary hypertension Overview Well-controlled on lisinopril 10 mg daily Acquired hypothyroidism Overview On levothyroxine 100 mcg daily. Will repeat TSH with reflex to free T4 if abnormal 11/25/2024 (which will be about 8 weeks from her most recent TSH lab). She is interested in seeing a functional maintenance of way superintendent to have a full thyroid workup and discuss other possible natural treatments for the thyroid. I provided her with an integrative medicine referral through . Also gave her names of clinics I found for functional medicine closer to where she lives, including [facility] in [place], and [facility] in [place]. Relevant Orders Referral to [facility] TSH with reflex to Free T4 if abnormal Follow Up In [facility] - PCP - Medicare Annual Paroxysmal atrial fibrillation (Multi) - Primary Overview She is going to see a educational assistant who she has worked with previously and trusts. Continue metoprolol tartrate 12.5 mg twice daily. Will get in-lab sleep study to evaluate for SARAH BETH which if untreated could be contributing to A-fib and hypertension since she does snore. Class 1 obesity due to excess calories without serious comorbidity with body mass index (BMI) of 30.0 to 30.9 in adult Overview Has done a nutrition program in the past. Has lost about 60 pounds from her highest weight of 253 pounds Anxiety Overview Status post failed Paxil in the past. Takes Ativan 1 mg as needed. [place] was reviewed and is appropriate. Annual controlled substance agreement was updated in the office today. Will get a blood drug screen with her upcoming thyroid blood work. Relevant Orders Drug Screen 9 Panel, Blood with Reflex to Confirmation Snoring Relevant Orders In-Center Sleep Study Isabell Leo D.O. Family Medicine Physician [facility] [id number] [address] [place] [address] This note has been transcribed using [employer] voice recognition system and there is a possibility of unintentional typing misprints. [1] Past Medical History: Diagnosis Date Anxiety Disease of thyroid gland Hypertension Varicella [2] Past Surgical History: Procedure Laterality Date SECTION, LOW TRANSVERSE 1987,1989,1991 [3] Current Outpatient Medications on File Prior to Visit Medication Sig Dispense Refill lisinopril 10 mg tablet Take 1 tablet (10 mg) by mouth early in the morning.. LORazepam (Ativan) 1 mg tablet Take 1 tablet (1 mg) by mouth if needed. [DISCONTINUED] levothyroxine (Synthroid, Levoxyl) 100 mcg tablet Take 1 tablet (100 mcg) by mouth early in the morning.. [DISCONTINUED] metoprolol tartrate (Lopressor) 25 mg tablet Take 0.5 tablets (12.5 mg) by mouth 2 times a day. No current facility-administered medications on file prior to visit. documented in this encounter [facility] Work Phone: Instructions 10-21-2024 Patient Instructions Note Date & Type Note Facility 10-21-2024 Instructions Isabell Leo DO - 10/21/2024 4:00 PM EDT in lab sleep study locations: [place], [place] - or other non- one closer to home TSH 11/25 at lab in [place] Integrative medicine referral through in the system [facility] [address] [place] [address] Email: [email or web address] Holistic medicine practitioner in [place], [place] Address: [address] [place], [place] [id number] documented in this encounter [facility] Work Phone: Evaluation note Note Date & Type Note Facility Evaluation note Diagnosis Paroxysmal atrial fibrillation (Multi)- Primary Atrial fibrillation Acquired hypothyroidism Unspecified hypothyroidism Primary hypertension Unspecified essential hypertension Snoring Other dyspnea and respiratory abnormality Class 1 obesity due to excess calories without serious comorbidity with body mass index (BMI) of 30.0 to 30.9 in adult Anxiety Anxiety state, unspecified documented in this encounter [facility] Work Phone: Evaluation note Note Date & Type Note Facility Evaluation note No assessment information availa ble [facility] Work Phone: Reason for referral (narrative) Note Date & Type Note Facility Reason for referral (narrative) No reason for referral information available [facility] Work Phone: Summary Purpose Family History No Family History Records Found Relationship Condition Age at Onset Recorded Date/T chandan Not Specified Malignant neoplasm of colon Unknown Cardiac disease Unknown Myocardial infarction Unknown Malignant neoplasm Unknown Hypertension Unknown Disorder of thyroid Unknown Advance Directives No Advanced Directives Records FoundNo Advanced Directives Records FoundNo Advanced Directives Records FoundNo Advanced Directives Records FoundNo Advanced Directives Records FoundNo Advanced Directives Records Found Chief Complaint and Reason for Visit Chief Complaint Admit Date 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) October 27, 2024 3:31p m Chief Complaint Admit Date 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) October 27, 2024 3:31p m INT LAB ORDERS October 27, 2024 4:26p m Reason for Visit Admit Date Afib October 27, 2024 3:31p m Additional Source Comments INFORMATION SOURCE (unrecogn ized section and content) DATE CREATED AUTHOR 10/22/2017 [facility] DATE CREATED AUTHOR AUTHOR'S ORGANIZ ATION 05/15/2022 [facility] DATE CREATED AUTHOR AUTHOR'S ORGANIZ ATION 05/23/2024 [facility] DATE CREATED AUTHOR AUTHOR'S ORGANIZ ATION 09/30/2024 [facility] DATE CREATED AUTHOR AUTHOR'S ORGANIZ ATION 10/26/2024 [facility] DATE CREATED AUTHOR AUTHOR'S ORGANIZ ATION 11/05/2024 [facility] Reason for Visit (unrecogniz ed section and content) Reason Comments New Patient Visit Thyroid check Care Teams (unrecognized sec tion and content) Mandrel Cleaner Relationship Specialty [place] [address] [place] [address] PCP - General Family Medicine 09/06/24 Team Status: Active Member Role/Relationship Status Dates Out of [facility] Doctor Primary Care Provider Active Team Status: Inactive Member Role/Relationship Status Dates Dr. Kana Hernandez MD Referring Provider Active St art: October 27, 2024 End: October 27, 2024 Dr. Jet Melchor MD Attending Provider Active S tart: October 27, 2024 End: October 27, 2024 Out of [facility] Doctor Primary Care Provider Active Start: October 27, 2024 End: October 27, 2024 Team Status: Inactive Member Role/Relationship Status Dates Out of [facility] Doctor Primary Care Provider Active Start: October 27, 2024 End: October 27, 2024 Dr. Jet Melchor MD Attending Provider Active S tart: October 27, 2024 End: October 27, 2024 Dr. Jet Melchor MD Referring Provider Active S tart: October 27, 2024 End: October 27, 2024 FOR RECORDS PERTAINING TO PATIENTS WHO ARE OR HAVE BEEN ENROLLED IN A CHEMICAL DEPENDENCY/SUBSTANCEABUSE PROGRAM, SOME INFORMATION MAY BE OMITTED. This clinical summary was aggregated from multiple sources. Caution should be exercised in using it in the provision of clinical care. This summary normalizes information from multiple sources, and as a consequence, information in this document may materially change the coding, format and clinical context of patient data. In addition, data may be omitted in some cases. CLINICAL DECISIONS SHOULD BE BASED ON THE PRIMARY CLINICAL RECORDS. [facility] [employer] provides no warranty or guarantee of the accuracy or completeness of information in this document.
--- NOTE | 2024-11-06 08:48 | ECHOD_ITS ---
Reason For Study Reason For Study: AFIB Procedure This was a 2D Doppler, Color Flow transthoracic echocardiogram. Exam performed in department. Left Ventricle Normal LV size. Left ventricular systolic function is normal. The left ventricular ejection fraction is 60 %. Stage 1 diastolic dysfunction. No regional wall motion abnormalities noted. Right Ventricle Normal RV size. Normal systolic function. Mitral Valve Normal mitral valve. Tricuspid Valve Normal tricuspid valve. Mild (1+) tricuspid valve insufficiency. Pulmonary artery systolic pressure is 28 mmHg. Aortic Valve Trisinus/trileaflet aortic valve. Pulmonic Valve Normal pulmonic valve. Great Vessels Normal aortic root. The ascending aorta is mild-moderately dilated. The pulmonary artery is normal size. Normal inferior vena cava. Pericardium/Pleural No pericardial effusion. MMode/2D Measurements & Calculations LVIDd: 5.1 cm IVSd: 1.0 cm Ao root diam: 4.6 cm LVIDs: 3.4 cm LVPWd: 1.0 cm FS: 32.7 % LAV(MOD-bp): 54.5 ml LVAd ap4: 30.6 cm2 LVAd ap2: 27.2 cm2 LAV(MOD-bp) Indexed: 26.7 ml/m2 LVLd ap4: 7.3 cm LVLd ap2: 8.0 cm LAV(MOD-sp2): 51.2 ml EDV(MOD-sp4): 104.3 ml EDV(MOD-sp2): 75.1 ml LAV(MOD-sp4): 54.4 ml EDV(sp4-el): 108.7 ml EDV(sp2-el): 78.0 ml LVAs ap4: 18.3 cm2 LVAs ap2: 14.5 cm2 LVLs ap4: 6.4 cm LVLs ap2: 6.3 cm ESV(MOD-sp4): 44.2 ml ESV(MOD-sp2): 27.7 ml ESV(sp4-el): 44.6 ml ESV(sp2-el): 28.4 ml EF(MOD-sp4): 57.6 % EF(MOD-sp2): 63.1 % EF(sp4-el): 59.0 % SV(MOD-sp4): 60.0 ml SV(MOD-sp2): 47.4 ml SV(sp4-el): 64.2 ml SI(MOD-sp4): 29.4 ml/m2 SI(MOD-sp2): 23.2 ml/m2 LA A4 area: 18.9 cm2 LA dimension(2D): 4.0 cm RA A4 area: 11.9 cm2 TAPSE: 2.1 cm Time Measurements MV dec time: 0.22 sec Doppler Measurements & Calculations MV E max leroy: 61.2 cm/sec Lat Peak E' Leroy: 9.6 cm/sec Med Peak E' Leroy: 6.3 cm/sec MV A max leroy: 70.3 cm/sec E/E' lat: 6.4 E/E' med: 9.6 MV E/A: 0.87 MV V2 max: 84.6 cm/sec MV P1/2t max leroy: 69.5 cm/sec Ao V2 max: 147.4 cm/sec MV max P.9 mmHg MV P1/2t: 70.3 msec Ao max P.7 mmHg MV V2 mean: 48.3 cm/sec Ao V2 mean: 103.0 cm/sec MV mean P.1 mmHg MV dec slope: 289.3 cm/sec2 Ao mean P.7 mmHg MV V2 VTI: 23.7 cm MVA(P1/2t): 3.1 cm2 Ao V2 VTI: 31.6 cm AV (velocity ratio): 0.85 LV V1 max: 116.9 cm/sec PA V2 max: 103.1 cm/sec TR max leroy: 248.8 cm/sec LV V1 max P.5 mmHg PA V2 mean: 70.4 cm/sec TR max P.8 mmHg LV V1 mean P.4 mmHg LV V1 mean: 70.0 cm/sec LV V1 VTI: 26.8 cm ECHO/Echo Complete Interpretation Summary Normal LV size. Left ventricular systolic function is normal. The left ventricular ejection fraction is 60 %. Stage 1 diastolic dysfunction. The ascending aorta is mild-moderately dilated. Trisinus/trileaflet aortic valve. Ordering Physician: Jet Melchor Referring Physician: OTD Performed By: Mimi Mitchell RDCS, RVT
== END | disposition home or self-care (01) ==
PROVIDERS: Referring Provider Internal Medicine Cardiovascular Disease; Visit Provider Internal Medicine Cardiovascular Disease
DX: I48.91 Unspecified atrial fibrillation (principal); I48.92 Unspecified atrial flutter
CPT/HCPCS: 93306

== ENCOUNTER → 2024-11-12 | Outpatient (CLI) | payer BC, SELFPAY ==
--- OUTSIDE RECORDS SUMMARY | 2024-11-12 12:45 | XMS RPT_ITS | CCD ---
Author Organization [facility] Care Team Providers Care Machine Stamper Name Role Phone UNGERER, JULIEN ADULT BASIC EDUCATION TEACHER Attending Unavailable UNGERER, JULIEN ADULT BASIC EDUCATION TEACHER Consulting Unavailable UNGERER, JULIEN ADULT BASIC EDUCATION TEACHER Primary Care Unavailable UNGERER, JULIEN ADULT BASIC EDUCATION TEACHER Admitting Unavailable PROVIDER, UNKNOWN Consulting Unavailable PHYSICIAN, NONE Primary Care Unavailable DR FRANCISCO CRUZ DO Attending Unavailable Boris DO Isabell A Primary Care Provider BORISUK ISABELL A Attending Unavailable BORIS[place] ISABELL A Primary Care Unavailable David TELLO, Dr. Roger Referring Provider [phone] Jill TELLO, Dr. Chaudhary Attending Provider Town Doctor, Out of Primary Care Provider Ladan Melchor MD, Dr. Chaudhary Referring Provider JillMook moellerril Attending Unavailable Jill, [place] Attending Unavailable Jill, [place] Referring Unavailable Town Doctor, Out of Primary Care Unavailable Jill, [place] Attending Unavailable Jill, [place] Referring Unavailable RICHCREEK Primary Care Unavailable RICHCREEK Attending Unavailable RICHCREEK Referring Unavailable [facility] Primary Care Unavailable Jill, [place] Attending Unavailable Town Doctor, Out of Primary Care Unavailable Kana Hernandez Referring Unavailable BORIS, ISABELL Primary Care Provider [phone] BORISUK ISABELL Primary Care Provider [phone] HEIDI LEOANTHA Attending Provider [phone] LEATHA ISABELL Referring Provider Allergies Allergy Classification Reported Allergen(s) Allergy Type Date of Onset Reaction(s) Facility (5 sources) Amoxicillin; Translations: [AMOXICILLIN] Drug Allergy 01-02-2021 Diarrhea [facility] (3 sources) Clavulanate Drug Allergy 01-02-2021 Diarrhea [facility] (1 source) Amoxicillin Drug Allergy 01-02-2021 [facility] Repository (1 source) Clavulanate Drug Allergy 01-02-2021 [facility] Repository Medications Current Medications Medication Drug Class(es) Dates Sig (Normalized) Sig (Original) ascorbic acid 100 mg chewable tablet (3 sources) Vitamin C Start: 10-20-2020 take 1 tablet by mouth once daily Ascorbic Acid (Vitamin C) 100 mg tablet,chewable Active 100 mg PO DAILY October 20, 2020 12:00am cholecalciferol 0.125 mg oral capsule (3 sources) Vitamin D Start: 10-20-2020 take 1 capsule by mouth once daily Cholecalciferol (Vitamin D3) 125 mcg (5,000 unit) capsule Active 5000 U PO DAILY October 20, 2020 12:00am levothyroxine sodium 0.1 mg oral tablet (7 sources) l-Thyroxine Start: 10-27-2024 take 1 tablet [...] 2024 3:41pm lisinopril 10 mg oral tablet (7 sources) Angiotensin Converting Enzyme Inhibitor Start: 10-27-2024 [...] 2024 3:41pm LORazepam 1 mg oral tablet (7 sources) Benzodiazepine Start: 09-27-2024 LORazepam (Ati van) [...] succinate 25 mg extended release oral tablet (19 sources) beta-Adrenergic Carroll Start: 10-27-2024 take 2 [...] 08, 2013 1:00am April 19, 2019 9:57am Drake-3 Fatty Acids 1,000 mg capsule (3 sources) Start: 04-19-2019 take 1 capsule by mouth once daily Drake-3 Fatty Acids 1,000 mg capsule Active 1000 mg PO DAILY April 19, 2019 1:00am ubidecarenone 100 mg oral capsule (6 sources) Start: 10-20-2020 Coenzyme Q10 ( Co Q-10) 100 mg capsule Active 100 mg PO DAILY October 20, 2020 12:00am Start: 04-19-2019 End: 10-20-2020 Coenzyme Q10 (Ultra Coq10) 7 5 mg capsule Discontinued 75 mg PO DAILY April 19, 2019 1:00am October 20, 2020 3:14pm Vitamin B Complex capsule (3 sources) Start: 10-20-2020 Vitamin B Comp dagoberto capsule Active 1 NMA PO DAILY October 20, 2020 12:00am Completed/Discontinued Medications Medication Drug Class(es) Dates Sig (Normalized) Sig (Original) acetaminophen 325 mg / HYDROcodone bitartrate 5 mg oral tablet (3 sources) Opioid Agonist Start: 11-14-2020 End: 01-02-2021 Hydrocodone-Acetam inophen 5-325 mg tablet Discontinued 1 {tbl} PO EVERY 6 HOURS as needed for pain 10 3 0 November 14, 2020 January 02, 2021 9:48am Calculus of ureter Calculus of ureter aspirin 81 mg chewable tablet (3 sources) Platelet Aggregation Inhibitor, Nonsteroidal Anti-inflammatory Drug Start: 04-08-2013 End: 02-08-2019 take 1 tablet by mouth once daily Aspirin 81 MG tablet,chewable Discontinued 81 mg PO DAILY@0800 April 08, 2013 1:00am February 08, 2019 8:10am enalapril maleate 10 mg oral tablet (3 sources) Angiotensin Converting Enzyme Inhibitor Start: 04-08-2013 End: 04-19-2019 take 1 tablet by mouth twice daily Enalapril Maleate 10 MG tablet Discontinued 10 mg PO TWICE A DAY April 08, 2013 1:00am April 19, 2019 9:57am hydrOXYzine hydrochloride 50 mg oral tablet (6 sources) Antihistamine Start: 10-20-2020 End: 10-25-2020 take [...] 9:56am ketorolac tromethamine 10 mg oral tablet (3 sources) Nonsteroidal Anti-inflammatory Drug, Cyclooxygenase Inhibitor Start: 11-14-2020 End: 01-02-2021 take 1 tablet by mouth every six hours as needed for pain Ketorolac 10 mg tablet Discontinued 10 mg PO EVERY 6 HOURS as needed for pain 12 3 0 November 14, 2020 12:00am January 02, 2021 9:48am linseed oil 1000 mg oral capsule (3 sources) Start: 10-20-2020 End: 10-27-2024 take 1 capsule by mouth once daily Flaxseed Oil 1,000 mg capsule Discontinued 1000 mg PO DAILY October 20, 2020 12:00am October 27, 2024 3:42pm administer with a meal Multivitamin With Folic Acid 1 TABLET tablet (3 sources) Start: 04-08-2013 End: 10-20-2020 take 1 tablet by mouth once daily Multivitamin With Folic Acid 1 TABLET tablet Discontinued 1 {tbl} PO DAILY April 08, 2013 1:00am October 20, 2020 3:16pm ondansetron 4 mg disintegrating oral tablet (3 sources) Serotonin-3 Receptor Antagonist Start: 11-14-2020 End: 01-02-2021 take 1 tablet by mouth every eight hours as needed for nausea and vomiting Ondansetron 4 mg tablet,disintegr ating Discontinued 4 mg PO Q8H as needed for nausea and vomiting 10 0 November 14, 2020 12:00am January 02, 2021 9:48am PARoxetine hydrochloride 10 mg oral tablet (3 sources) Serotonin Reuptake Inhibitor Start: 04-08-2013 End: 02-08-2019 take 1 tablet by mouth every other day Paroxetine Hcl 10 MG tablet Discontinued 10 mg PO EVERY OTHER DAY April 08, 2013 1:00am February 08, 2019 8:10am Problems Active Problems Problem Classification Problem Date Documented Da te Episodic/Chronic Anxiety disorders (10 sources) Anxiety; Translations: [Anxiety disorder, unspecified] Onset: 10-21-2024 10-21-2024 Chronic Aortic; peripheral; and visceral artery aneurysms (1 source) Aortic root dilatation; Translations: [Thoracic aortic ectasia] 11-10-2024 Chronic Comment on above: 4.6 cm per echo 10/27; Calculus of urinary tract (3 sources) Ureteric stone; Translations: [Calculus of ureter] 10-26-2024 Episodic Cardiac dysrhythmias (10 sources) Paroxysmal atrial fibrillation; Translations: [Paroxysmal atrial fibrillation] Onset: 10-21-2024 10-21-2024 Chronic Cardiac dysrhythmias (10 sources) Tachycardia, unspecified; Translations: [Palpitations] Onset: 09-25-2024 10-26-2024 Episodic Essential hypertension (9 sources) Essential (primary) hypertension; Translations: [Essential hypertension] Onset: 05-22-2024 10-21-2024 Chronic Other acquired deformities (3 sources) Scoliosis of lumbar spine; Translations: [Scoliosis, unspecified] 10-26-2024 Chronic Other bone disease and musculoskeletal deformities (12 sources) Segmental and somatic dysfunction; Translations: [Segmental [...] Chronic Other nutritional; endocrine; and metabolic disorders (3 sources) Obesity; Translations: [Obesity, unspecified] 10-26-2024 Chronic Other screening for suspected conditions (not mental disorders or infectious disease) (1 source) Encounter for screening for lipoid disorders; Translations: [Encounter for screening for lipoid disorders] Onset: 05-22-2024 Episodic Residual codes; unclassified (3 sources) Hereditary disorder of endocrine system; Translations: [Genetic susceptibility to other disease] 10-26-2024 Episodic Spondylosis; intervertebral disc disorders; other back problems (3 sources) Degeneration of cervical intervertebral disc; Translations: [Other cervical disc degeneration, unspecified cervical region] 10-26-2024 Chronic Thyroid disorders (10 sources) Hypothyroidism, unspecified; Translations: [Acquired hypothyroidism] Onset: 05-22-2024 10-21-2024 Chronic Unclassified (1 source) Unknown / UNK(Unknown) Onset: 12-02-2016 Unclassified (1 source) Obesity, class 1; Translations: [Obesity, class 1] Onset: 10-21-2024 Past or Other Problems Problem Classification Problem Date Documented Da te Episodic/Chronic Unclassified (1 source) Obesity, class 1; Translations: [Obesity, class 1] Onset: 10-21-2024 Results Test Name Value Interpretation Reference Range Facility Echocardiogram study reportO rdered By: Jet Melchor on 11-07-2024 Study report [facility] [address] [place] [address] Echo Complete 11/05/242048 MR#: [id number] Acct: [id number] Name: ALLYN STEPHENS Rep #:[id number] : 1960 64 From: Jet Jarvis Attending Dr: Dr. Jet Melchor MD S tatus: REG CLI Ordering Dr: Jet Melchor MD Date: 04/21 Location: [facility] Sex: F C Admitted: Reason For Study Reason For Study: AFIB Procedure This was a 2D Doppler, Color Flow transthoracic echocardiogram. Exam performed in department. Left Ventricle Normal LV size. Left ventricular systolic function is normal. The left ventricular ejection fraction is 60 %. Stage 1 diastolic dysfunction. No regional wall motion abnormalities noted. Right Ventricle Normal RV size. Normal systolic function. Mitral Valve Normal mitral valve. Tricuspid Valve Normal tricuspid valve. Mild (1+) tricuspid valve insufficiency. Pulmonary artery systolic pressure is 28 mmHg. Aortic Valve Trisinus/trileaflet aortic valve. Pulmonic Valve Normal pulmonic valve. Great Vessels Normal aortic root. The ascending aorta is mild-moderately dilated. The pulmonary artery is normal size. Normal inferior vena cava. Pericardium/Pleural No pericardial effusion. MMode/2D Measurements & Calculations LVIDd: 5.1 cm IVSd: 1.0 cm Ao root diam: 4.6 cm LVIDs: 3.4 cm LVPWd: 1.0 cm FS: 32.7 % LAV(MOD-bp): 54.5 ml LVAd ap4: 30.6 cm2 LVAd ap2: 27.2 cm2 LAV(MOD-bp) Indexed: 26.7 ml/m2 LVLd ap4: 7.3 cm LVLd ap2: 8.0 cm LAV(MOD-sp2): 51.2 ml EDV(MOD-sp4): 104.3 ml EDV(MOD-sp2): 75.1 ml LAV(MOD-sp4): 54.4 ml EDV(sp4-el): 108.7 ml EDV(sp2-el): 78.0 ml LVAs ap4: 18.3 cm2 LVAs ap2: 14.5 cm2 LVLs ap4: 6.4 cm LVLs ap2: 6.3 cm ESV(MOD-sp4): 44.2 ml ESV(MOD-sp2): 27.7 ml ESV(sp4-el): 44.6 ml ESV(sp2-el): 28.4 ml EF(MOD-sp4): 57.6 % EF(MOD-sp2): 63.1 % EF(sp4-el): 59.0 % SV(MOD-sp4): 60.0 ml SV(MOD-sp2): 47.4 ml SV(sp4-el): 64.2 ml SI(MOD-sp4): 29.4 ml/m2 SI(MOD-sp2): 23.2 ml/m2 LA A4 area: 18.9 cm2 LA dimension(2D): 4.0 cm RA A4 area: 11.9 cm2 TAPSE: 2.1 cm Time Measurements MV dec time: 0.22 sec Doppler Measurements & Calculations MV E max leroy: 61.2 cm/sec Lat Peak E' Leroy: 9.6 cm/sec Med Peak E' Leroy: 6.3 cm/sec MV A max leroy: 70.3 cm/sec E/E' lat: 6.4 E/E' med: 9.6 MV E/A: 0.87 MV V2 max: 84.6 cm/sec MV P1/2t max leroy: 69.5 cm/sec Ao V2 max: 147.4 cm/sec MV max P.9 mmHg MV P1/2t: 70.3 msec Ao max P.7 mmHg MV V2 mean: 48.3 cm/sec Ao V2 mean: 103.0 cm/sec MV mean P.1 mmHg MV dec slope: 289.3 cm/sec2 Ao mean P.7 mmHg MV V2 VTI: 23.7 cm MVA(P1/2t): 3.1 cm2 Ao V2 VTI: 31.6 cm AV (velocity ratio): 0.85 LV V1 max: 116.9 cm/sec PA V2 max: 103.1 cm/sec TR max leroy: 248.8 cm/sec LV V1 max P.5 mmHg PA V2 mean: 70.4 cm/sec TR max P.8 mmHg LV V1 mean P.4 mmHg LV V1 mean: 70.0 cm/sec LV V1 VTI: 26.8 cm ECHO/Echo Complete Interpretation Summary Normal LV size. Left ventricular systolic function is normal. The left ventricular ejection fraction is 60 %. Stage 1 diastolic dysfunction. The ascending aorta is mild-moderately dilated. Trisinus/trileaflet aortic valve. Ordering Physician: Jet Melchor Referring Physician: OTD Performed By: Mimi Mitchell, PRAVEEN, RVT 11/07/24 1641 Date _ Jet Melchor MD CC: Dr. 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 [address] Echo Complete 11/05/242048 MR#: [id number] Acct: [id number] Name: ALLYN STEPHENS SHERRI Rep #: [id number] : 1960 64 From: Jet Melchor MD Attending Dr: Dr. Jet Melchor MD Status: YVETTE HOPE Ordering Dr: Jet Melchor MD Date: 11/06/24 Location: [facility] Sex: F C Admitted: Reason For Study Reason For Study: AFIB Procedure This was a 2D Doppler, Color Flow transthoracic echocardiogram. Exam performed in department. Left Ventricle Normal LV size. Left ventricular systolic function is normal. The left ventricular ejection fraction is 60 %. Stage 1 diastolic dysfunction. No regional wall motion abnormalities noted. Right Ventricle Normal RV size. Normal systolic function. Mitral Valve Normal mitral valve. Tricuspid Valve Normal tricuspid valve. Mild (1+) tricuspid valve insufficiency. Pulmonary artery systolic pressure is 28 mmHg. Aortic Valve Trisinus/trileaflet aortic valve. Pulmonic Valve Normal pulmonic valve. Great Vessels Normal aortic root. The ascending aorta is mild-moderately dilated. The pulmonary artery is normal size. Normal inferior vena cava. Pericardium/Pleural No pericardial effusion. MMode/2D Measurements Calculations LVIDd: 5.1 cm IVSd: 1.0 cm Ao root diam: 4.6 cm LVIDs: 3.4 cm LVPWd: 1.0 cm FS: 32.7 % LAV(MOD-bp): 54.5 ml LVAd ap4: 30.6 cm2 LVAd ap2: 27.2 cm2 LAV(MOD-bp) Indexed: 26.7 ml/m2 LVLd ap4: 7.3 cm LVLd ap2: 8.0 cm LAV(MOD-sp2): 51.2 ml EDV(MOD-sp4): 104.3 ml EDV(MOD-sp2): 75.1 ml LAV(MOD-sp4): 54.4 ml EDV(sp4-el): 108.7 ml EDV(sp2-el): 78.0 ml LVAs ap4: 18.3 cm2 LVAs ap2: 14.5 cm2 LVLs ap4: 6.4 cm LVLs ap2: 6.3 cm ESV(MOD-sp4): 44.2 ml ESV(MOD-sp2): 27.7 ml ESV(sp4-el): 44.6 ml ESV(sp2-el): 28.4 ml EF(MOD-sp4): 57.6 % EF(MOD-sp2): 63.1 % EF(sp4-el): 59.0 % SV(MOD-sp4): 60.0 ml SV(MOD-sp2): 47.4 ml SV(sp4-el): 64.2 ml SI(MOD-sp4): 29.4 ml/m2 SI(MOD-sp2): 23.2 ml/m2 LA A4 area: 18.9 cm2 LA dimension(2D): 4.0 cm RA A4 area: 11.9 cm2 TAPSE: 2.1 cm Time Measurements MV dec time: 0.22 sec Doppler Measurements Calculations MV E max leroy: 61.2 cm/sec Lat Peak E' Leroy: 9.6 cm/sec Med Peak E' Leroy: 6.3 cm/sec MV A max leroy: 70.3 cm/sec E/E' lat: 6.4 E/E' med: 9.6 MV E/A: 0.87 MV V2 max: 84.6 cm/sec MV P1/2t max leroy: 69.5 cm/sec Ao V2 max: 147.4 cm/sec MV max P.9 mmHg MV P1/2t: 70.3 msec Ao max P.7 mmHg MV V2 mean: 48.3 cm/sec Ao V2 mean: 103.0 cm/sec MV mean P.1 mmHg MV dec slope: 289.3 cm/sec2 Ao mean P.7 mmHg MV V2 VTI: 23.7 cm MVA(P1/2t): 3.1 cm2 Ao V2 VTI: 31.6 cm AV (velocity ratio): 0.85 LV V1 max: 116.9 cm/sec PA V2 max: 103.1 cm/sec TR max leroy: 248.8 cm/sec LV V1 max P.5 mmHg PA V2 mean: 70.4 cm/sec TR max P.8 mmHg LV V1 mean P.4 mmHg LV V1 mean: 70.0 cm/sec LV V1 VTI: 26.8 cm ECHO/Echo Complete Interpretation Summary Normal LV size. Left ventricular systolic function is normal. The left ventricular ejection fraction is 60 %. Stage 1 diastolic dysfunction. The ascending aorta is mild-moderately dilated. Trisinus/trileaflet aortic valve. Ordering Physician: Jet Melchor Referring Physician: OTD Performed By: Mimi Mitchell, RDCS, RVT 11/07/241640 Date Jet Melchor MD CC: Dr. Jet Melchor MD; ISABELL OWENS Date Dictated: 11/05/242048 Date Transcribed: 11/07/241640 Rivet Driver: Signed Normal [facility] Cardiology Visit Reporton Cardiology Visit Report [facility] [address] [place] [address]. [address] [place] [address] OFFICE VISIT Date of Service: 10/27/24 MR#: [id number] Acct: [id number] Name: STEPHENSALLYN PINA SHERRI Rep #: [id number] : 1960 Provider: Dr. Jet Melchor MD Age/Sex: 64/F Location: [facility] Status: Signed HPI HPI History of Present Illness Details: Pleasant 64-year-old lady with a previous history of palpitations who presents for evaluation of atrial fibrillation. 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 Normal [facility] Free T3on 10-27-2024 Free T3 [Mass/Vol] 2.3 pg/mL Normal 2.18-3.98 [facility] Comment on above: Performed By: #### L 501.54998, L501.9520, L501.9310 #### [facility] Laboratory [address] [place], [address] Free [id number] By: Jet johnson on 10-27-2024 Free T3 [Mass/Vol] 2.3 pg/mL 2.18-3.98 [facility] T4 Total, Thyroxinon 025 T4 [Mass/Vol] 9.9 ug/dL Normal 4.8-13.9 [facility] Comment on above: Performed By: #### L 501.24018, L501.9520, L501.9310 #### [facility] [address] [place], [place], [id number] TSH DL <= 0.005 mIU/L QnOrde red By: Jet Melchor on 10-27-2024 TSH Qn 2.960 uIU/mL 0.300-4.200 [facility] Thyroid Stim Hormone (TSH)on 10-27-2024 TSH 2.960 uIU/mL Normal 0.300-4.200 [facility] Comment on above: Performed By: #### L 501.86669, L501.9520, L501.9310 #### [facility] [address] [place], [address] ThyroxineOrdered By: Jet nowak on 10-27-2024 T4 [Mass/Vol] 9.9 ug/dL 4.8-13.9 [facility] .Auto Diffon 09-25-2024 Basophil, Absolute 0.1 10 3/mcL Normal 0.0-0.3 [facility] Comment on above: Performed By: #### A KAMRON, TROPHS, GFR, BMP, MDW, MG, CBC, ADIFF, PBNP #### [address] [address] Basophils/100 WBC (Bld) 0.8 % Normal 0.0-2.5 [facility] Comment on above: Performed By: #### A KAMRON, TROPHS, GFR, BMP, MDW, MG, CBC, ADIFF, PBNP #### [address] [address] Eosinophil, Absolute 0.2 10 3/mcL Normal 0.0-0.7 [facility] Comment on above: Performed By: #### A KAMRON, TROPHS, GFR, BMP, MDW, MG, CBC, ADIFF, PBNP #### [address] [address] Eosinophils/100 WBC (Bld) 2.0 % Normal 0.0-6.0 [facility] Comment on above: Performed By: #### A KAMRON, TROPHS, GFR, BMP, MDW, MG, CBC, ADIFF, PBNP #### [address] [address] Lymphocyte, Absolute 2.6 10 3/mcL Normal 0.9-4.3 [facility] Comment on above: Performed By: #### A KAMRON, TROPHS, GFR, BMP, MDW, MG, CBC, ADIFF, PBNP #### [address] [address] Lymphocytes/100 WBC (Bld) 31.0 % Normal 20.0-40.0 [facility] Comment on above: Performed By: #### A KAMRON, TROPHS, GFR, BMP, MDW, MG, CBC, ADIFF, PBNP #### [address] [address] Monocyte, Absolute 0.5 10 3/mcL Normal 0.1-1.4 [facility] Comment on above: Performed By: #### A KAMRON, TROPHS, GFR, BMP, MDW, MG, CBC, ADIFF, PBNP #### [address] [address] Monocytes/100 WBC (Bld) 5.8 % Normal 2.0-13.0 [facility] Comment on above: Performed By: #### A KAMRON, TROPHS, GFR, BMP, MDW, MG, CBC, ADIFF, PBNP #### [address] [address] Neutrophils/100 WBC (Bld) 60.4 % Normal 50.0-75.0 [facility] Comment on above: Performed By: #### A KAMRON, TROPHS, GFR, BMP, MDW, MG, CBC, ADIFF, PBNP #### [address] [address] .GFRon 09-25-2024 Estimated Glomerular Filtration Rate 86 ml/min/1.73sqm Normal [facility] Comment on above: Result Comment: Stages of [...] results. Performed By: #### T SH #### [address] [address] .MDWon 09-25-2024 Monocyte Distribution Width 21.03 High 0.00-20.00 [facility] Comment on above: Result Comment: For adults in ED, MDW>20.0 may be associated with a higher risk of sepsis during the first 12hrs of hospital admission Performed By: #### A KAMRON, TROPHS, GFR, BMP, MDW, MG, CBC, ADIFF, PBNP #### [address] [address] .NEUABSon 09-25-2024 Neutrophil, Absolute 5.1 10 3/mcL Normal 2.3-8.1 [facility] Comment on above: Performed By: #### A KAMRON, TROPHS, GFR, BMP, MDW, MG, CBC, ADIFF, PBNP #### [address] [address] BMPon 09-25-2024 BUN/Creatinine Ratio 26 ratio Normal 7-27 [facility] Comment on above: Performed By: #### A KAMRON, TROPHS, GFR, BMP, MDW, MG, CBC, ADIFF, PBNP #### [address] [address] Calcium [Mass/Vol] 10.2 mg/dL Normal 8.4-10.2 [facility] Comment on above: Performed By: #### A KAMRON, TROPHS, GFR, BMP, MDW, MG, CBC, ADIFF, PBNP #### [address] [address] Chloride [Moles/Vol] 102 mmol/L Normal 98-107 [facility] Comment on above: Performed By: #### A KAMRON, TROPHS, GFR, BMP, MDW, MG, CBC, ADIFF, PBNP #### [address] [address] CO2 [Moles/Vol] 25 mmol/L Normal 23-31 [facility] Comment on above: Performed By: #### A KAMRON, TROPHS, GFR, BMP, MDW, MG, CBC, ADIFF, PBNP #### [address] [address] Creatinine [Mass/Vol] 0.77 mg/dL Normal 0.51-0.95 [facility] Comment on above: Performed By: #### A KAMRON, TROPHS, GFR, BMP, MDW, MG, CBC, ADIFF, PBNP #### [address] [address] Electrolyte Balance 11.0 mEq/L Normal 4.0-15.0 [facility] Comment on above: Performed By: #### A KAMRON, TROPHS, GFR, BMP, MDW, MG, CBC, ADIFF, PBNP #### [address] [address] Glucose [Mass/Vol] 128 mg/dL High 80-115 [facility] Comment on above: Performed By: #### A KAMRON, TROPHS, GFR, BMP, MDW, MG, CBC, ADIFF, PBNP #### [address] [address] Potassium [Moles/Vol] 3.6 mmol/L Normal 3.5-5.1 [facility] Comment on above: Performed By: #### A KAMRON, TROPHS, GFR, BMP, MDW, MG, CBC, ADIFF, PBNP #### [address] [address] Sodium [Moles/Vol] 138 mmol/L Normal 136-145 [facility] Comment on above: Performed By: #### A KAMRON, TROPHS, GFR, BMP, MDW, MG, CBC, ADIFF, PBNP #### [address] [address] Urea nitrogen [Mass/Vol] 20 mg/dL High 7-18 [facility] Comment on above: Performed By: #### A KAMRON, TROPHS, GFR, BMP, MDW, MG, CBC, ADIFF, PBNP #### [address] [address] CBCon 09-25-2024 Erythrocyte distribution width (RBC) [Ratio] 13.6 % Normal 11.5-15.5 [facility] Comment on above: Performed By: #### A KAMRON, TROPHS, GFR, BMP, MDW, MG, CBC, ADIFF, PBNP #### [address] [address] Hematocrit (Bld) [Volume fraction] 44.7 % Normal 34.0-46.0 [facility] Comment on above: Performed By: #### A KAMRON, TROPHS, GFR, BMP, MDW, MG, CBC, ADIFF, PBNP #### [address] [address] Hgb 14.8 G/dL Normal 12.0-16.0 [facility] Comment on above: Performed By: #### A KAMRON, TROPHS, GFR, BMP, MDW, MG, CBC, ADIFF, PBNP #### [address] [address] MCH (RBC) [Entitic mass] 30.1 pg Normal 27.0-33.0 [facility] Comment on above: Performed By: #### A KAMRON, TROPHS, GFR, BMP, MDW, MG, CBC, ADIFF, PBNP #### [address] [address] MCHC 33.0 G/dL Normal 32.0-36.0 [facility] Comment on above: Performed By: #### A KAMRON, TROPHS, GFR, BMP, MDW, MG, CBC, ADIFF, PBNP #### [address] [address] MCV (RBC) [Entitic vol] 91.1 fL Normal 80.0-99.0 [facility] Comment on above: Performed By: #### A KAMRON, TROPHS, GFR, BMP, MDW, MG, CBC, ADIFF, PBNP #### [address] [address] Platelet 267 10 3/mcL Normal 150-450 [facility] Comment on above: Performed By: #### A KAMRON, TROPHS, GFR, BMP, MDW, MG, CBC, ADIFF, PBNP #### [address] [address] Platelet mean volume (Bld) [Entitic vol] 7.4 fL Normal 6.6-10.5 [facility] Comment on above: Performed By: #### A KAMRON, TROPHS, GFR, BMP, MDW, MG, CBC, ADIFF, PBNP #### [address] [address] RBC 4.91 10 6/mcL Normal 4.10-5.30 [facility] Comment on above: Performed By: #### A KAMRON, TROPHS, GFR, BMP, MDW, MG, CBC, ADIFF, PBNP #### [address] [address] WBC 8.4 10 3/mcL Normal 4.5-10.8 [facility] Comment on above: Performed By: #### A KAMRON, TROPHS, GFR, BMP, MDW, MG, CBC, ADIFF, PBNP #### [address] [address] MGon 09-25-2024 Magnesium [Mass/Vol] 2.0 mg/dL Normal 1.8-2.4 [facility] Comment on above: Performed By: #### A KAMRON, TROPHS, GFR, BMP, MDW, MG, CBC, ADIFF, PBNP #### [address] [address] PBNPon 09-25-2024 Natriuretic peptide B (Bld) [Mass/Vol] 154 pg/mL High 0-125 [facility] Comment on above: Result Comment: NT-p roBNP results of less than 300 pg/mL effectively rules out acute congestive heart failure with 99% negative predictive value. Performed By: #### T #### [address] [address] TROPHSon 09-25-2024 High Sensitivity Troponin I 21 ng/L Normal 0-51 [facility] Comment on above: Result Comment: High Sensitive Troponin I Reference Ranges: Female: 0-51 ng/L Male: 0-76 ng/L Testing performed on [employer] using a homogeneous sandwich chemiluminescent immunoassay based on [employer] technology. Performed By: #### T [facility] #### [place] [address] High Sensitivity Troponin I 9 ng/L Normal 0-51 [facility] Comment on above: Result Comment: High Sensitive Troponin I Reference Ranges: Female: 0-51 ng/L Male: 0-76 ng/L Testing performed on [employer] using a homogeneous sandwich chemiluminescent immunoassay based on [employer] technology. Performed By: #### A KAMRON, TROPHS, GFR, BMP, MDW, MG, CBC, ADIFF, PBNP #### [place] [id number] TSH 09-25-2024 TSH Qn 2.04 m[IU]/L Normal 0.36-3.74 [facility] Comment on above: Performed By: #### T #### [address] [address] XR CHEST 1 VIEWon 09-25-2024 XR CHEST [...] 4:05:09 PM Ordering Provider: MCKAYLA CARRERA Normal [facility] CBC + DIFFon 05-22-2024 Baso # 0.03 x10EE3/UL Normal 0.00 - 0.10 [facility] Comment on above: Performed By: #### 2 [address]3930 #### [facility],[address] [place] [address] Basophils/100 WBC (Bld) 0.4 % Normal 0.0 - 2.0 [facility] Comment on above: Performed By: #### 2 30407 #### [facility],[address] [place] [address] CBC + DIFF Normal [facility] Comment on above: Result Comment: CBC- COMPLETE BLOOD COUNT Performed By: #### 2 75827 #### [facility],[address] [place] [address] EO # 0.13 x10EE3/UL Normal 0.00 - 0.50 [facility] Comment on above: Performed By: #### 2 96320 #### [facility],[address] [place], [place] [id number] Eosinophils/100 WBC (Bld) 2.0 % Normal 0.0 - 7.0 [facility] Comment on above: Performed By: #### 2 52604 #### [facility],[address] [place], [place] [id number] Erythrocyte distribution width (RBC) [Ratio] 13.9 % Normal 12.0 - 15.6 [facility] Comment on above: Performed By: #### 2 81056 #### [facility],[address] [place] [address] Hematocrit (Bld) [Volume fraction] 43.8 % Normal 34.0 - 46.0 [facility] Comment on above: Performed By: #### 2 89602 #### [facility],[address] [place] [address] Hemoglobin (Bld) [Mass/Vol] 14.5 g/dL Normal 12.0 - 16.0 [facility] Comment on above: Performed By: #### 2 71005 #### [facility],[address] [place] [address] Lymph # 1.26 x10EE3/UL Normal 0.80 - 2.80 [facility] Comment on above: Performed By: #### 2 83034 #### [facility],[address] [place], [place] [id number] Lymphocytes/100 WBC (Bld) 19.6 % Low 20.0 - 45.0 [facility] Comment on above: Performed By: #### 2 63987 #### [facility],[address] [place] [address] MANUAL DIFF N/A Normal [facility] Comment on above: Performed By: #### 2 32315 #### [facility],[address] [place] [address] MCH (RBC) [Entitic mass] 31 pg Normal 27 - 33 [facility] Comment on above: Performed By: #### 2 25241 #### [facility],[address] [place] [address] MCHC 33 X10 3 Normal 32 - 36 [facility] Comment on above: Performed By: #### 2 63815 #### [facility],[address] [place] [address] MCV (RBC) [Entitic vol] 93 fL Normal 80 - 99 [facility] Comment on above: Performed By: #### 2 94679 #### [facility],[address] [place] [address] Dakota # 0.53 x10EE3/UL Normal 0.20 - 1.00 [facility] Comment on above: Performed By: #### 2 67067 #### [facility],[address] [place] [address] MONOS % 8.2 % Normal 0.0 - 10.0 [facility] Comment on above: Performed By: #### 2 25875 #### [facility],[address] [place] [address] Morphology Kelvin (Bld) [Interp] N/A Normal [facility] Comment on above: Performed By: #### 2 56564 #### [facility],[address] [place] [address] Neut # 4.49 x10EE3/UL Normal 1.50 - 7.10 [facility] Comment on above: Performed By: #### 2 86810 #### [facility],[address] [place] [address] Neutrophils/100 WBC (Bld) 69.9 % Normal 46.0 - 76.0 [facility] Comment on above: Performed By: #### 2 54098 #### [facility],[address] [place] [address] PLATELET 244 x10EE3/UL Normal 150 - 450 [facility] Comment on above: Performed By: #### 2 24447 #### [facility],[address] [place] [address] Platelet mean volume (Bld) [Entitic vol] 7.3 fL Normal 6.6 - 10.5 [facility] Comment on above: Result Comment: AUTO MATED DIFFERENTIAL Performed By: #### 2 51442 #### [facility],[address] [place] [address] RBC 4.72 x 10EE6/UL Normal 4.10 - 5.30 [facility] Comment on above: Performed By: #### 2 07147 #### [facility],[address] [place] [address] WBC 6.4 x 10EE3/UL Normal 4.5 - 10.8 [facility] Comment on above: Performed By: #### 2 04940 #### [facility],[address] [place] [address] CMP with eGFRon 05-22-2024 AGE 63 years Normal [facility] Comment on above: Performed By: #### 2 79876 #### [facility],[address] [place] [address] Albumin [Mass/Vol] 4.1 g/dL Normal 3.4 - 5.0 [facility] Comment on above: Performed By: #### 2 69980 #### [facility],[address] [place] [address] Albumin/Globulin [Mass ratio] 1.2 {ratio} Normal 0.9 - 1.6 [facility] Comment on above: Performed By: #### 2 91493 #### [facility],[address] [place] [address] ALK PHOS 102 U/L Normal 46 - 116 [facility] Comment on above: Performed By: #### 2 38211 #### [facility],[address] [place] [address]85 ALT [Catalytic activity/Vol] 32 U/L Normal 16 - 63 [facility] Comment on above: Performed By: #### 2 30004 #### [facility],[address] [place] [address] Anion gap [Moles/Vol] 14 mmol/L Normal 10 - 20 [facility] Comment on above: Performed By: #### 2 04024 #### [facility],[address] [place] [address] AST [Catalytic activity/Vol] 21 U/L Normal 13 - 39 [facility] Comment on above: Performed By: #### 2 23472 #### [facility],[address] [place] [address] B/C RATIO 29 ratio Normal 0 - 30 [facility] Comment on above: Performed By: #### 2 49495 #### [facility],[address] [place] [address] Bilirubin [Mass/Vol] 0.6 mg/dL Normal 0.2 - 1.0 [facility] Comment on above: Performed By: #### 2 87018 #### [facility],[address] [place] [address] Calcium [Mass/Vol] 9.9 mg/dL Normal 8.5 - 10.1 [facility] Comment on above: Performed By: #### 2 32981 #### [facility],[address] [place] [address] Chloride [Moles/Vol] 106 mmol/L Normal 98 - 107 [facility] Comment on above: Performed By: #### 2 16216 #### [facility],[address] [place] [address] CMP with eGFR Normal [facility] Comment on above: Result Comment: COMP REHENSIVE METABOLIC PANEL Performed By: #### 2 64187 #### [facility],[address] [place] [address] CO2 [Moles/Vol] 27.8 mmol/L Normal 21.0 - 32.0 [facility] Comment on above: Performed By: #### 2 03895 #### [facility],[address] [place] [address] Creatinine [Mass/Vol] 0.65 mg/dL Normal 0.55 - 1.02 [facility] Comment on above: Performed By: #### 2 76544 #### [facility],[address] [place] [address] GFR/1.73 sq M.predicted among non-blacks MDRD (S/P/Bld) [Vol rate/Area] mL/min/{1.73_m2} Normal 60 - 999 [facility] Comment on above: Performed By: #### 2 95495 #### [facility],[address] [place] [address] Result Comment: ACCO RDING TO THE NATIONAL KIDNEY DISEASE EDUCATION PROGRAM(NKDE), A NORMAL eGFR IS A VALUE GREATER THAN OR EQUAL TO 60 ML/MIN/1.73 SQ METERS. CHRONIC KIDNEY DISEASE: <60mL/MIN/1.73 SQ METERS KIDNEY FAILURE: <15mL/MIN/1.73 SQ METERS THIS TEST SHOULD ONLY BE USED FOR PATIENTS 18 YEARS OF AGE AND OLDER. Globulin (S) [Mass/Vol] 3.3 g/dL Normal 1.5 - 3.8 [facility] Comment on above: Performed By: #### 2 08187 #### [facility],[address] [place] [address] Glucose [Mass/Vol] 95 mg/dL Normal 74 - 106 [facility] Comment on above: Performed By: #### 2 52114 #### [address] [address] Potassium [Moles/Vol] 3.6 mmol/L Normal 3.5 - 5.1 [facility] Comment on above: Performed By: #### 2 67179 #### [facility],[address] [place] [address] Protein [Mass/Vol] 7.4 g/dL Normal 6.4 - 8.2 [facility] Comment on above: Performed By: #### 2 81566 #### [facility],[address] [place] [address] Sodium [Moles/Vol] 144 mmol/L Normal 136 - 145 [facility] Comment on above: Performed By: #### 2 15977 #### [facility],[address] [place] [address] Urea nitrogen [Mass/Vol] 19 mg/dL High 7 - 18 [facility] Comment on above: Performed By: #### 2 01656 #### [facility],[address] [place] [address] LIPID PROFILEon 05-22-2024 Cholesterol [Mass/Vol] 290 mg/dL High 0 - 240 [facility] Comment on above: Performed By: #### 2 95066 #### [facility],[address] [place] [address] Cholesterol in HDL [Mass/Vol] 130 mg/dL High 40 - 60 [facility] Comment on above: Performed By: #### 2 93306 #### [facility],[address] [place] [address] Cholesterol in LDL [Mass/Vol] 151 mg/dL High 0 - 129 [facility] Comment on above: Performed By: #### 2 94823 #### [facility],[address] [place] [address] Cholesterol.total/Ch olesterol in HDL [Mass ratio] 2.2 {ratio} Normal 0.0 - 5.0 [facility] Comment on above: Performed By: #### 2 02014 #### [facility],[address] [place] [address] Lipid 1996 panel Normal [facility] Comment on above: Result Comment: LIPI D PROFILE Performed By: #### 2 67823 #### [facility],[address] [place] [address] Triglyceride [Mass/Vol] 44 mg/dL Normal 0 - 150 [facility] Comment on above: Performed By: #### 2 04468 #### [facility],[address] [place] [address] T4-FREE (FREE THYROXINE)on 0 05-22-2024 Free T4 [Mass/Vol] 1.03 ng/dL Normal 0.76 - 1.46 [facility] Comment on above: Result Comment: P otential of falsely elevated results when biotin concentrations are > 10 ng/mL. Performed By: #### 2 90243 #### [facility],[address] [place] [address] TSHon 05-22-2024 TSH Qn 6.04 m[IU]/L High 0.35 - 3.74 [facility] Comment on above: Performed By: #### 2 01800 #### [facility],[address] [place] [address] HPVon 05-14-2022 HPV Interp Normal See Interp HPVN [facility] ([place]) Comment on above: Order Comment: Order placed by AP_HPV_ORDER rule from [id number] Result Comment: High Risk HPV Typing: NEGATIVE [...] HPVN Performed By: #### H PV #### [place] [address] HPV Source Cervix Normal [facility] ([place]) Comment on above: Order Comment: Order placed by AP_HPV_ORDER rule from [id number] Performed By: #### H PV #### [place] [address] CNCOon 12-02-2016 [facility] HNO ID: [id number]: Mammography CoordinatorService: (none)Author Type: PhysicianType: LetterFiled: 12/03/2016 11:32 PMNote Text:December 02, 2016 PID: [id number] [address] [place], [place] [address]Duqj Ms. Stephens,We are pleased to inform you that the results of your recent breastimaging exam on 12/02/2016 are normal. Early detection of cancer is veryimportant. We also understand recommendations regarding breast cancerscreening are controversial. Please discuss with your primary careprovider which strategy is best for you and whether a mammogram is rightfor you.Your imaging studies and report will [facility] and are available for yourcontinuing care.Thank you for allowing us to help in meeting your health care needs.Sincerely,Dr. AshfordInterpreting RadiologistWLakewood Regional Medical Center (Normal over 40) Normal [facility] DIG SCREEN CAD BILon Bilirubin (direct) * * *Final Report* * *DATE OF EXAM: Dec 02 2016 1:16PM WO [id number] - [facility] DIG SCREEN CAD ELIZABETH / REASON: routine * * * * Physician Interpretation * * * *RESULT: #[id number] - [facility] DIG SCREEN CAD BILBILATERAL DIGITAL SCREENING MAMMOGRAM WITH CAD: 12/02/2016HISTORY: /Screening Mammogram - patient reports NO breast symptoms /Priors available for comparison.RESULT:TECHN IQUE: The study was acquired using full field digital technology and interpreted from soft copy.Current study was also evaluated with a Computer Aided Detection (CAD).Comparison is made to exams dated: 12/16/2014 mammogram, 12/10/2012 mammogram, and 09/19/2011 mammogram - [facility].There are scattered fibroglandular elements in both breasts.No significant masses, calcifications, or other findings are seen in either breast.There has been no significant interval change.IMPRESSION: NEGATIVEThere is no mammographic evidence of malignancy.A 1 year screening mammogram is recommended. The exam was reviewed by a staff physician.Lalo Martinez M.D.jr,bb/penrad:12/03/19 17 14:38:25Imaging Technologist: Britta SHEA (R)(Chas), [facility]: Normal over 40Mammogram BI-RADS: 1 NegativeTranscriptionis t: PenradTranscribe Date/Time: Dec 02 2016 1:02PDictated by: KRIS MARTINEZ MDThis examination was interpreted and the report reviewed and electronically signed by: LALO ASHFORD MD on Dec 02 2016 2:38PM EST Normal [facility] PROGRESSon 12-02-2016 PROGRESS HNO ID: [id number]: Britta Caal RtService: (none)Author Type: (none)Type: Progress NotesFiled: 12/02/2016 1:34 PMNote Text: Radiology Service Progress NotePATIENT NAME: Allny StephensMRN: [id number] OF SERVICE: December 02, 2016TIME: 1:34 PMPATIENT IDENTITY VERIFICATION COMPLETED USING TWO (2) METHODS: Patientconfirmed name verbally and Date of .PATIENT GENDER DATA: Female. status: : NoBreastfeeding status: NO.PATIENT RELEVANT IMPLANT DATA REVIEWED: Not ApplicableRADIOLOGY DEPARTMENT: Women's Health screeningPERIPHERAL IV DATA: Not applicableSIGNED BY: Britta Vegalavernyany RtAugust 2016 1:34 PM Normal [facility] Vital Signs Date Time Vital Sign Value Performing Clinician Facility 10-27-2024 15:33-0400 Body height 172.[address] Kana Hernandez MD Work Phone: [facility] 10-27-2024 15:33-0400 Body mass index (BMI) [Ratio] 30.2 kg/m2 Dr. Kana Hernandez MD Work Phone: [facility] 10-27-2024 15:33-0400 Body weight 90.[address] Kana Hernandez MD Work Phone: [facility] 10-27-2024 15:33-0400 Diastolic blood pressure 72 mm[Hg] Dr. Kana Hernandez MD Work Phone: [facility] 10-27-2024 15:33-0400 Heart rate 81 /min Dr. Kana Hernandez MD Work Phone: [facility] 10-27-2024 15:33-0400 Respiratory rate 16 /min Dr. Kana Hernandez MD Work Phone: [facility] 10-27-2024 15:33-0400 Systolic blood pressure 130 mm[Hg] Dr. Kana Hernandez MD Work Phone: [facility] 10-21-2024 15:28-0400 Body height 172.7 cm Isabell Borisuk DO Work Phone: [facility] 10-21-2024 15:28-0400 Body mass index (BMI) [Ratio] 30.32 kg/m2 Isabell Borisuk DO Work Phone: [facility] 10-21-2024 15:28-0400 Body temperature 97.81 [degF] Isabell Borisuk DO Work Phone: [facility] 10-21-2024 15:28-0400 Body weight 90.45 kg Isabell Borisuk DO Work Phone: [facility] 10-21-2024 15:28-0400 Diastolic blood pressure 86 mm[Hg] Isabell Borisuk DO Work Phone: [facility] 10-21-2024 15:28-0400 Heart rate 82 /min Isabell Borisuk DO Work Phone: [facility] 10-21-2024 15:28-0400 Respiratory rate 17 /min Isabell Borisuk DO Work Phone: [facility] 10-21-2024 15:28-0400 SaO2% (BldA) [Mass fraction] 98 % Isabell Borisuk DO Work Phone: [facility] 10-21-2024 15:28-0400 Systolic blood pressure 130 mm[Hg] Isabell Borisuk DO Work Phone: [facility] Encounters Encounter Date Encounter Type Care Provider Facility Start: 11-12-[address] Kana Hernandez MD Work Phone: -Sleep Lab Work Phone: Start: 11-12-2024 ambulatory RICHCREEK Facility:[facility] Start: 11-06-2024 End: 11-06-[address] Jet Melchor MD -Cardiovascular Services Work Phone: Start: 11-06-2024 End: 11-06-[facility] Start: 11-05-2024 ambulatory Jet Jill Facility:[facility] Start: 11-05-2024 Non-patient / Non-visit Dr. Francisco TELLO -[facility] Start: 10-27-2024 End: 10-27-[address] Jet Melchor MD -[facility] Work Phone: Start: 10-27-2024 End: 10-27-[address] Kana Hernandez MD Work Phone: -[facility] Start: 10-27-2024 End: 10-27-2024 ambulatory Jetjo Melchor Facility:[facility] Start: 10-21-2024 End: 10-21-2024 Office outpatient new 45 minutes [facility] Work Phone: [facility] Comment on above: Paroxysmal atrial fi brillation (Multi) (Primary Dx); Acquired hypothyroidism; Primary hypertension; Snoring; Class 1 obesity due to excess calories without serious comorbidity with body mass index (BMI) of 30.0 to 30.9 in adult; Anxiety Start: 10-21-2024 End: 10-21-2024 ambulatory [facility] Start: 09-25-2024 End: 09-25-2024 Emergency department patient visit NONE PHYSICIAN Facility:[facility] Start: 05-22-2024 End: 05-22-2024 ambulatory [facility] Start: 12-02-2016 End: 12-02-2016 Ambulatory [facility] Plan of Treatment Date Care Activity Detail Author Start: 2035 RSV High Risk: (Elde rly (60+) or Population) (1 - 1-dose 75+ series) RSV High Risk: (Elderly (60+) or Population) (1 - 1-dose 75+ series) [facility] Start: 06-03-2025 End: 06-03-2025 Patient encounter procedure 06/03/2025 2:40 PM EST Office Visit [facility] [address] [place] [address] [place] [address] [place], [place] [id number] [facility] Start: 12-27-2024 Influenza vaccination Influenz a Vaccine (Season Ended) [facility] Start: 11-25-2024 End: 12-21-2024 Drug Screen 9 Panel, Blood with Reflex to Confirmation Drug Screen 9 Panel, Blood with Reflex to Confirmation Lab Routine Anxiety Expected: 11/25/2024 (Approximate), Expires: 12/21/2024 [facility] Work Phone: Comment on above: Expected: 11/25/2024 (Approximate), Expires: 12/21/2024 Start: 11-25-2024 End: 10-21-2025 TSH with reflex to Free T4 if abnormal TSH with reflex to Free T4 if abnormal Lab Routine Acquired hypothyroidism Expected: 11/25/2024 (Approximate), Expires: 10/21/2025 [facility] Work Phone: Comment on above: Expected: 11/25/2024 (Approximate), Expires: 10/21/2025 Start: 10-27-2024 Evaluation of diagnostic study results [facility] Start: 10-21-2024 End: 10-21-2025 In-Center Sleep Study In-Center Sleep Study Sleep Center Routine Snoring Expected: 10/21/2024 (Approximate), Expires: 10/21/2025 [facility] Service Area Work Phone: Comment on above: Expected: 10/21/2024 (Approximate), Expires: 10/21/2025 Start: 12-28-2023 COVID-19 Vaccine ( season) COVID-19 Vaccine ( season) [facility] Start: 2010 Pneumococcal vaccination Pneumococcal Vaccine (1 of 1 - PCV) [facility] Start: 2010 Zoster Vaccines (1 o f 2) Zoster Vaccines (1 of 2) [facility] Start: 2000 Screening for malign ant neoplasm of breast Mammogram [facility] Start: 1982 DTaP/Tdap/Td Vaccine s (1 - Tdap) DTaP/Tdap/Td Vaccines (1 - Tdap) [facility] Start: 1981 Screening for malign ant neoplasm of cervix [facility] Start: 1978 Diabetes mellitus screening Diabetes Screening [facility] Start: 1978 Hepatitis C screening Hepatitis C Sc reening [facility] Start: 1961 MMR Vaccines (1 of 1 - Standard series) MMR Vaccines (1 of 1 - Standard series) [facility] Start: 1960 HIV screening HIV Screening [facility] Start: 1960 Lipid panel Lipid Panel [facility] Start: 1960 Screening for malign ant neoplasm of colon [facility] Start: 1960 Thyroid stimulating hormone measurement TSH Level [facility] Start: 1960 Yearly Adult [facility] Payers Date Payer Category Payer Self-pay 2024 [employer] ld [facility] [id number] 2024 Unknown [id number] 1960 Unknown [id number] [id number] 1960 Unknown [id number]. [id number] 1960 Unknown [id number] [id number] Unknown [id number] [id number] Unknown [id number]. [id number] Unknown [id number]. [id number] Unknown [id number]. [id number] Unknown [id number]. 2.462 Social History Date Type Detail Facility Start: 10-21-2024 [facility] Start: 04-28-1979 End: 04-28-1987 History of tobacco use Current smoker [facility] Work Phone: Start: 04-28-1979 End: 04-28-1987 History of tobacco use Cigarette Smoker [facility] Work Phone: Start: 10-21-2024 Cigarettes smoked current (pack per day) - Reported 0.3 [facility] Work Phone: Start: 10-21-2024 Tobacco use and exposure Smokeless tobacco non-user [facility] Work Phone: Start: 10-21-2024 Alcoholic beverage intake Ex-drinker (finding) [facility] Work Phone: Start: 10-21-2024 Tobacco use panel [facility] Work Phone: Start: 10-21-2024 Alcohol Comment very rare occasion [facility] Work Phone: Start: 1960 Sex assigned at Not on file U [facility] Work Phone: Start: 01-02-2021 Tobacco smoking stat us [facility]IS Never smoked tobacco (finding) [facility] Start: 03-25-2019 [facility] Start: 1960 Sex Assigned At Female [facility] Goals Date Patient Goal Desired Activity /State Functional Status Date Assessment Result Facility 10-21-2024 Patient Health [facility] ionnaire 2 item (PHQ-2) [Reported] [facility] Work Phone: Evaluation note 10-27-2024 Note Date & Type Note Facility 10-27-2024 Evaluation note Diagnosis Onset Date Resolution Afib acute October 27, 2024 3:31pm [facility] Work Phone: History of Present illness Narrative 10-21-2024 Isabell Leo, - 10/21/2024 4:00 PM EDT Note Date & Type Note Facility 10-21-2024 History of Present illness Narrative Subjective Allyn Stephens is a 64 y.o. [facility] was [facility] by Dr. Ehsan [...] still aches. 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 She is going back to them again in October. She takes a IAG supplement for lymphatic drainage. She bounces on a ball for lymphatic drainage. She follows with a imaging services director. Her highest weight was 253 pounds. She [...] She is interested in seeing a functional aluminum polisher to have a full thyroid workup and discuss other possible natural treatments for the thyroid. I provided her with an integrative medicine referral through . Also gave her names of clinics I found for functional medicine closer to where she lives, including [facility] in [place], and [facility] in [place]. 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 Family Medicine Physician [facility] [address] [facility] [place] [address] This note has been transcribed using [employer] voice recognition system and there is a [...] prior to visit. documented in this encounter [facility] Work Phone: Instructions 10-21-2024 Patient Instructions Note Date & Type Note Facility 10-21-2024 Instructions Isabell Leo DO - 10/21/2024 4:00 PM EDT in lab sleep study locations: [facility] - or other non- one closer to home TSH 11/25 at lab in [place] Integrative medicine referral through in the system [facility] [address] [place] [address] Email: [email or web address] Holistic medicine practitioner in [place], [place] Address: [address] [place], [place] [id number] documented in this encounter [facility] Work Phone: Evaluation note Note Date & [...] Anxiety state, unspecified documented in this encounter [facility] Work Phone: Evaluation note Note Date & Type Note Facility Evaluation note No assessment information availa princess [facility] Work Phone: Reason for referral (narrative) Note Date & Type Note Facility Reason for referral (narrative) No reason for referral information available [facility] Work Phone: Summary Purpose Family History Relationship Condition Age at Onset Recorded Date/T [...] for Visit Chief Complaint Admit Date 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) October 27, 2024 3:31p m Chief Complaint Admit Date 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) October 27, 2024 3:31p m INT LAB ORDERS October 27, 2024 4:26p m Reason for Visit Admit Date Afib October 27, 2024 3:31p m Chief Complaint Admit Date 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) October 27, 2024 3:31p m INT LAB ORDERS October 27, 2024 4:26p m atrial fib-flutter November 06, 2024 8:30 am SNORING November 12, 2024 10:1 1am Additional Source Comments INFORMATION SOURCE (unrecogn ized section and content) DATE CREATED AUTHOR 10/22/2017 [facility] DATE CREATED AUTHOR AUTHOR'S ORGANIZ ATION 05/15/2022 [facility] DATE CREATED AUTHOR AUTHOR'S ORGANIZ ATION 05/23/2024 [facility] DATE CREATED AUTHOR AUTHOR'S ORGANIZ ATION 09/30/2024 [facility] DATE CREATED AUTHOR AUTHOR'S ORGANIZ ATION 10/26/2024 [facility] DATE CREATED AUTHOR AUTHOR'S ORGANIZ ATION 11/10/2024 [facility] Reason for Visit (unrecogniz ed section and content) Reason Comments New Patient Visit Thyroid check Care Teams (unrecognized sec tion and content) Machine Stamper Relationship Specialty [place] [address] [place] [address] PCP - General Family Medicine 09/06/24 Team Status: Active Member Role/Relationship Status Dates Out [facility] Doctor Primary Care Provider Active Team Status: Inactive Member Role/Relationship Status Dates Dr. Kana Hernandez MD Referring Provider Active St art: October 27, 2024 End: October 27, 2024 Dr. Jet Melchor MD Attending Provider Active S tart: October 27, 2024 End: October 27, 2024 Out of [facility] Doctor Primary Care Provider Active Start: October 27, 2024 End: October 27, 2024 Team Status: Inactive Member Role/Relationship Status Dates Out [facility] Doctor Primary Care Provider Active Start: October 27, 2024 End: October 27, 2024 Dr. Jet Melchor MD Attending Provider Active S tart: October 27, 2024 End: October 27, 2024 Dr. Jet Melchor MD Referring Provider Active S tart: October 27, 2024 End: October 27, 2024 Team Status: Active Member Role/Relationship Status Dates ISABELL LEO Primary Care Provider Active Team Status: Active Member Role/Relationship Status Dates Dr. Jet Melchor MD Attending Provider Active S tart: November 05, 2024 Team Status: Inactive Member Role/Relationship Status Dates Dr. Jte Melchor MD Attending Provider Active S tart: November 06, 2024 End: November 06, 2024 Dr. Jet Melchor MD Referring Provider Active S tart: November 06, 2024 End: November 06, 2024 LEATHA WHYTE Primary Care Provider Active S tart: November 06, 2024 End: November 06, 2024 Team Status: Active Member Role/Relationship Status Dates LEATHA WHYTE Primary Care Provider Active S tart: November 12, 2024 LEATHA WHYTE Attending Provider Active Star t: November 12, 2024 LEATHA WHYTE Referring Provider Active Star t: November 12, 2024 FOR RECORDS PERTAINING TO PATIENTS WHO [...] BE BASED ON THE PRIMARY CLINICAL RECORDS. [facility] [employer] provides no warranty or guarantee of the accuracy or completeness of information in this document.
== END | disposition home or self-care (01) ==
LOC: SL 10:11
DX: R06.83 Snoring (principal)
CPT/HCPCS: 95806

== ENCOUNTER → 2024-11-26 | Outpatient (CLI) | payer BC, SELFPAY ==
--- NOTE | 2024-11-26 06:11 | CT_ITS ---
PROCEDURE: CHEST WITH CONTRAST 11/26/2024 REASON FOR EXAM: DILATED AORTIC ROOT TECHNIQUE: CHEST WITH CONTRAST Coronal and Sagittal reconstruction series were provided. CONTRAST: Isovue 3 7 VOLUME: 95 mL One or more dose reduction techniques were used (e.g., Automated exposure control, adjustment of the mA and/or kV according to patient size, use of iterative reconstruction technique). RADIATION DOSE SUMMARY: CTDlvol: 11.75 mGy DLP: 362.84 mGycm COMPARISON: None FINDINGS: Hardware: None Lymph nodes: Small benign-appearing bilateral axillary lymph nodes. Heart and Vasculature: There is dilatation of the root of the ascending thoracic aorta with a transverse dimension of 44.3 mm. No significant coronary artery calcification is seen. The heart is not enlarged. Lungs and Airways: The lungs are clear. Pleura: No pleural effusion. Upper Abdomen: Fatty infiltration of the liver. Bones: Degenerative changes of the thoracic spine. CT/Chest WITH Contrast IMPRESSION: Coronary artery calcification (CAC) is is absent Dilatation of the root of the ascending thoracic aorta with a transverse dimens ion of 44.3 mm. Reading Location: [id number]
--- OUTSIDE RECORDS SUMMARY | 2024-11-26 06:13 | XMS RPT_ITS | CCD ---
Author Organization [facility] Care Team Providers Care Stoper Name Role Phone UNGERER, JULIEN GUM ROLLING MACHINE TENDER Attending Unavailable UNGERER, JULIEN GUM ROLLING MACHINE TENDER Consulting Unavailable UNGERER, JULIEN GUM ROLLING MACHINE TENDER Primary Care Unavailable UNGERER, JULIEN GUM ROLLING MACHINE TENDER Admitting Unavailable PROVIDER, UNKNOWN Consulting Unavailable PHYSICIAN, NONE Primary Care Unavailable DR FRANCISCO CRUZ DO Attending Unavailable [place] FONG, Isabell A Primary Care Provider [phone] Dr. Kana Hernandez MD Referring Provider Dr. Jet Melchor MD Attending Provider [facility] Doctor, Out of Primary Care Provider Ladan Melchor MD, Dr. Chaudhary Referring Provider [phone] BORISUK, ISABELL Primary Care Provider BORISUK, ISABELL Primary Care Provider [phone] BORISUK, ISABELL Attending Provider [phone] BORISUK, ISABELL Referring Provider [phone] BORISUK ISABELL A Attending Unavailable BORISUK, ISABELL A Primary Care Unavailable Town Doctor, Out of Primary Care Unavailable Jill, Jet Referring Unavailable Jill, Hagerman Attending Unavailable SHERIF, MALLY1 Referring Unavailable MALLY GORMAN1 Attending Unavailable SHERIF, KE1 Primary Care Unavailable SHERIF, MALLY1 Primary Care Unavailable Jill, Jet Referring Unavailable Jill, Jet Attending Unavailable Kana Hernandez Referring Unavailable Town Doctor, Out of Primary Care Unavailable Jill, Hagerman Attending Unavailable Jill, Hagerman Attending Unavailable Allergies Allergy Classification Reported Allergen(s) Allergy Type Date of Onset Reaction(s) Facility (6 sources) Amoxicillin; Translations: [AMOXICILLIN] Drug Allergy 01-02-2021 Diarrhea [facility] (4 sources) Clavulanate Drug Allergy 01-02-2021 Diarrhea [facility] (1 source) Amoxicillin Drug Allergy 01-02-2021 [facility] Rep[facility] (1 source) Clavulanate Drug Allergy 01-02-2021 [facility] Repository Medications Current Medications Medication Drug Class(es) Dates Sig (Normalized) Sig (Original) ascorbic acid 100 mg chewable tablet (4 sources) Vitamin C Start: 10-20-2020 take 1 tablet by mouth once daily Ascorbic Acid (Vitamin C) 100 mg tablet,chewable Active 100 mg PO DAILY October 20, 2020 12:00am cholecalciferol 0.125 mg oral capsule (4 sources) Vitamin D Start: 10-20-2020 take 1 capsule by mouth once daily Cholecalciferol (Vitamin D3) 125 mcg (5,000 unit) capsule Active 5000 U PO DAILY October 20, 2020 12:00am levothyroxine sodium 0.1 mg oral tablet (9 sources) l-Thyroxine Start: 10-27-2024 take 1 tablet [...] 2024 3:41pm lisinopril 10 mg oral tablet (9 sources) Angiotensin Converting Enzyme Inhibitor Start: 10-27-2024 [...] 2024 3:41pm LORazepam 1 mg oral tablet (9 sources) Benzodiazepine Start: 09-27-2024 LORazepam (Ati van) [...] succinate 25 mg extended release oral tablet (20 sources) beta-Adrenergic Carroll Start: 10-27-2024 take 2 [...] 08, 2013 1:00am April 19, 2019 9:57am [place]-3 Fatty Acids 1,000 mg capsule (4 sources) Start: 04-19-2019 take 1 capsule by mouth once daily [place]-3 Fatty Acids 1,000 mg capsule Active 1000 mg PO DAILY April 19, 2019 1:00am ubidecarenone 100 mg oral capsule (8 sources) Start: 10-20-2020 Coenzyme Q10 ( Co Q-10) 100 mg capsule Active 100 mg PO DAILY October 20, 2020 12:00am Start: 04-19-2019 End: 10-20-2020 Coenzyme Q10 (Ultra Coq10) 7 5 mg capsule Discontinued 75 mg PO DAILY April 19, 2019 1:00am October 20, 2020 3:14pm Vitamin B Complex capsule (4 sources) Start: 10-20-2020 Vitamin B Comp dagoberto capsule Active 1 NMA PO DAILY October 20, 2020 12:00am Completed/Discontinued Medications Medication Drug Class(es) Dates Sig (Normalized) Sig (Original) acetaminophen 325 mg / HYDROcodone bitartrate 5 mg oral tablet (4 sources) Opioid Agonist Start: 11-14-2020 End: 01-02-2021 Hydrocodone-Acetam inophen 5-325 mg tablet Discontinued 1 {tbl} PO EVERY 6 HOURS as needed for pain 10 3 0 November 14, 2020 January 02, 2021 9:48am Calculus of ureter Calculus of ureter aspirin 81 mg chewable tablet (4 sources) Platelet Aggregation Inhibitor, Nonsteroidal Anti-inflammatory Drug Start: 04-08-2013 End: 02-08-2019 take 1 tablet by mouth once daily Aspirin 81 MG tablet,chewable Discontinued 81 mg PO DAILY@0800 April 08, 2013 1:00am February 08, 2019 8:10am enalapril maleate 10 mg oral tablet (4 sources) Angiotensin Converting Enzyme Inhibitor Start: 04-08-2013 End: 04-19-2019 take 1 tablet by mouth twice daily Enalapril Maleate 10 MG tablet Discontinued 10 mg PO TWICE A DAY April 08, 2013 1:00am April 19, 2019 9:57am hydrOXYzine hydrochloride 50 mg oral tablet (8 sources) Antihistamine Start: 10-20-2020 End: 10-25-2020 take [...] DAILY NEEDED as needed for Anxiety 30 0 March 25, 2019 2:51am April 19, 2019 9:56am ketorolac tromethamine 10 mg oral tablet (4 sources) Nonsteroidal Anti-inflammatory Drug, Cyclooxygenase Inhibitor Start: 11-14-2020 End: 01-02-2021 take 1 tablet by mouth every six hours as needed for pain Ketorolac 10 mg tablet Discontinued 10 mg PO EVERY 6 HOURS as needed for pain 12 3 0 November 14, 2020 12:00am January 02, 2021 9:48am linseed oil 1000 mg oral capsule (4 sources) Start: 10-20-2020 End: 10-27-2024 take 1 capsule by mouth once daily Flaxseed Oil 1,000 mg capsule Discontinued 1000 mg PO DAILY October 20, 2020 12:00am October 27, 2024 3:42pm administer with a meal Multivitamin With Folic Acid 1 TABLET tablet (4 sources) Start: 04-08-2013 End: 10-20-2020 take 1 tablet by mouth once daily Multivitamin With Folic Acid 1 TABLET tablet Discontinued 1 {tbl} PO DAILY April 08, 2013 1:00am October 20, 2020 3:16pm ondansetron 4 mg disintegrating oral tablet (4 sources) Serotonin-3 Receptor Antagonist Start: 11-14-2020 End: 01-02-2021 take 1 tablet by mouth every eight hours as needed for nausea and vomiting Ondansetron 4 mg tablet,disintegr ating Discontinued 4 mg PO Q8H as needed for nausea and vomiting 10 0 November 14, 2020 12:00am January 02, 2021 9:48am PARoxetine hydrochloride 10 mg oral tablet (4 sources) Serotonin Reuptake Inhibitor Start: 04-08-2013 End: 02-08-2019 take 1 tablet by mouth every other day Paroxetine Hcl 10 MG tablet Discontinued 10 mg PO EVERY OTHER DAY April 08, 2013 1:00am February 08, 2019 8:10am Problems Active Problems Problem Classification Problem Date Documented Da te Episodic/Chronic Anxiety disorders (12 sources) Anxiety; Translations: [Anxiety disorder, unspecified] Onset: 10-21-2024 10-21-2024 Chronic Aortic; peripheral; and visceral artery aneurysms (2 sources) Aortic root dilatation; Translations: [Thoracic aortic ectasia] 11-10-2024 Chronic Comment on above: 4.6 cm per echo 10/27; Calculus of urinary tract (4 sources) Ureteric stone; Translations: [Calculus of ureter] 10-26-2024 Episodic Cardiac dysrhythmias (11 sources) Paroxysmal atrial fibrillation; Translations: [Paroxysmal atrial fibrillation] Onset: 10-21-2024 10-21-2024 Chronic Cardiac dysrhythmias (12 sources) Tachycardia, unspecified; Translations: [Palpitations] Onset: 09-25-2024 10-26-2024 Episodic Essential hypertension (10 sources) Essential (primary) hypertension; Translations: [Essential hypertension] Onset: 05-22-2024 10-21-2024 Chronic Other acquired deformities (4 sources) Scoliosis of lumbar spine; Translations: [Scoliosis, unspecified] 10-26-2024 Chronic Other bone disease and musculoskeletal deformities (16 sources) Segmental and somatic dysfunction; Translations: [Segmental [...] Chronic Other nutritional; endocrine; and metabolic disorders (4 sources) Obesity; Translations: [Obesity, unspecified] 10-26-2024 Chronic Other nutritional; endocrine; and metabolic disorders (2 sources) Other obesity due to excess calories; Translations: [Other obesity due to excess calories] Onset: 10-21-2024 Chronic Other nutritional; endocrine; and metabolic disorders (2 sources) Body mass index (BMI) 30.0-30.9, adult; Translations: [Body mass index (BMI) 30.0-30.9, adult] Onset: 10-21-2024 Chronic Other screening for suspected conditions (not mental disorders or infectious disease) (1 source) Encounter for screening for lipoid disorders; Translations: [Encounter for screening for lipoid disorders] Onset: 05-22-2024 Episodic Residual codes; unclassified (4 sources) Hereditary disorder of endocrine system; Translations: [Genetic susceptibility to other disease] 10-26-2024 Episodic Spondylosis; intervertebral disc disorders; other back problems (4 sources) Degeneration of cervical intervertebral disc; Translations: [Other cervical disc degeneration, unspecified cervical region] 10-26-2024 Chronic Thyroid disorders (11 sources) Hypothyroidism, unspecified; Translations: [Acquired hypothyroidism] Onset: 05-22-2024 10-21-2024 Chronic Unclassified (1 source) Unknown / UNK(Unknown) Onset: 12-02-2016 Unclassified (1 source) Obesity, class 1; Translations: [Obesity, class 1] Onset: 10-21-2024 Past or Other Problems Problem Classification Problem Date Documented Da te Episodic/Chronic Unclassified (1 source) Obesity, class 1; Translations: [Obesity, class 1] Onset: 10-21-2024 Results Test Name Value Interpretation Reference Range Facility DRUG ABUSE SCREEN 7,SERUMon 11-13-2024 AMPHETAMINE SCREEN, SERUM Negative Normal [facility] Comment on above: Performed By: #### 1 [id number] #### [facility] [address] [place] [address] Scientific Editor: Stoney Colin M.D.,PhD #### [id number] #### [facility] [address], [address] [place] [phone] Scientific Editor: Kieran Murphy MD BARBITURATES Negative Normal [facility] Comment on above: Performed By: #### 1 [id number] #### [facility]/[place] [id number] [facility] [address] [place], [place] Scientific Editor: Stoney Colin M.D.,PhD #### [id number] #### [facility] of [address], [address] [place], [place] [id number] Scientific Editor: Kieran Murphy MD Benzodiazepines Ql (U) Negative Normal [facility] Comment on above: Performed By: #### 1 [id number] #### [facility]/[address] [place], [place] Scientific Editor: Stoney Colin M.D.,PhD #### [id number] #### [facility] of [address], [address] [place] [address] Scientific Editor: Kieran Murphy MD COCAINE METABOLITES Negative Normal [facility] Comment on above: Performed By: #### 1 [id number] #### [facility]/[address] [place], [place] Scientific Editor: Stoney Colin M.D.,PhD #### [id number] #### [facility] of [address], [address] [place] [address] Scientific Editor: Kieran Murphy MD COMMENT SEE NOTE Normal [facility] Comment on above: Result Comment: The submitted serum specimen was tested at the immunoassay screen cutoffs listed below and, if POSITIVE, were confirmed by C/MS at the listed confirmatory test cutoffs. Confirmatory testing not performed on negative screens. Cutoffs units are ng/mL. Drug Class/ Initial Test Confirmatory Drug Level Test Level Amphetamines 100 Amphetamine 50 Methamphetamine 50 MDMA (Ecstacy) 50 MDA 50 Barbiturates 100 Amobarbital 100 Butabarbital 100 Butalbital 100 Pentobarbital 100 Phenobarbital 100 Secobarbital 100 Benzodiazepines 100 Alprazolam metabolite 10 Oxazepam 50 Lorazepam 50 Temazepam 50 Nordiazepam 50 Cocaine metabolites 100 Cocaine 20 Benzoylecgonine 20 Cocaethylene 20 Marijuana metabolites 30 Carboxy-THC 5 Opiates 100 Morphine 50 Codeine 50 Hydrocodone 50 Hydromorphone 50 Oxycodone 50 Phencyclidine 10 5 This test was developed and its analytical performance characteristics have been determined by [employer] [place], [place]. It has not been cleared or approved by the FDA. This assay has been validated pursuant to the CLIA regulations and is used for clinical purposes. Performed By: #### 1 [id number] #### [facility]/[address] [place], [place] Scientific Editor: Stoney Colin M.D.,PhD #### [id number] #### [facility] [place] [address] Scientific Editor: Kieran Murphy MD MARIJUANA Negative Normal [facility] Comment on above: Performed By: #### 1 [id number] #### [facility]/[address] [place], [place] Scientific Editor: Stoney Colin M.D.,PhD #### [id number] #### [facility] [address], [address] [place] [address] Scientific Editor: Kieran Murphy MD Opiates Ql (U) Negative Normal [facility] Comment on above: Performed By: #### 1 [id number] #### [facility]/[address] [place], [place] Scientific Editor: Stoney Colin M.D.,PhD #### [id number] #### [facility] of [place] [address] [address] , [address] [place] [address] Scientific Editor: Kieran Murphy MD PCP (PHENCYCLIDINE) Negative Normal [facility] Comment on above: Performed By: #### 1 [id number] #### [facility]/[place] [id number] [facility] [place], [place] Scientific Editor: Stoney Colin M.D.,PhD #### [id number] #### [facility] of [place] [address], [address] [place] [address] Scientific Editor: Kieran Murphy MD TSH W/REFLEX TO FT4on 2024 TSH W/REFLEX TO FT4 1.04 mIU/L Normal 0.40-4.50 [facility] Comment on above: Performed By: #### 1 [id number] #### [facility] [address] [place] [address] Scientific Editor: Stoney Colin M.D.,PhD #### [id number] #### [facility] [address] [facility], [address] [place] [address] Scientific Editor: Kieran Murphy MD Echocardiogram study reportO rdered By: Jet Melchor on 11-07-2024 Study report [facility] [address] [place] [address] Echo Complete 11/05/242048 MR#: [id number] Acct: [id number] Name: ALLYN STEPHENS SHERRI Rep #:[id number] : 1960 64 From: Jet Jarvis Attending Dr: Dr. Jet Melchor MD S tatus: REG CLI Ordering Dr: Jet Melchor MD Date: 04/21 Location: [facility] Sex: F C Admitted: Reason For Study [...] Melchor Referring Physician: OTD Performed By: Mimi Mitchell RDCS, RVT 11/07/24 1641 Date _ Jet Melchor MD CC: Dr. Jet Melchor MD; ISABELL Costa Date Dictated: 11/05/242048 Date Transcribed: 11/07/24 164 Ultimate [employer]ops Referee: Signed [facility] Work Phone: Echo Completeon 11-06-2024 Echo Complete [facility] [address] [place] [address] Echo Complete 11/05/242048 MR#: [id number] Acct: [id number] Name: ALLYN STEPHENS Rep #: [id number] : 1960 64 From: Jet Melchor MD Attending Dr: Dr. Jet Melchor MD Status: YVETTE HPOE Ordering Dr: Jet Melchor MD Date: 11/06/24 Location: [facility] Sex: F C Admitted: Reason For Study [...] OTD Performed By: Mimi Mitchell, PRAVEEN, RVT 11/07/241640 Date Jet Melchor MD CC: Dr. Jet Melchor MD; ISABELL LEO Date Dictated: 11/05/242048 Date Transcribed: 11/07/241640 [employer]ops Referee: Signed Normal [facility] Cardiology Visit Reporton Cardiology Visit Report [facility] [address] [place] [address]. [address] [place], [place] [address] OFFICE VISIT Date of Service: 10/27/24 MR#: [id number] Acct: [id number] Name: ALLYN STEPHENS Rep #: [id number] : 1960 Provider: Dr. Jet Melchor MD Age/Sex: 64/F Location: [facility] Status: Signed HPI HPI History of Present Illness Details: Pleasant 64-year-old lady with a previous history of palpitations who presents for evaluation of atrial fibrillation. 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 Normal [facility] Free T3on 10-27-2024 Free T3 [Mass/Vol] 2.3 pg/mL Normal 2.18-3.98 [facility] Comment on above: Performed By: #### L 501.71823, L501.9520, L501.9310 #### [facility] Laboratory [address] [place], [place], [id number] Free H3Iyivmxs By: Jet johnson on 10-27-2024 Free T3 [Mass/Vol] 2.3 pg/mL 2.18-3.98 [facility] T4 Total, Thyroxinon 025 T4 [Mass/Vol] 9.9 ug/dL Normal 4.8-13.9 [facility] Comment on above: Performed By: #### L 501.54216, L501.9520, L501.9310 #### [facility] Laboratory [address] [place], [place], [phone] TSH DL <= 0.005 mIU/L QnOrde red By: Jet Melchor on 10-27-2024 TSH Qn 2.960 uIU/mL 0.300-4.200 [facility] Thyroid Stim Hormone (TSH)on 10-27-2024 TSH 2.960 uIU/mL Normal 0.300-4.200 [facility] Comment on above: Performed By: #### L 501.36585, L501.9520, L501.9310 #### [facility] Laboratory [address] [place], [place], [id number] ThyroxineOrdered By: Jet nowak on 10-27-2024 T4 [Mass/Vol] 9.9 ug/dL 4.8-13.9 [facility] .Auto Diffon 09-25-2024 Basophil, Absolute 0.1 10 3/mcL Normal 0.0-0.3 [facility] Comment on above: Performed By: #### A KAMRON, TROPHS, GFR, BMP, MDW, MG, CBC, ADIFF, PBNP #### [address] [address] Basophils/100 WBC (Bld) 0.8 % Normal 0.0-2.5 [facility] Comment on above: Performed By: #### A KAMRON, TROPHS, GFR, BMP, MDW, MG, CBC, ADIFF, PBNP #### [address] [address] Eosinophil, Absolute 0.2 10 3/mcL Normal 0.0-0.7 [facility] Comment on above: Performed By: #### A KAMRON, TROPHS, GFR, BMP, MDW, MG, CBC, ADIFF, PBNP #### [address] [address] Eosinophils/100 WBC (Bld) 2.0 % Normal 0.0-6.0 [facility] Comment on above: Performed By: #### A KAMRON, TROPHS, GFR, BMP, MDW, MG, CBC, ADIFF, PBNP #### [address] [address] Lymphocyte, Absolute 2.6 10 3/mcL Normal 0.9-4.3 [facility] Comment on above: Performed By: #### A KAMRON, TROPHS, GFR, BMP, MDW, MG, CBC, ADIFF, PBNP #### [address] [address] Lymphocytes/100 WBC (Bld) 31.0 % Normal 20.0-40.0 [facility] Comment on above: Performed By: #### A KAMRON, TROPHS, GFR, BMP, MDW, MG, CBC, ADIFF, PBNP #### [address] [address] Monocyte, Absolute 0.5 10 3/mcL Normal 0.1-1.4 [facility] Comment on above: Performed By: #### A KAMRON, TROPHS, GFR, BMP, MDW, MG, CBC, ADIFF, PBNP #### [address] [address] Monocytes/100 WBC (Bld) 5.8 % Normal 2.0-13.0 [facility] Comment on above: Performed By: #### A KAMRON, TROPHS, GFR, BMP, MDW, MG, CBC, ADIFF, PBNP #### [address] [address] Neutrophils/100 WBC (Bld) 60.4 % Normal 50.0-75.0 [facility] Comment on above: Performed By: #### A KAMRON, TROPHS, GFR, BMP, MDW, MG, CBC, ADIFF, PBNP #### [address] [address] .GFRon 09-25-2024 Estimated Glomerular Filtration Rate 86 ml/min/1.73sqm Normal [facility] Comment on above: Result Comment: Stages [...] results. Performed By: #### T SH #### [address] [address] .MDWon 09-25-2024 Monocyte Distribution Width 21.03 High 0.00-20.00 [facility] Comment on above: Result Comment: For adults in ED, MDW>20.0 may be associated with a higher risk of sepsis during the first 12hrs of hospital admission Performed By: #### A KAMRON, TROPHS, GFR, BMP, MDW, MG, CBC, ADIFF, PBNP #### [address] [address] .NEUABSon 09-25-2024 Neutrophil, Absolute 5.1 10 3/mcL Normal 2.3-8.1 [facility] Comment on above: Performed By: #### A KAMRON, TROPHS, GFR, BMP, MDW, MG, CBC, ADIFF, PBNP #### [address] [address] BMPon 09-25-2024 BUN/Creatinine Ratio 26 ratio Normal 7-27 [facility] Comment on above: Performed By: #### A KAMRON, TROPHS, GFR, BMP, MDW, MG, CBC, ADIFF, PBNP #### [address] [address] Calcium [Mass/Vol] 10.2 mg/dL Normal 8.4-10.2 [facility] Comment on above: Performed By: #### A KAMRON, TROPHS, GFR, BMP, MDW, MG, CBC, ADIFF, PBNP #### [address] [address] Chloride [Moles/Vol] 102 mmol/L Normal 98-107 [facility] Comment on above: Performed By: #### A KAMRON, TROPHS, GFR, BMP, MDW, MG, CBC, ADIFF, PBNP #### [address] [address] CO2 [Moles/Vol] 25 mmol/L Normal 23-31 [facility] Comment on above: Performed By: #### A KAMRON, TROPHS, GFR, BMP, MDW, MG, CBC, ADIFF, PBNP #### [address] [address] Creatinine [Mass/Vol] 0.77 mg/dL Normal 0.51-0.95 [facility] Comment on above: Performed By: #### A KAMRON, TROPHS, GFR, BMP, MDW, MG, CBC, ADIFF, PBNP #### [address] [address] Electrolyte Balance 11.0 mEq/L Normal 4.0-15.0 [facility] Comment on above: Performed By: #### A KAMRON, TROPHS, GFR, BMP, MDW, MG, CBC, ADIFF, PBNP #### [address] [address] Glucose [Mass/Vol] 128 mg/dL High 80-115 [facility] Comment on above: Performed By: #### A KAMRON, TROPHS, GFR, BMP, MDW, MG, CBC, ADIFF, PBNP #### [address] [address] Potassium [Moles/Vol] 3.6 mmol/L Normal 3.5-5.1 [facility] Comment on above: Performed By: #### A KAMRON, TROPHS, GFR, BMP, MDW, MG, CBC, ADIFF, PBNP #### [address] [address] Sodium [Moles/Vol] 138 mmol/L Normal 136-145 [facility] Comment on above: Performed By: #### A KAMRON, TROPHS, GFR, BMP, MDW, MG, CBC, ADIFF, PBNP #### [address] [address] Urea nitrogen [Mass/Vol] 20 mg/dL High 7-18 [facility] Comment on above: Performed By: #### A KAMRON, TROPHS, GFR, BMP, MDW, MG, CBC, ADIFF, PBNP #### [address] [address] CBCon 09-25-2024 Erythrocyte distribution width (RBC) [Ratio] 13.6 % Normal 11.5-15.5 [facility] Comment on above: Performed By: #### A AKMRON, TROPHS, GFR, BMP, MDW, MG, CBC, ADIFF, PBNP #### [address] [address] Hematocrit (Bld) [Volume fraction] 44.7 % Normal 34.0-46.0 [facility] Comment on above: Performed By: #### A KAMRON, TROPHS, GFR, BMP, MDW, MG, CBC, ADIFF, PBNP #### [address] [address] Hgb 14.8 G/dL Normal 12.0-16.0 [facility] Comment on above: Performed By: #### A KAMRON, TROPHS, GFR, BMP, MDW, MG, CBC, ADIFF, PBNP #### [address] [address] MCH (RBC) [Entitic mass] 30.1 pg Normal 27.0-33.0 [facility] Comment on above: Performed By: #### A KAMRON, TROPHS, GFR, BMP, MDW, MG, CBC, ADIFF, PBNP #### [address] [address] MCHC 33.0 G/dL Normal 32.0-36.0 [facility] Comment on above: Performed By: #### A KAMRON, TROPHS, GFR, BMP, MDW, MG, CBC, ADIFF, PBNP #### [address] [address] MCV (RBC) [Entitic vol] 91.1 fL Normal 80.0-99.0 [facility] Comment on above: Performed By: #### A KAMRON, TROPHS, GFR, BMP, MDW, MG, CBC, ADIFF, PBNP #### [address] [address] Platelet 267 10 3/mcL Normal 150-450 [facility] Comment on above: Performed By: #### A KAMRON, TROPHS, GFR, BMP, MDW, MG, CBC, ADIFF, PBNP #### [address] [address] Platelet mean volume (Bld) [Entitic vol] 7.4 fL Normal 6.6-10.5 [facility] Comment on above: Performed By: #### A KAMRON, TROPHS, GFR, BMP, MDW, MG, CBC, ADIFF, PBNP #### [address] [address] RBC 4.91 10 6/mcL Normal 4.10-5.30 [facility] Comment on above: Performed By: #### A KAMRON, TROPHS, GFR, BMP, MDW, MG, CBC, ADIFF, PBNP #### [address] [address] WBC 8.4 10 3/mcL Normal 4.5-10.8 [facility] Comment on above: Performed By: #### A KAMRON, TROPHS, GFR, BMP, MDW, MG, CBC, ADIFF, PBNP #### [place] [address] MGon 09-25-2024 Magnesium [Mass/Vol] 2.0 mg/dL Normal 1.8-2.4 [facility] Comment on above: Performed By: #### A KAMRON, TROPHS, GFR, BMP, MDW, MG, CBC, ADIFF, PBNP #### [place] [address] PBNPon 09-25-2024 Natriuretic peptide B (Bld) [Mass/Vol] 154 pg/mL High 0-125 [facility] Comment on above: Result Comment: NT-p roBNP results of less than 300 pg/mL effectively rules out acute congestive heart failure with 99% negative predictive value. Performed By: #### T #### [address] [address] TROPHSon 09-25-2024 High Sensitivity Troponin I 21 ng/L Normal 0-51 [facility] Comment on above: Result Comment: High Sensitive Troponin I Reference Ranges: Female: 0-51 ng/L Male: 0-76 ng/L Testing performed on [employer] using a homogeneous sandwich chemiluminescent immunoassay based on [employer] technology. Performed By: #### T [facility] #### [place] [address] High Sensitivity Troponin I 9 ng/L Normal 0-51 [facility] Comment on above: Result Comment: High Sensitive Troponin I Reference Ranges: Female: 0-51 ng/L Male: 0-76 ng/L Testing performed on [employer] using a homogeneous sandwich chemiluminescent immunoassay based on [employer] technology. Performed By: #### A KAMRON, TROPHS, GFR, BMP, MDW, MG, CBC, ADIFF, PBNP #### [address] [address] TSHon 09-25-2024 TSH Qn 2.04 m[IU]/L Normal 0.36-3.74 [facility] Comment on above: Performed By: #### T SH #### [address] [address] XR CHEST 1 VIEWon 09-25-2024 XR CHEST [...] 4:05:09 PM Ordering Provider: MCKAYLA CARRERA Normal [facility] CBC + DIFFon 05-22-2024 Baso # 0.03 x10EE3/UL Normal 0.00 - 0.10 [facility] Comment on above: Performed By: #### 2 [address]82 #### [place] [address] Basophils/100 WBC (Bld) 0.4 % Normal 0.0 - 2.0 [facility] Comment on above: Performed By: #### 2 43170 #### [place] [address] CBC + DIFF Normal [facility] Comment on above: Result Comment: CBC- COMPLETE BLOOD COUNT Performed By: #### 2 39966 #### [facility],[address] [place] [address] EO # 0.13 x10EE3/UL Normal 0.00 - 0.50 [facility] Comment on above: Performed By: #### 2 77601 #### [facility],[address] [place], [place] [address] Eosinophils/100 WBC (Bld) 2.0 % Normal 0.0 - 7.0 [facility] Comment on above: Performed By: #### 2 28378 #### [facility],[address] [place] [address] Erythrocyte distribution width (RBC) [Ratio] 13.9 % Normal 12.0 - 15.6 [facility] Comment on above: Performed By: #### 2 79768 #### [facility],[address] [place] [address] Hematocrit (Bld) [Volume fraction] 43.8 % Normal 34.0 - 46.0 [facility] Comment on above: Performed By: #### 2 74427 #### [facility],[address] [place], [place] [address] Hemoglobin (Bld) [Mass/Vol] 14.5 g/dL Normal 12.0 - 16.0 [facility] Comment on above: Performed By: #### 2 28633 #### [facility],[address] [place] [address] Lymph # 1.26 x10EE3/UL Normal 0.80 - 2.80 [facility] Comment on above: Performed By: #### 2 46997 #### [facility],[address] [place], [place] [address] Lymphocytes/100 WBC (Bld) 19.6 % Low 20.0 - 45.0 [facility] Comment on above: Performed By: #### 2 21506 #### [facility],[address] [place] [address] MANUAL DIFF N/A Normal [facility] Comment on above: Performed By: #### 2 91173 #### [facility],[address] [place] [address] MCH (RBC) [Entitic mass] 31 pg Normal 27 - 33 [facility] Comment on above: Performed By: #### 2 37945 #### [facility],[address] [place] [address] MCHC 33 X10 3 Normal 32 - 36 [facility] Comment on above: Performed By: #### 2 10286 #### [facility],[address] [place] [address] MCV (RBC) [Entitic vol] 93 fL Normal 80 - 99 [facility] Comment on above: Performed By: #### 2 52739 #### [facility],[address] [place] [address] [place]ing # 0.53 x10EE3/UL Normal 0.20 - 1.00 [facility] Comment on above: Performed By: #### 2 25220 #### [facility],[address] [place] [address] MONOS % 8.2 % Normal 0.0 - 10.0 [facility] Comment on above: Performed By: #### 2 03432 #### [facility],[address] [place] [address] Morphology Kelvin (Bld) [Interp] N/A Normal [facility] Comment on above: Performed By: #### 2 21029 #### [facility],[address] [place] [address] Neut # 4.49 x10EE3/UL Normal 1.50 - 7.10 [facility] Comment on above: Performed By: #### 2 19560 #### [facility],[address] [place] [address] Neutrophils/100 WBC (Bld) 69.9 % Normal 46.0 - 76.0 [facility] Comment on above: Performed By: #### 2 47617 #### [facility],[address] [place] [address] PLATELET 244 x10EE3/UL Normal 150 - 450 [facility] Comment on above: Performed By: #### 2 40176 #### [facility],[address] [place] [address] Platelet mean volume (Bld) [Entitic vol] 7.3 fL Normal 6.6 - 10.5 [facility] Comment on above: Result Comment: AUTO MATED DIFFERENTIAL Performed By: #### 2 90627 #### [facility],[address] [place] [address] RBC 4.72 x 10EE6/UL Normal 4.10 - 5.30 [facility] Comment on above: Performed By: #### 2 79406 #### [facility],[address] [place] [address] WBC 6.4 x 10EE3/UL Normal 4.5 - 10.8 [facility] Comment on above: Performed By: #### 2 98067 #### [facility],[address] [place] [address] CMP with eGFRon 05-22-2024 AGE 63 years Normal [facility] Comment on above: Performed By: #### 2 96694 #### [facility],[address] [place] [address] Albumin [Mass/Vol] 4.1 g/dL Normal 3.4 - 5.0 [facility] Comment on above: Performed By: #### 2 75276 #### [facility],[address] [place] [address] Albumin/Globulin [Mass ratio] 1.2 {ratio} Normal 0.9 - 1.6 [facility] Comment on above: Performed By: #### 2 32676 #### [facility],[address] [place] [address] ALK PHOS 102 U/L Normal 46 - 116 [facility] Comment on above: Performed By: #### 2 81068 #### [facility],[address] [place] [address] ALT [Catalytic activity/Vol] 32 U/L Normal 16 - 63 [facility] Comment on above: Performed By: #### 2 69632 #### [facility],[address] [place] [address] Anion gap [Moles/Vol] 14 mmol/L Normal 10 - 20 [facility] Comment on above: Performed By: #### 2 89666 #### [facility],[address] [place] [address] AST [Catalytic activity/Vol] 21 U/L Normal 13 - 39 [facility] Comment on above: Performed By: #### 2 33611 #### [facility],[address] [place] [address] B/C RATIO 29 ratio Normal 0 - 30 [facility] Comment on above: Performed By: #### 2 24856 #### [facility],[address] [place] [address] Bilirubin [Mass/Vol] 0.6 mg/dL Normal 0.2 - 1.0 [facility] Comment on above: Performed By: #### 2 25637 #### [facility],[address] [place] [address] Calcium [Mass/Vol] 9.9 mg/dL Normal 8.5 - 10.1 [facility] Comment on above: Performed By: #### 2 00482 #### [facility],[address] [place] [address] Chloride [Moles/Vol] 106 mmol/L Normal 98 - 107 [facility] Comment on above: Performed By: #### 2 05394 #### [facility],[address] [place] [address] CMP with eGFR Normal [facility] Comment on above: Result Comment: COMP REHENSIVE METABOLIC PANEL Performed By: #### 2 91207 #### [facility],[address] [place] [address] CO2 [Moles/Vol] 27.8 mmol/L Normal 21.0 - 32.0 [facility] Comment on above: Performed By: #### 2 67066 #### [facility],[address] [place] [address] Creatinine [Mass/Vol] 0.65 mg/dL Normal 0.55 - 1.02 [facility] Comment on above: Performed By: #### 2 43756 #### [facility],[address] [place] [address] GFR/1.73 sq M.predicted among non-blacks MDRD (S/P/Bld) [Vol rate/Area] mL/min/{1.73_m2} Normal 60 - 999 [facility] Comment on above: Performed By: #### 2 71006 #### [facility],[address] [place] [address] Result Comment: ACCO RDING TO THE NATIONAL KIDNEY DISEASE EDUCATION PROGRAM(NKDE), A NORMAL eGFR IS A VALUE GREATER THAN OR EQUAL TO 60 ML/MIN/1.73 SQ METERS. CHRONIC KIDNEY DISEASE: <60mL/MIN/1.73 SQ METERS KIDNEY FAILURE: <15mL/MIN/1.73 SQ METERS THIS TEST SHOULD ONLY BE USED FOR PATIENTS 18 YEARS OF AGE AND OLDER. Globulin (S) [Mass/Vol] 3.3 g/dL Normal 1.5 - 3.8 [facility] Comment on above: Performed By: #### 2 71440 #### [facility],[address] [place] [address] Glucose [Mass/Vol] 95 mg/dL Normal 74 - 106 [facility] Comment on above: Performed By: #### 2 98383 #### [facility],[address] [place] [address] Potassium [Moles/Vol] 3.6 mmol/L Normal 3.5 - 5.1 [facility] Comment on above: Performed By: #### 2 48523 #### [facility],[address] [place] [address] Protein [Mass/Vol] 7.4 g/dL Normal 6.4 - 8.2 [facility] Comment on above: Performed By: #### 2 83230 #### [facility],[address] [place] [address] Sodium [Moles/Vol] 144 mmol/L Normal 136 - 145 [facility] Comment on above: Performed By: #### 2 68470 #### [facility],[address] [place] [address] Urea nitrogen [Mass/Vol] 19 mg/dL High 7 - 18 [facility] Comment on above: Performed By: #### 2 10248 #### [facility],[address] [place] [address] LIPID PROFILEon 05-22-2024 Cholesterol [Mass/Vol] 290 mg/dL High 0 - 240 [facility] Comment on above: Performed By: #### 2 71653 #### [facility],[address] [place] [address] Cholesterol in HDL [Mass/Vol] 130 mg/dL High 40 - 60 [facility] Comment on above: Performed By: #### 2 91437 #### [facility],[address] [place] [address] Cholesterol in LDL [Mass/Vol] 151 mg/dL High 0 - 129 [facility] Comment on above: Performed By: #### 2 62760 #### [facility],[address] [place] [address] Cholesterol.total/Ch olesterol in HDL [Mass ratio] 2.2 {ratio} Normal 0.0 - 5.0 [facility] Comment on above: Performed By: #### 2 75927 #### [address] [address] Lipid 1996 panel Normal [facility] Comment on above: Result Comment: LIPI D PROFILE Performed By: #### 2 28996 #### [address] [address] Triglyceride [Mass/Vol] 44 mg/dL Normal 0 - 150 [facility] Comment on above: Performed By: #### 2 35698 #### [address] [address] T4-FREE (FREE THYROXINE)on 0 05-22-2024 Free T4 [Mass/Vol] 1.03 ng/dL Normal 0.76 - 1.46 [facility] Comment on above: Result Comment: P otential of falsely elevated results when biotin concentrations are > 10 ng/mL. Performed By: #### 2 51976 #### [address] [address] TSHon 05-22-2024 TSH Qn 6.04 m[IU]/L High 0.35 - 3.74 [facility] Comment on above: Performed By: #### 2 36758 #### [address] [address] HPVon 05-14-2022 HPV Interp Normal See Interp HPVN [facility] ([place]) Comment on above: Order Comment: Order placed by AP_HPV_ORDER rule from [id number] Result Comment: High Risk HPV Typing: NEGATIVE [...] HPVN Performed By: #### H PV #### [address] [address] HPV Source Cervix Normal [facility] ([place]) Comment on above: Order Comment: Order placed by AP_HPV_ORDER rule from [id number] Performed By: #### H PV #### [address] [address] CNCOon 12-02-2016 [facility] HNO ID: [id number]: Mammography CoordinatorService: (none)Author Type: PhysicianType: LetterFiled: 12/03/2016 11:32 PMNote Text:December 02, 2016 PID: [id number] LilianeFrantz Stephens[address] [place], [place] [address]Rrkx Ms. Stephens,We are pleased to inform you that the results of your recent breastimaging exam on 12/02/2016 are normal. Early detection of cancer is veryimportant. We also understand recommendations regarding breast cancerscreening are controversial. Please discuss with your primary careprovider which strategy is best for you and whether a mammogram is rightfor you.Your imaging studies and report will be kept on file at [facility] part of your permanent medical record and are available for yourcontinuing care.Thank you for allowing us to help in meeting your health care needs.Sincerely,Dr. AshfordInterpreting RadiologistBoston Home For Incurables's [facility] (Normal over 40) Normal [facility] DIG SCREEN CAD BILon Bilirubin (direct) * * *Final Report* * *DATE OF EXAM: Dec 02 2016 1:16PM WOW 6361 - [facility] DIG SCREEN CAD ELIZABETH / REASON: routine * * * * Physician Interpretation * * * *RESULT: #[id number] - [facility] DIG SCREEN CAD BILBILATERAL DIGITAL SCREENING MAMMOGRAM WITH CAD: 12/02/2016HISTORY: /Screening Mammogram - patient reports NO breast symptoms /Priors available for comparison.RESULT:TECHN IQUE: The study was acquired using full field digital technology and interpreted from soft copy.Current study was also evaluated with a Computer Aided Detection (CAD).Comparison is made to exams dated: 12/16/2014 mammogram, 12/10/2012 mammogram, and 09/19/2011 mammogram - [facility].There are scattered fibroglandular elements in both breasts.No significant masses, calcifications, or other findings are seen in either breast.There has been no significant interval change.IMPRESSION: NEGATIVEThere is no mammographic evidence of malignancy.A 1 year screening mammogram is recommended. The exam was reviewed by a staff physician.Lalo Martinez M.D.jr,bb/penrad:12/03/19 17 14:38:25Imaging Technologist: Britta Caal RT(Rissa)(Chas), [facility]: Normal over 40Mammogram BI-RADS: 1 NegativeTranscriptionis t: PenradTranscribe Date/Time: Dec 02 2016 1:02PDictated by: KRIS MARTINEZ MDThis examination was interpreted and the report reviewed and electronically signed by: LALO ASHFORD MD on Dec 02 2016 2:38PM EST Normal [facility] PROGRESSon 12-02-2016 PROGRESS HNO ID: [id number]: Britta Caal RtService: (none)Author Type: (none)Type: Progress NotesFiled: 12/02/2016 1:34 PMNote Text: Radiology Service Progress NotePATIENT NAME: Allyn StephensMRN: [id number] OF SERVICE: December 02, 2016TIME: 1:34 PMPATIENT IDENTITY VERIFICATION COMPLETED USING TWO (2) METHODS: Patientconfirmed name verbally and Date of .PATIENT GENDER DATA: Female. status: : NoBreastfeeding status: NO.PATIENT RELEVANT IMPLANT DATA REVIEWED: Not ApplicableRADIOLOGY DEPARTMENT: [facility] screeningPERIPHERAL IV DATA: Not applicableSIGNED BY: Britta Caal RtAugust 2016 1:34 PM Normal [facility] Vital Signs Date Time Vital Sign Value Performing Clinician Facility 10-27-2024 15:33-0400 Body height 172.[address] Kana Hernandez MD Work Phone: [facility] 10-27-2024 15:33-0400 Body mass index (BMI) [Ratio] 30.2 kg/m2 Dr. Kana Hernandez MD Work Phone: [facility] 10-27-2024 15:33-0400 Body weight 90.[address] Kana Hernandez MD Work Phone: [facility] 10-27-2024 15:33-0400 Diastolic blood pressure 72 mm[Hg] Dr. Kana Hernandez MD Work Phone: [facility] 10-27-2024 15:33-0400 Heart rate 81 /min Dr. Kana Hernandez MD Work Phone: [facility] 10-27-2024 15:33-0400 Respiratory rate 16 /min Dr. Kana Hernandez MD Work Phone: [facility] 10-27-2024 15:33-0400 Systolic blood pressure 130 mm[Hg] Dr. Kana Hernandez MD Work Phone: [facility] 10-21-2024 15:28-0400 Body height 172.7 cm Isabell Leo DO Work Phone: [facility] 10-21-2024 15:28-0400 Body mass index (BMI) [Ratio] 30.32 kg/m2 Isabell Borisuk DO Work Phone: [facility] 10-21-2024 15:28-0400 Body temperature 97.81 [degF] Isabell Borisuk DO Work Phone: [facility] 10-21-2024 15:28-0400 Body weight 90.45 kg Isabell Borisuk DO Work Phone: [facility] 10-21-2024 15:28-0400 Diastolic blood pressure 86 mm[Hg] Isabell Borisuk DO Work Phone: [facility] 10-21-2024 15:28-0400 Heart rate 82 /min Isabell Leo DO Work Phone: [facility] 10-21-2024 15:28-0400 Respiratory rate 17 /min Isabell Leo DO Work Phone: [facility] 10-21-2024 15:28-0400 SaO2% (BldA) [Mass fraction] 98 % Isabell Leo DO Work Phone: [facility] 10-21-2024 15:28-0400 Systolic blood pressure 130 mm[Hg] Isabell eLo DO Work Phone: [facility] Encounters Encounter Date Encounter Type Care Provider Facility Start: 11-12-2024 End: 11-12-[address] Kana Hernandez MD Work Phone: -[facility] Start: 11-12-2024 End: 11-12-[address] Kana Hernandez MD Work Phone: -[facility] Work Phone: Start: 11-12-2024 End: 11-12-[address] Facility:[facility] Start: 11-06-2024 End: 11-06-[address] Kana Hernandez MD Work Phone: -Cardiovascular Services Start: 11-06-2024 End: 11-06-[address] Jet Melchor MD -Cardiovascular Services Work Phone: Start: 11-05-2024 End: 11-06-[address] Facility:[facility] Start: 11-05-2024 Non-patient / Non-visit Dr. Francisco TELLO -[facility] Start: 10-27-2024 End: 10-27-[address] Jet Melchor MD -[facility] Work Phone: Start: 10-27-2024 End: 10-27-[address] Kana Hernandez MD Work Phone: -[facility] Start: 10-27-2024 End: 10-27-2024 ambulatory Out of Town Doctor Facility:[facility] Start: 10-21-2024 End: 10-21-2024 Office outpatient new 45 minutes Isabell Leo DO Work Phone: [facility] Comment on above: Paroxysmal atrial fi brillation (Multi) (Primary Dx); Acquired hypothyroidism; Primary hypertension; Snoring; Class 1 obesity due to excess calories without serious comorbidity with body mass index (BMI) of 30.0 to 30.9 in adult; Anxiety Start: 10-21-2024 End: 10-21-2024 ambulatory ISABELL LEO [facility] Ambulatory Start: 09-25-2024 End: 09-25-2024 Emergency department patient visit NONE PHYSICIAN Facility:[facility] Start: 05-22-2024 End: 05-22-2024 ambulatory JUL[facility]EN FRAZIER [facility] Start: 12-02-2016 End: 12-02-2016 Ambulatory [facility] Plan of Treatment Date Care Activity Detail Author Start: 2035 RSV High Risk: (Elde rly (60+) or Population) (1 - 1-dose 75+ series) RSV High Risk: (Elderly (60+) or Population) (1 - 1-dose 75+ series) [facility] Start: 06-03-2025 End: 06-03-2025 Patient encounter procedure 06/03/2025 2:40 PM EST Office Visit [facility] Primary [facility] [address] [place] [address] [place] [address] [place] [address] [facility] Start: 12-27-2024 Influenza vaccination Influenz a Vaccine (Season Ended) [facility] Start: 11-25-2024 End: 12-21-2024 Drug Screen 9 Panel, Blood with Reflex to Confirmation Drug Screen 9 Panel, Blood with Reflex to Confirmation Lab Routine Anxiety Expected: 11/25/2024 (Approximate), Expires: 12/21/2024 [facility] Work Phone: Comment on above: Expected: 11/25/2024 (Approximate), Expires: 12/21/2024 Start: 11-25-2024 End: 10-21-2025 TSH with reflex to Free T4 if abnormal TSH with reflex to Free T4 if abnormal Lab Routine Acquired hypothyroidism Expected: 11/25/2024 (Approximate), Expires: 10/21/2025 [facility] Work Phone: Comment on above: Expected: 11/25/2024 (Approximate), Expires: 10/21/2025 Start: 10-27-2024 Evaluation of diagnostic study results [facility] Start: 10-21-2024 End: 10-21-2025 In-Center Sleep Study In-Center Sleep Study Sleep Center Routine Snoring Expected: 10/21/2024 (Approximate), Expires: 10/21/2025 [facility] Service Area Work Phone: Comment on above: Expected: 10/21/2024 (Approximate), Expires: 10/21/2025 Start: 12-28-2023 COVID-19 Vaccine ( season) COVID-19 Vaccine ( season) [facility] Start: 2010 Pneumococcal vaccination Pneumococcal Vaccine (1 of 1 - PCV) [facility] Start: 2010 Zoster Vaccines (1 o f 2) Zoster Vaccines (1 of 2) [facility] Start: 2000 Screening for malign ant neoplasm of breast Mammogram [facility] Start: 1982 DTaP/Tdap/Td Vaccine s (1 - Tdap) DTaP/Tdap/Td Vaccines (1 - Tdap) [facility] Start: 1981 Screening for malign ant neoplasm of cervix [facility] Start: 1978 Diabetes mellitus screening Diabetes Screening [facility] Start: 1978 Hepatitis C screening Hepatitis C Sc [facility] Start: 1961 MMR Vaccines (1 of 1 - Standard series) MMR Vaccines (1 of 1 - Standard series) [facility] Start: 1960 HIV screening HIV Screening [facility] Start: 1960 Lipid panel Lipid Panel [facility] Start: 1960 Screening for malign ant neoplasm of colon [facility] Start: 1960 Thyroid stimulating hormone measurement TSH Level [facility] Start: 1960 Yearly Adult Physical Yearly Adult P hysical [facility] [place] [facility] Payers Date Payer Category Payer Self-pay 2024 [employer] Man[employer] Care [facility] [id number] 2024 Unknown [id number] 1960 Unknown [id number] 1960 Unknown [id number] 1960 Unknown [id number] Unknown [id number] Unknown [id number] Unknown [id number] Unknown [id number] Unknown [id number] [id number] Social History Date Type Detail Facility [facility]: [facility]24 [facility] Start: 04-28-1979 End: 04-28-1987 History of tobacco use Current smoker [facility] Work Phone: Start: 04-28-1979 End: 04-28-1987 History of tobacco use Cigarette Smoker [facility] Work Phone: Start: 10-21-2024 Cigarettes smoked current (pack per day) - Reported 0.3 [facility] Work Phone: Start: 10-21-2024 Tobacco use and exposure Smokeless tobacco non-user [facility] Work Phone: Start: 10-21-2024 Alcoholic beverage intake Ex-drinker (finding) [facility] Work Phone: Start: 10-21-2024 Tobacco use panel [facility] Work Phone: Start: 10-21-2024 Alcohol Comment very rare occasion [facility] Work Phone: Start: 1960 Sex assigned at Not on file [facility] Work Phone: Start: 01-02-2021 [facility] Start: 03-25-2019 [facility] Start: 1960 Sex Assigned At Female W [facility] Goals Date Patient Goal Desired Activity /State Functional Status Date Assessment Result Facility 10-21-2024 Patient Health [facility] ionnaire 2 item (PHQ-2) [Reported] [facility] Work Phone: Evaluation note 10-27-2024 Note Date & Type Note Facility 10-27-2024 Evaluation note Diagnosis Onset Date Resolution Afib acute October 27, 2024 3:31pm [facility] Work Phone: History of Present illness Narrative 10-21-2024 Isabell Leo DO - 10/21/2024 4:00 PM EDT Note Date & Type Note Facility 10-21-2024 History of Present illness Narrative Subjective Allyn Stephens is a 64 y.o. female Patient presents to [facility]. She was referred by Dr. Ehsan Saunders. [...] still aches. Yesterday she went to the telemetry monitor. She is going back to them again in October. She takes a IAG supplement for lymphatic drainage. She bounces on a ball for lymphatic drainage. She follows with a lead applier. Her highest weight was 253 pounds. She [...] She is interested in seeing a functional psychological stress evaluator to have a full thyroid workup and discuss other possible natural treatments for the thyroid. I provided her with an integrative medicine referral through . Also gave her names of clinics I found for functional medicine closer to where she lives, including [facility] in [place], and [facility] in [place]. 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 Family Medicine Physician [facility] [id number] [place] [address] This note has been transcribed using [employer] voice recognition system and there is a [...] prior to visit. documented in this encounter [facility] Work Phone: Instructions 06-26-2025 Patient Instructions Note Date & Type Note Facility 10-21-2024 Instructions Isabell Leo DO - 10/21/2024 4:00 PM EDT in lab sleep study locations: [facility] - or other non- one closer to home TSH 11/25 at lab in [place] Integrative medicine referral through in the system [facility] [address] [place] [address] Email: [email or web address] [facility] Holistic medicine practitioner in [place], [place] Address: [address] [place] [id number] documented in this encounter [facility] Work Phone: Evaluation note Note Date [...] Anxiety state, unspecified documented in this encounter [facility] Work Phone: Evaluation note Note Date & Type Note Facility Evaluation note No assessment information availa princess [facility] Work Phone: Reason for referral (narrative) Note Date & Type Note Facility Reason for referral (narrative) No reason for referral information available [facility] Work Phone: Summary Purpose Family History [...] for Visit Chief Complaint Admit Date 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, 2024 3:31p m Chief Complaint Admit Date 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, 2024 3:31p m INT LAB ORDERS October 27, 2024 4:26p m Reason for Visit Admit Date Afib October 27, 2024 3:31p m Chief Complaint Admit Date 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, 2024 3:31p m INT LAB ORDERS October 27, 2024 4:26p m atrial fib-flutter November 06, 2024 8:30 am SNORING November 12, 2024 10:1 1am Additional Source Comments INFORMATION SOURCE (unrecogn ized section and content) DATE CREATED AUTHOR 10/22/2017 [facility] DATE CREATED AUTHOR AUTHOR'S ORGANIZ ATION 05/15/2022 [facility] ([place]) DATE CREATED AUTHOR AUTHOR'S ORGANIZ ATION 05/23/2024 [facility] DATE CREATED AUTHOR AUTHOR'S ORGANIZ ATION 09/30/2024 [facility] DATE CREATED AUTHOR AUTHOR'S ORGANIZ ATION 11/14/2024 [facility] DATE CREATED AUTHOR AUTHOR'S ORGANIZ ATION 11/17/2024 [facility] DATE CREATED AUTHOR AUTHOR'S ORGANIZ ATION 11/20/2024 [facility] Reason for Visit (unrecogniz ed section and content) Reason Comments New Patient Visit Thyroid check Care Teams (unrecognized sec tion and content) Stoper Relationship Specialty Start Date End Date Isabell Leo [id number] [facility] [place] [address] PCP - General Family Medicine 09/06/24 Team Status: Active Member Role/Relationship Status Dates Out of Town Doctor Primary Care Provider Active Team Status: Inactive Member Role/Relationship Status Dates Dr. Kana Hernandez MD Referring Provider Active St art: October 27, 2024 End: October 27, 2024 Dr. Jet Melchor MD Attending Provider Active S tart: October 27, 2024 End: October 27, 2024 Out of [facility] Doctor Primary Care Provider Active Start: October 27, 2024 End: October 27, 2024 Team Status: Inactive Member Role/Relationship Status Dates Out of [facility] Doctor Primary Care Provider Active Start: October [...] Status: Inactive Member Role/Relationship Status Dates Dr. Jet Melchor [...] Provider Active Star t: November 12, 2024 Team Status: Inactive Member Role/Relationship Status Dates LEATHA WHYTE Primary Care Provider Active S tart: November 12, 2024 End: November 12, 2024 LEATHA WHYTE Attending Provider Active Star t: November 12, 2024 End: November 12, 2024 LEATHA WHYTE Referring Provider Active Star t: November 12, 2024 End: November 12, 2024 FOR RECORDS PERTAINING TO [...] BE BASED ON THE PRIMARY CLINICAL RECORDS. [employer] provides no warranty or guarantee of the accuracy or completeness of information in this document.
== END | disposition home or self-care (01) ==
PROVIDERS: Referring Provider Internal Medicine Cardiovascular Disease; Visit Provider Internal Medicine Cardiovascular Disease
DX: I77.810 Thoracic aortic ectasia (principal)
CPT/HCPCS: 71260; Q9967

== ENCOUNTER → 2025-01-28 | Outpatient (CLI) | payer BC, SELFPAY ==
--- OUTSIDE RECORDS SUMMARY | 2025-01-28 19:36 | XMS RPT_ITS | CCD ---
Author Organization [facility] Care Team Providers Care Finance And Administration Manager Name Role Phone UNGERER, JULIEN PIPE THREADER Attending Unavailable UNGERER, JULIEN PIPE THREADER Consulting Unavailable UNGERER, JULIEN PIPE THREADER Primary Care Unavailable UNGERER, JULIEN PIPE THREADER Admitting Unavailable PROVIDER, UNKNOWN Consulting Unavailable PHYSICIAN, NONE Primary Care Unavailable DR FRANCISCO CRUZ DO Attending Unavailable Borisuk DO, Isabell A Primary Care Provider David TELLO, Dr. Roger Referring Provider Dr. Jet Melchor MD Attending Provider [facility] Doctor, Out Primary Care Provider Ladan Melchor MD, Dr. Chaudhary Referring Provider BORISUK, ISABELL Primary Care Provider BORISUK, ISABELL Primary Care Provider [phone] BORISUK, ISABELL Attending Provider [phone] BORISUK, ISABELL Referring Provider [phone] BORISUK, ISABELL A Attending Unavailable BORISUK, ISABELL A Primary Care Unavailable BORISUK, ISABELL A Attending Unavailable BORISUK, ISABELL A Primary Care Unavailable Jill, Charlotte Attending Unavailable Jill, Jet Referring Unavailable Angermeier, Max Primary Care Unavailable Angermeier, Max Primary Care Unavailable Angermeier, Max Attending Unavailable Angermeier, Max Referring Unavailable Jill, Charlotte Referring Unavailable Jill, Jet Attending Unavailable Angermeier, Max Primary Care Unavailable Angermeier, Max Primary Care Unavailable Angermeier, Max Attending Unavailable Angermeier, Max Referring Unavailable Jill, Charlotte Attending Unavailable Jill, Jet Attending Unavailable [facility] Doctor, Out of Primary Care Unavailable Kana Hernandez Referring Unavailable Jet Melchor Attending Unavailable Jet Melchor Referring Unavailable [facility] Doctor, Out of Primary Care Unavailable Allergies Allergy Classification Reported Allergen(s) Allergy Type Date of Onset Reaction(s) Facility (8 sources) Amoxicillin; Translations: [AMOXICILLIN] Drug Allergy 01-02-2021 Diarrhea [facility] (5 sources) Clavulanate Drug Allergy 01-02-2021 Diarrhea [facility] (1 source) Amoxicillin Drug Allergy 01-02-2021 [facility] Repository (1 source) Clavulanate Drug Allergy 01-02-2021 [facility] Repository Medications Current Medications Medication Drug Class(es) Dates Sig (Normalized) Sig (Original) ascorbic acid 100 mg chewable tablet (5 sources) Vitamin C Start: 10-20-2020 take 1 tablet by mouth once daily Ascorbic Acid (Vitamin C) 100 mg tablet,chewable Active 100 mg PO DAILY October 20, 2020 12:00am cholecalciferol 0.125 mg oral capsule (5 sources) Vitamin D Start: 10-20-2020 take 1 capsule by mouth once daily Cholecalciferol (Vitamin D3) 125 mcg (5,000 unit) capsule Active 5000 U PO DAILY October 20, 2020 12:00am levothyroxine sodium 0.088 mg oral tablet (13 sources) l-Thyroxine Start: 12-14-2024 End: 12-14-2025 take 1 tablet by mouth once daily in the morning levothyroxine (Synthroid, Levoxyl) 88 mcg tablet Indications: Acquired hypothyroidism Take 1 tablet (88 mcg) by mouth early in the morning.. Take on an empty stomach at the same time each day, either 30 to 60 minutes prior to breakfast 90 tablet 3 12/14/2024 12/14/2025 Active Start: 09-03-2024 End: 12-14-2024 take 1 tablet by mouth once daily in the morning Levothyroxine 100 mcg tablet Active 100 ug PO EVERY MORNING October 27, 2024 12:00am Start: 04-08-2013 End: 10-27-2024 take 1 tablet by mouth once daily Levothyroxine 150 MCG tablet Discontinued 150 ug PO DAILY April 08, 2013 1:00am October 27, 2024 3:41pm lisinopril 10 mg oral tablet (13 sources) Angiotensin Converting Enzyme Inhibitor Start: 12-14-2024 take 1 tablet by mouth in the morning lisinopril 10 mg tablet Indications: Primary hypertension Take 1 tablet (10 mg) by mouth early in the morning.. 90 tablet 3 12/14/2024 Active Start: 11-14-2023 End: 12-14-2024 take 1 tablet by mouth once daily Lisinopril 10 mg tablet Active 10 mg PO daily October 27, 2024 12:00am Start: 04-19-2019 End: 10-27-2024 take 1 tablet by mouth once daily Lisinopril 20 mg tablet Discontinued 20 mg PO DAILY April 19, 2019 1:00am October 27, 2024 3:41pm LORazepam 1 mg oral tablet (12 sources) Benzodiazepine Start: 11-25-2024 take 1 tablet by mouth every twenty-four hours as needed for anxiety and anxiety LORazepam (Ativan) 1 mg tablet Indications: Anxiety Take 1 tablet (1 mg) by mouth once daily as needed for anxiety. 30 tablet 2 11/25/2024 Active Start: 09-27-2024 LORazepam (Ati van) 1 mg [...] daily metoprolol tartrate (Lopressor) 25 mg tablet Indications: Paroxysmal atrial fibrillation (Multi) Take 0.5 tablets (12.5 mg) by mouth 2 times a day. 90 tablet 3 10/22/2024 Active Start: 10-25-2020 End: 10-26-2024 take 1 tablet [...] 08, 2013 1:00am April 19, 2019 9:57am [place]-3 Fatty Acids 1,000 mg capsule (5 sources) Start: 04-19-2019 take 1 capsule by mouth once daily [place]-3 Fatty Acids 1,000 mg capsule Active 1000 mg PO DAILY April 19, 2019 1:00am ubidecarenone 100 mg oral capsule (10 sources) Start: 10-20-2020 Coenzyme Q10 ( Co Q-10) 100 mg capsule Active 100 mg PO DAILY October 20, 2020 12:00am Start: 04-19-2019 End: 10-20-2020 Coenzyme Q10 (Ultra Coq10) 7 5 mg capsule Discontinued 75 mg PO DAILY April 19, 2019 1:00am October 20, 2020 3:14pm Vitamin B Complex capsule (5 sources) Start: 10-20-2020 Vitamin B Comp dagoberto capsule Active 1 NMA PO DAILY October 20, 2020 12:00am Completed/Discontinued Medications Medication Drug Class(es) Dates Sig (Normalized) Sig (Original) acetaminophen 325 mg / HYDROcodone bitartrate 5 mg oral tablet (5 sources) Opioid Agonist Start: 11-14-2020 End: 01-02-2021 Hydrocodone-Acetam inophen 5-325 mg tablet Discontinued 1 {tbl} PO EVERY 6 HOURS as needed for pain 10 3 0 November 14, 2020 January 02, 2021 9:48am Calculus of ureter Calculus of ureter aspirin 81 mg chewable tablet (5 sources) Platelet Aggregation Inhibitor, Nonsteroidal Anti-inflammatory Drug Start: 04-08-2013 End: 02-08-2019 take 1 tablet by mouth once daily Aspirin 81 MG tablet,chewable Discontinued 81 mg PO DAILY@0800 April 08, 2013 1:00am February 08, 2019 8:10am enalapril maleate 10 mg oral tablet (5 sources) Angiotensin Converting Enzyme Inhibitor Start: 04-08-2013 End: 04-19-2019 take 1 tablet by mouth twice daily Enalapril Maleate 10 MG tablet Discontinued 10 mg PO TWICE A DAY April 08, 2013 1:00am April 19, 2019 9:57am hydrOXYzine hydrochloride 50 mg oral tablet (10 sources) Antihistamine Start: 10-20-2020 End: 10-25-2020 take [...] 9:56am ketorolac tromethamine 10 mg oral tablet (5 sources) Nonsteroidal Anti-inflammatory Drug, Cyclooxygenase Inhibitor Start: 11-14-2020 End: 01-02-2021 take 1 tablet by mouth every six hours as needed for pain Ketorolac 10 mg tablet Discontinued 10 mg PO EVERY 6 HOURS as needed for pain 12 3 0 November 14, 2020 12:00am January 02, 2021 9:48am linseed oil 1000 mg oral capsule (5 sources) Start: 10-20-2020 End: 10-27-2024 take 1 capsule by mouth once daily Flaxseed Oil 1,000 mg capsule Discontinued 1000 mg PO DAILY October 20, 2020 12:00am October 27, 2024 3:42pm administer with a meal Multivitamin With Folic Acid 1 TABLET tablet (5 sources) Start: 04-08-2013 End: 10-20-2020 take 1 tablet by mouth once daily Multivitamin With Folic Acid 1 TABLET tablet Discontinued 1 {tbl} PO DAILY April 08, 2013 1:00am October 20, 2020 3:16pm ondansetron 4 mg disintegrating oral tablet (5 sources) Serotonin-3 Receptor Antagonist Start: 11-14-2020 End: 01-02-2021 take 1 tablet by mouth every eight hours as needed for nausea and vomiting Ondansetron 4 mg tablet,disintegr ating Discontinued 4 mg PO Q8H as needed for nausea and vomiting 10 0 November 14, 2020 12:00am January 02, 2021 9:48am PARoxetine hydrochloride 10 mg oral tablet (5 sources) Serotonin Reuptake Inhibitor Start: 04-08-2013 End: 02-08-2019 take 1 tablet by mouth every other day Paroxetine Hcl 10 MG tablet Discontinued 10 mg PO EVERY OTHER DAY April 08, 2013 1:00am February 08, 2019 8:10am Problems Active Problems Problem Classification Problem Date Documented Da te Episodic/Chronic Anxiety disorders (16 sources) Anxiety; Translations: [Anxiety disorder, unspecified] Onset: 10-21-2024 10-21-2024 Chronic Aortic; peripheral; and visceral artery aneurysms (4 sources) Aortic root dilatation; Translations: [Thoracic aortic ectasia] Onset: 12-06-2024 11-10-2024 Chronic Comment on above: 4.6 cm per echo 10/27 025; Calculus of urinary tract (5 sources) Ureteric stone; Translations: [Calculus of ureter] 10-26-2024 Episodic Cardiac dysrhythmias (15 sources) Paroxysmal atrial fibrillation; Translations: [Paroxysmal atrial fibrillation] Onset: 10-21-2024 10-21-2024 Chronic Essential hypertension (13 sources) Essential (primary) hypertension; Translations: [Essential hypertension] Onset: 05-22-2024 10-21-2024 Chronic Other acquired deformities (5 sources) Scoliosis of lumbar spine; Translations: [Scoliosis, unspecified] 10-26-2024 Chronic Other bone disease and musculoskeletal deformities (20 sources) Segmental and somatic dysfunction; Translations: [Segmental and somatic dysfunction of cervical region] 09-26-2020 Episodic Other lower respiratory disease (6 sources) Snoring; Translations: [Snoring] Onset: 10-24-2024 10-21-2024 Episodic Other lower respiratory disease (2 sources) Apnea; Translations: [Apnea, not elsewhere classified] 12-14-2024 Episodic Other lower respiratory disease (2 sources) Apnea, not elsewhere classified; Translations: [Apnea, not elsewhere classified] Onset: 12-14-2024 Episodic Other lower respiratory disease (2 sources) Snoring; Translations: [Snoring] Onset: 10-24-2024 Episodic Other nutritional; endocrine; and metabolic disorders (2 sources) Obesity caused by energy imbalance; Translations: [Class 1 obesity due to excess calories without serious comorbidity with body mass index (BMI) of 30.0 to 30.9 in adult] Onset: 10-21-2024 10-21-2024 Chronic Other nutritional; endocrine; and metabolic disorders (5 sources) Obesity; Translations: [Obesity, unspecified] 10-26-2024 Chronic [...] metabolic disorders (2 sources) Body mass index 25-29 - overweight; Translations: [Overweight] Onset: 10-21-2024 12-14-2024 Episodic Other nutritional; endocrine; and metabolic disorders (2 sources) Overweight; Translations: [Overweight] Onset: 12-14-2024 Episodic Other screening for suspected conditions (not mental disorders or infectious disease) (1 source) Encounter for screening for lipoid disorders; Translations: [Encounter for screening for lipoid disorders] Onset: 05-22-2024 Episodic Residual codes; unclassified (5 sources) Hereditary disorder of endocrine system; Translations: [Genetic susceptibility to other disease] 10-26-2024 Episodic Spondylosis; intervertebral disc disorders; other back problems (5 sources) Degeneration of cervical intervertebral disc; Translations: [Other cervical disc degeneration, unspecified cervical region] 10-26-2024 Chronic Thyroid disorders (14 sources) Hypothyroidism, unspecified; Translations: [Acquired hypothyroidism] Onset: 05-22-2024 10-21-2024 Chronic Unclassified (1 source) Unknown / UNK(Unknown) Onset: 12-02-2016 Unclassified (1 source) Obesity, class 1; Translations: [Obesity, class 1] Onset: 10-21-2024 Past or Other Problems Problem Classification Problem Date Documented Da te Episodic/Chronic Cardiac dysrhythmias (14 sources) Tachycardia, unspecified; Translations: [Palpitations] Onset: 09-25-2024 10-26-2024 Episodic Unclassified (1 source) Obesity, class 1; Translations: [Obesity, class 1] Onset: 10-21-2024 Results Test Name Value Interpretation Reference Range Facility Chest WITH Contraston 2024 Chest WITH Contrast [facility] Services [address] [place] [id number] Chest WITH Contrast MR#: [id number] Acct: [id number] Name: ALLYN STEPHENS SHERRI Rep #: [id number] : 1960 F 64 From: Moises rodas MD PCP: ISABELL LEO Status: REG CLI Study: Chest WITH Contrast Date of Exam: 11/26/24 Exam# [id number] Ordering Dr: Jet Melchor MD PROCEDURE: CHEST WITH CONTRAST 11/26/2024 REASON FOR EXAM: DILATED AORTIC ROOT TECHNIQUE: CHEST WITH CONTRAST Coronal and Sagittal reconstruction series were provided. CONTRAST: Isovue 3 7 VOLUME: 95 mL One or more dose reduction techniques were used (e.g., Automated exposure control, adjustment of the mA and/or kV according to patient size, use of iterative reconstruction technique). RADIATION DOSE SUMMARY: CTDlvol: 11.75 mGy DLP: 362.84 mGycm COMPARISON: None FINDINGS: Hardware: None Lymph nodes: Small benign-appearing bilateral axillary lymph nodes. Heart and Vasculature: There is dilatation of the root of the ascending thoracic aorta with a transverse dimension of 44.3 mm. No significant coronary artery calcification is seen. The heart is not enlarged. Lungs and Airways: The lungs are clear. Pleura: No pleural effusion. Upper Abdomen: Fatty infiltration of the liver. Bones: Degenerative changes of the thoracic spine. CT/Chest WITH Contrast IMPRESSION: Coronary artery calcification (CAC) is is absent Dilatation of the root of the ascending thoracic aorta with a transverse dimension of 44.3 mm. Reading Location: [id number] CC: Dr. Jet Melchor MD; ISABELL LEO Heart Specialist: Signed Normal [facility] DRUG ABUSE SCREEN 7,SERUMon 11-13-2024 AMPHETAMINE SCREEN, SERUM Negative Normal [facility] Comment on above: Performed By: #### 1 [id number] #### [facility]/[address] [place], [place] Verifier: Stoney Colin M.D.,PhD #### [id number] #### [facility] of [address], [address] [place] [address] Verifier: Kieran Murphy MD BARBITURATES Negative Normal [facility] Comment on above: Performed By: #### 1 [id number] #### [facility]/[address] [place], [place] Verifier: Stoney Colin M.D.,PhD #### [id number] #### [facility] of [address], [address] [place], [place] [id number] Verifier: Kieran Murphy MD Benzodiazepines Ql (U) Negative Normal [facility] Comment on above: Performed By: #### 1 [id number] #### [facility]/[address] [place], [place] Verifier: Stoney Colin M.D.,PhD #### [id number] #### [facility] [address], [address] [place], [place] [id number] Verifier: Kieran Murphy MD COCAINE METABOLITES Negative Normal [facility] Comment on above: Performed By: #### 1 [id number] #### [facility] [address] [facility] [place], [place] Verifier: Stoney Colin M.D.,PhD #### [id number] #### [facility] [address], [address] [place] [id number] Verifier: Kieran Murphy MD COMMENT SEE NOTE Normal [...] Amphetamines 100 Amphetamine 50 Methamphetamine 50 MDMA ("Ecstacy") 50 MDA 50 Barbiturates 100 Amobarbital 100 [...] analytical performance characteristics have been determined by [employer] [place], [place]. It has not been cleared or approved by the FDA. This assay has been validated pursuant to the CLIA regulations and is used for clinical purposes. Performed By: #### 1 [id number] #### [facility] [address] [facility] [place], [place] Verifier: Stoney Colin M.D.,PhD #### [id number] #### [facility] [address], [address] [place], [place] [id number] Verifier: Kieran Murphy MD MARIJUANA Negative Normal [facility] Comment on above: Performed By: #### 1 [id number] #### [facility] [address] [facility] [place], [place] Verifier: Stoney Colin M.D.,PhD #### [id number] #### [facility] of [address], [address] [place] [address] Verifier: Kieran Murphy MD Opiates Ql (U) Negative Normal [facility] Comment on above: Performed By: #### 1 [id number] #### [facility]/[address] [place], [place] Verifier: Stoney Colin M.D.,PhD #### [id number] #### [facility] of [address], [address] [place] [address] Verifier: Kieran Murphy MD PCP (PHENCYCLIDINE) Negative Normal [facility] Comment on above: Performed By: #### 1 [id number] #### [facility]/[address] [place], [place] Verifier: Stoney Colin M.D.,PhD #### [id number] #### [facility] of [address], [address] [place], [place] [id number] Verifier: Kieran Murphy MD TSH W/REFLEX TO FT4on 2024 TSH W/REFLEX TO FT4 1.04 mIU/L Normal 0.40-4.50 [facility] Comment on above: Performed By: #### 1 [id number] #### [facility]/[address] [place], [place] Verifier: Stoney Colin M.D.,PhD #### [id number] #### [facility] of [address], [address] [place], [place] [id number] Verifier: Kieran Murphy MD Echocardiogram study reportO rdered By: Jet Melchor on 11-07-2024 Study report [facility] [address] [place], [place] [address]ev[place] [address] Echo Complete 11/05/242048 MR#: [id number] Acct: [id number] Name: ALLYN STEHPENS Rep #:[id number] : 1960 64 From: Jet Jarvis Attending Dr: MD Ziggy Madrid tatus: YVETTE BENTONI Ordering Dr: Jet Melchor MD Date: 04/21 Location: [facility] Sex: F C Admitted: Reason For [...] By: Mimi Mitchell, PRAVEEN, RVT 11/07/241640 Date _ Jet Melchor MD CC: Dr. Jet Melchor MD; ISABELL AHMET Date Dictated: 11/05/242048 Date Transcribed: 11/07/241640 Heart Specialist: Signed [facility] Work Phone: Echo Completeon 11-06-2024 Echo Complete [facility] [address] [place] [address] Echo Complete 11/05/242048 MR#: [id number] Acct: [id number] Name: ALLYN STEPHENS SHERRI Rep #: [id number] : 1960 64 From: Jet Melchor MD Attending Dr: Dr. Jet Melchor MD Status: YVETTE HOPE Ordering Dr: Jet Melchor MD Date: 11/06/24 Location: [facility] Sex: F C Admitted: Reason For Study [...] Mimi Mitchell, PRAVEEN, RVT 11/07/24 1641 Date Jet Melchor MD CC: Dr. Jet Melchor MD; ISABELL LEO Date Dictated: 11/05/242048 Date Transcribed: 11/07/241640 Heart Specialist: Signed Normal [facility] Cardiology Visit Reporton Cardiology Visit Report [facility] [address] [place] [address] OFFICE VISIT Date of Service: 10/27/24 MR#: [id number] Acct: [id number] Name: ALLYN STEPHENS Rep #: [id number] : 1960 Provider: Dr. Jet Melchor MD Age/Sex: 64/F Location[place] [facility] [place] Status: Signed HPI HPI History of Present Illness Details: Pleasant 64-year-old lady with a previous history of palpitations who presents for evaluation of atrial fibrillation. 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 Normal [facility] Free T3on 10-27-2024 Free T3 [Mass/Vol] 2.3 pg/mL Normal 2.18-3.98 [facility] Comment on above: Performed By: #### L 501.22542, L501.9520, L501.9310 #### [facility] Laboratory [address] [place], [place], [id number] Free [id number] By: Jet johnson on 10-27-2024 Free T3 [Mass/Vol] 2.3 pg/mL 2.18-3.98 [facility] T4 Total, Thyroxinon T4 [Mass/Vol] 9.9 ug/dL Normal 4.8-13.9 [facility] Comment on above: Performed By: #### L 501.15983, L501.9520, L501.9310 #### [facility] [address] [place], [address] TSH DL <= 0.005 mIU/L QnOrde red By: Jet Melchor on 10-27-2024 TSH Qn 2.960 uIU/mL 0.300-4.200 [facility] Thyroid Stim Hormone (TSH)on 10-27-2024 TSH 2.960 uIU/mL Normal 0.300-4.200 [facility] Comment on above: Performed By: #### L 501.52424, L501.9520, L501.9310 #### [facility] [address] [place], [place], [id number] ThyroxineOrdered By: Jet nowak on 10-27-2024 T4 [Mass/Vol] 9.9 ug/dL 4.8-13.9 [facility] .Auto Diffon 09-25-2024 Basophil, Absolute 0.1 10 3/mcL Normal 0.0-0.3 [facility] Comment on above: Performed By: #### A KAMRON, TROPHS, GFR, BMP, MDW, MG, CBC, ADIFF, PBNP #### [address] [address] Basophils/100 WBC (Bld) 0.8 % Normal 0.0-2.[address] [facility] Comment on above: Performed By: #### A KAMRON, TROPHS, GFR, BMP, MDW, MG, CBC, ADIFF, PBNP #### [address] [address] Eosinophil, Absolute 0.2 10 3/mcL Normal 0.0-0.7 [facility] Comment on above: Performed By: #### A KAMRON, TROPHS, GFR, BMP, MDW, MG, CBC, ADIFF, PBNP #### [address] [address] Eosinophils/100 WBC (Bld) 2.0 % Normal 0.0-6.[address] [facility] Comment on above: Performed By: #### A KAMRON, TROPHS, GFR, BMP, MDW, MG, CBC, ADIFF, PBNP #### [address] [address] Lymphocyte, Absolute 2.6 10 3/mcL Normal 0.9-4.3 [facility] Comment on above: Performed By: #### A KAMRON, TROPHS, GFR, BMP, MDW, MG, CBC, ADIFF, PBNP #### [address] [address] Lymphocytes/100 WBC (Bld) 31.0 % Normal 20.0-40.[address] [facility] Comment on above: Performed By: #### A KAMRON, TROPHS, GFR, BMP, MDW, MG, CBC, ADIFF, PBNP #### [address] [address] Monocyte, Absolute 0.5 10 3/mcL Normal 0.1-1.4 [facility] Comment on above: Performed By: #### A KAMRON, TROPHS, GFR, BMP, MDW, MG, CBC, ADIFF, PBNP #### [address] [address] Monocytes/100 WBC (Bld) 5.8 % Normal 2.0-13.[address] [facility] Comment on above: Performed By: #### A KAMRON, TROPHS, GFR, BMP, MDW, MG, CBC, ADIFF, PBNP #### [address] [address] Neutrophils/100 WBC (Bld) 60.4 % Normal 50.0-75.[address] [facility] Comment on above: Performed By: #### A KAMRON, TROPHS, GFR, BMP, MDW, MG, CBC, ADIFF, PBNP #### [address] [address] .GFRon 09-25-2024 Estimated Glomerular Filtration Rate 86 ml/min/1.73sqm Normal [facility] Comment on above: Result Comment: Stages [...] results. Performed By: #### T SH #### [address] [address] .MDWon 09-25-2024 Monocyte Distribution Width 21.03 High 0.00-20.[address] [facility] Comment on above: Result Comment: For adults in ED, MDW>20.0 may be associated with a higher risk of sepsis during the first 12hrs of hospital admission Performed By: #### A KAMRON, TROPHS, GFR, BMP, MDW, MG, CBC, ADIFF, PBNP #### [address] [address] .NEUABSon 09-25-2024 Neutrophil, Absolute 5.1 10 3/mcL Normal 2.3-8.1 [facility] Comment on above: Performed By: #### A KAMRON, TROPHS, GFR, BMP, MDW, MG, CBC, ADIFF, PBNP #### [address] [address] BMPon 09-25-2024 BUN/Creatinine Ratio 26 ratio Normal 7-27 [facility] Comment on above: Performed By: #### A KAMRON, TROPHS, GFR, BMP, MDW, MG, CBC, ADIFF, PBNP #### [address] [address] Calcium [Mass/Vol] 10.2 mg/dL Normal 8.4-10.2 [facility] Comment on above: Performed By: #### A KAMRON, TROPHS, GFR, BMP, MDW, MG, CBC, ADIFF, PBNP #### [address] [address] Chloride [Moles/Vol] 102 mmol/L Normal 98-107 [facility] Comment on above: Performed By: #### A KAMRON, TROPHS, GFR, BMP, MDW, MG, CBC, ADIFF, PBNP #### [address] [address] CO2 [Moles/Vol] 25 mmol/L Normal 23-[address] [facility] Comment on above: Performed By: #### A KAMRON, TROPHS, GFR, BMP, MDW, MG, CBC, ADIFF, PBNP #### [address] [address] Creatinine [Mass/Vol] 0.77 mg/dL Normal 0.51-0.[address] [facility] Comment on above: Performed By: #### A KAMRON, TROPHS, GFR, BMP, MDW, MG, CBC, ADIFF, PBNP #### [address] [address] Electrolyte Balance 11.0 mEq/L Normal 4.0-15.0 [facility] Comment on above: Performed By: #### A KAMRON, TROPHS, GFR, BMP, MDW, MG, CBC, ADIFF, PBNP #### [address] [address] Glucose [Mass/Vol] 128 mg/dL High 80-115 [facility] Comment on above: Performed By: #### A KAMRON, TROPHS, GFR, BMP, MDW, MG, CBC, ADIFF, PBNP #### [address] [address] Potassium [Moles/Vol] 3.6 mmol/L Normal 3.5-5.[address] [facility] Comment on above: Performed By: #### A KAMRON, TROPHS, GFR, BMP, MDW, MG, CBC, ADIFF, PBNP #### [address] [address] Sodium [Moles/Vol] 138 mmol/L Normal 136-145 [facility] Comment on above: Performed By: #### A KAMRON, TROPHS, GFR, BMP, MDW, MG, CBC, ADIFF, PBNP #### [place] [id number] Urea nitrogen [Mass/Vol] 20 mg/dL High 7-[address] [facility] Comment on above: Performed By: #### A KAMRON, TROPHS, GFR, BMP, MDW, MG, CBC, ADIFF, PBNP #### [place] [address] CBCon 09-25-2024 Erythrocyte distribution width (RBC) [Ratio] 13.6 % Normal 11.5-15.[address] [facility] Comment on above: Performed By: #### A KAMRON, TROPHS, GFR, BMP, MDW, MG, CBC, ADIFF, PBNP #### [address] [address] Hematocrit (Bld) [Volume fraction] 44.7 % Normal 34.0-46.[address] [facility] Comment on above: Performed By: #### A KAMRON, TROPHS, GFR, BMP, MDW, MG, CBC, ADIFF, PBNP #### [address] [address] Hgb 14.8 G/dL Normal 12.0-16.[address] [facility] Comment on above: Performed By: #### A KAMRON, TROPHS, GFR, BMP, MDW, MG, CBC, ADIFF, PBNP #### [address] [address] MCH (RBC) [Entitic mass] 30.1 pg Normal 27.0-33.[address] [facility] Comment on above: Performed By: #### A KAMRON, TROPHS, GFR, BMP, MDW, MG, CBC, ADIFF, PBNP #### [address] [address] MCHC 33.0 G/dL Normal 32.0-36.[address] [facility] Comment on above: Performed By: #### A KAMRON, TROPHS, GFR, BMP, MDW, MG, CBC, ADIFF, PBNP #### [address] [address] MCV (RBC) [Entitic vol] 91.1 fL Normal 80.0-99.[address] [facility] Comment on above: Performed By: #### A KAMRON, TROPHS, GFR, BMP, MDW, MG, CBC, ADIFF, PBNP #### [address] [address] Platelet 267 10 3/mcL Normal 150-[address] [facility] Comment on above: Performed By: #### A KAMRON, TROPHS, GFR, BMP, MDW, MG, CBC, ADIFF, PBNP #### [address] [address] Platelet mean volume (Bld) [Entitic vol] 7.4 fL Normal 6.6-10.[address] [facility] Comment on above: Performed By: #### A KAMRON, TROPHS, GFR, BMP, MDW, MG, CBC, ADIFF, PBNP #### [address] [address] RBC 4.91 10 6/mcL Normal 4.10-5.[address] [facility] Comment on above: Performed By: #### A KAMRON, TROPHS, GFR, BMP, MDW, MG, CBC, ADIFF, PBNP #### [address] [address] WBC 8.4 10 3/mcL Normal 4.5-10.[address] [facility] Comment on above: Performed By: #### A KAMRON, TROPHS, GFR, BMP, MDW, MG, CBC, ADIFF, PBNP #### [address] [address] MGon 09-25-2024 Magnesium [Mass/Vol] 2.0 mg/dL Normal 1.8-2.4 [facility] Comment on above: Performed By: #### A KAMRON, TROPHS, GFR, BMP, MDW, MG, CBC, ADIFF, PBNP #### [address] [address] PBNPon 09-25-2024 Natriuretic peptide B (Bld) [Mass/Vol] 154 pg/mL High 0-[address] [facility] Comment on above: Result Comment: NT-p roBNP results of less than 300 pg/mL effectively rules out acute congestive heart failure with 99% negative predictive value. Performed By: #### T #### [address] 09-25-2024 High Sensitivity Troponin I 21 ng/L Normal 0-[address] [facility] Comment on above: Result Comment: High Sensitive Troponin I Reference Ranges: Female: 0-51 ng/L Male: 0-76 ng/L Testing performed on [employer] using a homogeneous sandwich chemiluminescent immunoassay based on [employer] technology. Performed By: #### T [facility] #### [place] [address] High Sensitivity Troponin I 9 ng/L Normal 0-[address] [facility] Comment on above: Result Comment: High Sensitive Troponin I Reference Ranges: Female: 0-51 ng/L Male: 0-76 ng/L Testing performed on [employer] using a homogeneous sandwich chemiluminescent immunoassay based on [employer] technology. Performed By: #### A KAMRON, TROPHS, GFR, BMP, MDW, MG, CBC, ADIFF, PBNP #### [address] [address] TSHon 09-25-2024 TSH Qn 2.04 m[IU]/L Normal 0.36-3.[address] [facility] Comment on above: Performed By: #### T #### [address] [address] XR CHEST 1 VIEWon 09-25-2024 XR CHEST [...] 4:05:09 PM Ordering Provider: MCKAYLA CARRERA Normal [facility] CBC + DIFFon 05-22-2024 Baso # 0.03 x10EE3/UL Normal 0.00 - 0.10 [facility] Comment on above: Performed By: #### 2 62297 #### [facility],[address] [place] [address] Basophils/100 WBC (Bld) 0.4 % Normal 0.0 - 2.0 [facility] Comment on above: Performed By: #### 2 77333 #### [facility],[address] [place] [address] CBC + DIFF Normal [facility] Comment on above: Result Comment: CBC- COMPLETE BLOOD COUNT Performed By: #### 2 10544 #### [facility],[address] [place] [address] EO # 0.13 x10EE3/UL Normal 0.00 - 0.50 [facility] Comment on above: Performed By: #### 2 91067 #### [facility],[address] [place] [address] Eosinophils/100 WBC (Bld) 2.0 % Normal 0.0 - 7.0 [facility] Comment on above: Performed By: #### 2 32187 #### [facility],[address] [place], [place] [address] Erythrocyte distribution width (RBC) [Ratio] 13.9 % Normal 12.0 - 15.6 [facility] Comment on above: Performed By: #### 2 53588 #### [facility],[address] [place] [address] Hematocrit (Bld) [Volume fraction] 43.8 % Normal 34.0 - 46.0 [facility] Comment on above: Performed By: #### 2 09354 #### [facility],[address] [place] [address] Hemoglobin (Bld) [Mass/Vol] 14.5 g/dL Normal 12.0 - 16.0 [facility] Comment on above: Performed By: #### 2 25352 #### [facility],[address] [place] [address] Lymph # 1.26 x10EE3/UL Normal 0.80 - 2.80 [facility] Comment on above: Performed By: #### 2 19617 #### [facility],[address] [place] [address] Lymphocytes/100 WBC (Bld) 19.6 % Low 20.0 - 45.0 [facility] Comment on above: Performed By: #### 2 21026 #### [facility],[address] [place] [address] MANUAL DIFF N/A Normal [facility] Comment on above: Performed By: #### 2 28761 #### [facility],[address] [place] [address] MCH (RBC) [Entitic mass] 31 pg Normal 27 - 33 [facility] Comment on above: Performed By: #### 2 54143 #### [facility],[address] [place] [address] MCHC 33 X10 3 Normal 32 - 36 [facility] Comment on above: Performed By: #### 2 57470 #### [facility],[address] [place] [address] MCV (RBC) [Entitic vol] 93 fL Normal 80 - 99 [facility] Comment on above: Performed By: #### 2 84548 #### [facility],[address] [place] [address] [place] # 0.53 x10EE3/UL Normal 0.20 - 1.00 [facility] Comment on above: Performed By: #### 2 07646 #### [facility],[address] [place] [address] MONOS % 8.2 % Normal 0.0 - 10.0 [facility] Comment on above: Performed By: #### 2 27200 #### [facility],[address] [place] [address] Morphology Kelvin (Bld) [Interp] N/A Normal [facility] Comment on above: Performed By: #### 2 59282 #### [facility],[address] [place] [address] Neut # 4.49 x10EE3/UL Normal 1.50 - 7.10 [facility] Comment on above: Performed By: #### 2 70989 #### [facility],[address] [place] [address] Neutrophils/100 WBC (Bld) 69.9 % Normal 46.0 - 76.0 [facility] Comment on above: Performed By: #### 2 48665 #### [facility],[address] [place] [address] PLATELET 244 x10EE3/UL Normal 150 - 450 [facility] Comment on above: Performed By: #### 2 52311 #### [facility],[address] [place] [address] Platelet mean volume (Bld) [Entitic vol] 7.3 fL Normal 6.6 - 10.5 [facility] Comment on above: Result Comment: AUTO MATED DIFFERENTIAL Performed By: #### 2 77501 #### [facility],[address] [place] [address] RBC 4.72 x 10EE6/UL Normal 4.10 - 5.30 [facility] Comment on above: Performed By: #### 2 21358 #### [facility],[address] [place] [address] WBC 6.4 x 10EE3/UL Normal 4.5 - 10.[address] [facility] Comment on above: Performed By: #### 2 97859 #### [facility],[address] [place] [address] CMP with eGFRon 05-22-2024 AGE 63 years Normal [facility] Comment on above: Performed By: #### 2 59538 #### [facility],[address] [place] [address] Albumin [Mass/Vol] 4.1 g/dL Normal 3.4 - 5.0 [facility] Comment on above: Performed By: #### 2 82757 #### [facility],[address] [place] [address] Albumin/Globulin [Mass ratio] 1.2 {ratio} Normal 0.9 - 1.6 [facility] Comment on above: Performed By: #### 2 92323 #### [facility],[address] [place] [address] ALK PHOS 102 U/L Normal 46 - 116 [facility] Comment on above: Performed By: #### 2 39529 #### [facility],[address] [place] [address] ALT [Catalytic activity/Vol] 32 U/L Normal 16 - 63 [facility] Comment on above: Performed By: #### 2 94972 #### [facility],[address] [place] [address] Anion gap [Moles/Vol] 14 mmol/L Normal 10 - 20 [facility] Comment on above: Performed By: #### 2 73213 #### [facility],[address] [place] [address] AST [Catalytic activity/Vol] 21 U/L Normal 13 - 39 [facility] Comment on above: Performed By: #### 2 44140 #### [facility],[address] [place] [address] B/C RATIO 29 ratio Normal 0 - 30 [facility] Comment on above: Performed By: #### 2 98790 #### [facility],[address] [place] [address] Bilirubin [Mass/Vol] 0.6 mg/dL Normal 0.2 - 1.0 [facility] Comment on above: Performed By: #### 2 16990 #### [facility],[address] [place] [address] Calcium [Mass/Vol] 9.9 mg/dL Normal 8.5 - 10.1 [facility] Comment on above: Performed By: #### 2 12800 #### [facility],[address] [place] [address] Chloride [Moles/Vol] 106 mmol/L Normal 98 - 107 [facility] Comment on above: Performed By: #### 2 70683 #### [facility],[address] [place] [address] CMP with eGFR Normal [facility] Comment on above: Result Comment: COMP REHENSIVE METABOLIC PANEL Performed By: #### 2 01292 #### [facility],[address] [place] [address] CO2 [Moles/Vol] 27.8 mmol/L Normal 21.0 - 32.0 [facility] Comment on above: Performed By: #### 2 12010 #### [facility],[address] [place] [address] Creatinine [Mass/Vol] 0.65 mg/dL Normal 0.55 - 1.02 [facility] Comment on above: Performed By: #### 2 96471 #### [facility],[address] [place] [address] GFR/1.73 sq M.predicted among non-blacks MDRD (S/P/Bld) [Vol rate/Area] mL/min/{1.73_m2} Normal 60 - 999 [facility] Comment on above: Performed By: #### 2 32753 #### [facility],[address] [place] [address] Result Comment: ACCO RDING TO THE NATIONAL KIDNEY DISEASE EDUCATION PROGRAM(NKDE), A NORMAL eGFR IS A VALUE GREATER THAN OR EQUAL TO 60 ML/MIN/1.73 SQ METERS. CHRONIC KIDNEY DISEASE: <60mL/MIN/1.73 SQ METERS KIDNEY FAILURE: <15mL/MIN/1.73 SQ METERS THIS TEST SHOULD ONLY BE USED FOR PATIENTS 18 YEARS OF AGE AND OLDER. Globulin (S) [Mass/Vol] 3.3 g/dL Normal 1.5 - 3.8 [facility] Comment on above: Performed By: #### 2 41050 #### [facility],[address] [place] [address] Glucose [Mass/Vol] 95 mg/dL Normal 74 - 106 [facility] Comment on above: Performed By: #### 2 01568 #### [facility],[address] [place], [place] [address] Potassium [Moles/Vol] 3.6 mmol/L Normal 3.5 - 5.1 [facility] Comment on above: Performed By: #### 2 89099 #### [facility],[address] [place], [place] [address] Protein [Mass/Vol] 7.4 g/dL Normal 6.4 - 8.2 [facility] Comment on above: Performed By: #### 2 08414 #### [address] [address] Sodium [Moles/Vol] 144 mmol/L Normal 136 - 145 [facility] Comment on above: Performed By: #### 2 73081 #### [facility],[address],[place] [address] Urea nitrogen [Mass/Vol] 19 mg/dL High 7 - 18 [facility] Comment on above: Performed By: #### 2 03130 #### [facility],[address] [place] [address] LIPID PROFILEon 05-22-2024 Cholesterol [Mass/Vol] 290 mg/dL High 0 - 240 [facility] Comment on above: Performed By: #### 2 77942 #### [facility],[address] [place] [address] Cholesterol in HDL [Mass/Vol] 130 mg/dL High 40 - 60 [facility] Comment on above: Performed By: #### 2 24496 #### [facility],[address] [place] [address] Cholesterol in LDL [Mass/Vol] 151 mg/dL High 0 - 129 [facility] Comment on above: Performed By: #### 2 02651 #### [facility],[address] [place] [address] Cholesterol.total/Ch olesterol in HDL [Mass ratio] 2.2 {ratio} Normal 0.0 - 5.0 [facility] Comment on above: Performed By: #### 2 50171 #### [facility],[address] [place] [address] Lipid 1996 panel Normal [facility] Comment on above: Result Comment: LIPI D PROFILE Performed By: #### 2 34119 #### [facility],[address] [place] [address]50 Triglyceride [Mass/Vol] 44 mg/dL Normal 0 - 150 [facility] Comment on above: Performed By: #### 2 14262 #### [facility],[address] [place] [address] T4-FREE (FREE THYROXINE)on 0 05-22-2024 Free T4 [Mass/Vol] 1.03 ng/dL Normal 0.76 - 1.46 [facility] Comment on above: Result Comment: P otential of falsely elevated results when biotin concentrations are > 10 ng/mL. Performed By: #### 2 48455 #### [facility],[address] [place] [address] TSHon 05-22-2024 TSH Qn 6.04 m[IU]/L High 0.35 - 3.74 [facility] Comment on above: Performed By: #### 2 78896 #### [facility],[address] [place] [address] HPVon 05-14-2022 HPV Interp Normal See Interp HPVN [facility] Comment on above: Order Comment: Order placed by AP_HPV_ORDER rule from [id number] Result Comment: High Risk HPV Typing: NEGATIVE [...] HPVN Performed By: #### H PV #### [place] [address] HPV Source Cervix Normal [facility] Comment on above: Order Comment: Order placed by AP_HPV_ORDER rule from [id number] Performed By: #### H PV #### [place] [address] CNCOon 12-02-2016 [facility] HNO ID: [id number]: Mammography CoordinatorService: (none)Author Type: PhysicianType: LetterFiled: 12/03/2016 11:32 PMNote Text:December 02, 2016 PID: [id number] A. [address], [place] [address]Msdd Ms. Stephens,We are pleased to inform you that the results of your recent breastimaging exam on 12/02/2016 are normal. Early detection of cancer is veryimportant. We also understand recommendations regarding breast cancerscreening are controversial. Please discuss with your primary careprovider which strategy is best for you and whether a mammogram is rightfor you.Your imaging studies and report [facility] and are available for yourcontinuing care.Thank you for allowing us to help in meeting your health care needs.Sincerely,Dr. AshfordInterpreting RadiologistWCommunity Hospital of [facility] (Normal over 40) Normal [facility] DIG SCREEN CAD BILon Bilirubin (direct) * * *Final Report* * *DATE OF EXAM: Dec 02 2016 1:16PM [facility] 6361 - [facility] DIG SCREEN CAD ELIZABETH / REASON: routine * * * * Physician Interpretation * * * *RESULT: #[id number] - [facility] DIG SCREEN CAD BILBILATERAL DIGITAL SCREENING MAMMOGRAM WITH CAD: 12/02/2016HISTORY: /Screening Mammogram - patient reports NO breast symptoms /Priors available for comparison.RESULT:TECHN IQUE: The study was acquired using full field digital technology and interpreted from soft copy.Current study was also evaluated with a Computer Aided Detection (CAD).Comparison is made to exams dated: 12/16/2014 mammogram, 12/10/2012 mammogram, and 09/19/2011 mammogram - [facility].There are scattered fibroglandular elements in both breasts.No significant masses, calcifications, or other findings are seen in either breast.There has been no significant interval change.IMPRESSION: NEGATIVEThere is no mammographic evidence of malignancy.A 1 year screening mammogram is recommended. The exam was reviewed by a staff physician.Lalo Rios,bb/penrad:12/03/19 17 14:38:25Imaging Technologist: Britta SHEA(Rissa)(Chas), [facility] Centerletter sent: Normal over 40Mammogram BI-RADS: 1 NegativeTranscriptionis t: PenradTranscribe Date/Time: Dec 02 2016 1:02PDictated by: KRIS PARISI MDThis examination was interpreted and the report reviewed and electronically signed by: LALO ASHFORD MD on Dec 02 2016 2:38PM EST Normal [facility] PROGRESSon 12-02-2016 PROGRESS HNO ID: [id number]: Britta Caal RtService: (none)Author Type: (none)Type: Progress NotesFiled: 12/02/2016 1:34 PMNote Text: Radiology Service Progress NotePATIENT NAME: Allyn StephensMRN: [id number] OF SERVICE: December 02, 2016TIME: 1:34 PMPATIENT IDENTITY VERIFICATION COMPLETED USING TWO (2) METHODS: Patientconfirmed name verbally and Date of .PATIENT GENDER DATA: Female. status: : NoBreastfeeding status: NO.PATIENT RELEVANT IMPLANT DATA REVIEWED: Not ApplicableRADIOLOGY DEPARTMENT: Women's Health screeningPERIPHERAL IV DATA: Not applicableSIGNED BY: Britta Caal RtAugust 2016 1:34 PM Normal [facility] Vital Signs Date Time Vital Sign Value Performing Clinician Facility 12-14-2024 14:58-0400 Body height 172.7 cm Isabell Ahmet DO Work Phone: [facility] 12-14-2024 14:58-0400 Body mass index (BMI) [Ratio] 29.8 kg/m2 Isabell Ahmet DO Work Phone: [facility] 12-14-2024 14:58-0400 Body temperature 98.01 [degF] Isabell Leo DO Work Phone: [facility] 12-14-2024 14:58-0400 Body weight 88.91 kg Isabell Leo DO Work Phone: [facility] 12-14-2024 14:58-0400 Diastolic blood pressure 80 mm[Hg] Isabell Leo DO Work Phone: [facility] 12-14-2024 14:58-0400 Heart rate 86 /min Isabell Borisuk DO Work Phone: [facility] 12-14-2024 14:58-0400 Respiratory rate 16 /min Isabell Borisuk DO Work Phone: [facility] 12-14-2024 14:58-0400 Systolic blood pressure 128 mm[Hg] Isabell Borisuk DO Work Phone: [facility] 10-27-2024 15:33-0400 Body height 172.[address] Kana Hernandez MD Work Phone: [facility] 10-27-2024 15:33-0400 Body mass index (BMI) [Ratio] 30.2 kg/m2 Dr. Kana Hernandez MD Work Phone: [facility] 10-27-2024 15:33-0400 Body weight 90.[address] Kana Hernandez MD Work Phone: [facility] 10-27-2024 15:33-0400 Diastolic blood pressure 72 mm[Hg] Dr. Kana Hernandez MD Work Phone: [facility] 10-27-2024 15:33-0400 Heart rate 81 /min Dr. Kana Hernandez MD Work Phone: [facility] 10-27-2024 15:33-0400 Respiratory rate 16 /min Dr. Kana Hernandez MD Work Phone: [facility] 10-27-2024 15:33-0400 Systolic blood pressure 130 mm[Hg] Dr. Kana Hernandez MD Work Phone: [facility] 10-21-2024 15:28-0400 Body height 172.7 cm Isabell Borisuk DO Work Phone: [facility] 10-21-2024 15:28-0400 Body mass index (BMI) [Ratio] 30.32 kg/m2 Isabell Borisuk DO Work Phone: [facility] 10-21-2024 15:28-0400 Body temperature 97.81 [degF] Isabell Ahmet DO Work Phone: [facility] 10-21-2024 15:28-0400 Body weight 90.45 kg Isabell Mirthaisuk DO Work Phone: [facility] 10-21-2024 15:28-0400 Diastolic blood pressure 86 mm[Hg] Isabell Mirthaisuk DO Work Phone: [facility] 10-21-2024 15:28-0400 Heart rate 82 /min Isabell Ahmet DO Work Phone: [facility] 10-21-2024 15:28-0400 Respiratory rate 17 /min Isabell Mirthaisuk DO Work Phone: [facility] 10-21-2024 15:28-0400 SaO2% (BldA) [Mass fraction] 98 % Isabell Ahmet DO Work Phone: [facility] 10-21-2024 15:28-0400 Systolic blood pressure 130 mm[Hg] Isabell Ahmet DO Work Phone: [facility] Encounters Encounter Date Encounter Type Care Provider Facility Start: 01-28-2025 ambulatory Max Tavarez lity:[facility] Start: 12-14-2024 End: 12-14-2024 Office outpatient visit 25 minutes Isabell Leo DO Work Phone: [facility] Comment on above: Acquired hypothyroid ism (Primary Dx); Apneic episode; Primary hypertension; Paroxysmal atrial fibrillation (Multi); Snoring; Anxiety; Overweight (BMI 25.0-29.9) Start: 12-14-2024 End: 12-14-2024 [facility] Start: 11-26-2024 End: 11-26-[address] Kana Hernandez MD Work Phone: -Cat Scan [facility] Start: 11-26-2024 End: 11-26-[address] Jet Melchor MD -Cat Scan [facility] Work Phone: Start: 11-26-2024 End: 11-26-2024 ambulatory Jet Melchor Facility:[facility] Start: 11-12-2024 End: 11-12-[address] Kana Hernandez MD Work Phone: -Sleep Lab Start: 11-12-2024 End: 11-12-[address] Kana Hernandez MD Work Phone: -Sleep Lab Work Phone: Start: 11-12-2024 End: 11-12-2024 ambulatory Max Lissettejoan Facility:[facility] Start: 11-06-2024 End: 11-06-[address] Kana Hernandez MD Work Phone: -Cardiovascular Services Start: 11-06-2024 End: 11-06-[address] Jet Melchor MD -Cardiovascular Services Work Phone: Start: 11-05-2024 End: 11-06-2024 ambulatory Jet Melchor Facility:[facility] Start: 11-05-2024 Non-patient / Non-visit Dr. Francisco TELLO -[facility] Start: 10-27-2024 End: 10-27-[address] Jet Melchor MD -[facility] Work Phone: Start: 10-27-2024 End: 10-27-[address] Kana Hernandez MD Work Phone: -[facility] Start: 10-27-2024 End: 10-27-2024 ambulatory Jet Melchor Facility:[facility] Start: 10-21-2024 End: 10-21-2024 Office outpatient new 45 minutes Isabell Leo DO Work Phone: [facility] Comment on above: Paroxysmal atrial fi brillation (Multi) (Primary Dx); Acquired hypothyroidism; Primary hypertension; Snoring; Class 1 obesity due to excess calories without serious comorbidity with body mass index (BMI) of 30.0 to 30.9 in adult; Anxiety Start: 10-21-2024 End: 10-21-2024 ambulatory ISABELL LEO [facility] Start: 09-25-2024 End: 09-25-2024 Emergency department patient visit NONE PHYSICIAN Facility:[facility] Start: 05-22-2024 End: 05-22-2024 ambulatory [facility] Start: 12-02-2016 End: 12-02-2016 Ambulatory [facility] Procedures Date Procedure Procedure Detail Performing Clinician Start: 11-26-2024 CT of thorax with contrast Dr. Kana Hernandez MD Work Phone: Start: 11-10-2024 Thyrotropin [Units/v olume] in Serum or Plasma Isabell Leo DO Work Phone: Plan of Treatment Date Care Activity Detail Author Start: 2035 RSV High Risk: (Elde rly (60+) or Population) (1 - 1-dose 75+ series) RSV High Risk: (Elderly (60+) or Population) (1 - 1-dose 75+ series) [facility] Start: 11-10-2025 Thyroid stimulating hormone measurement TSH Level [facility] Start: 06-10-2025 End: 06-10-2025 Patient encounter procedure 06/10/2025 2:00 PM EST Office Visit [facility] [address] [place] [id number] [place] [address] [place], [place] [id number] [facility] Start: 06-03-2025 End: 06-03-2025 Patient encounter procedure 06/03/2025 2:40 PM EST Office Visit [facility] [address] [place] [address] [place] [address] [place] [address] [facility] Start: 05-31-2025 End: 05-31-2025 ambulatory 05/31/2025 3:00 PM [facility] [address] [place] [address] [place] [phone] Vikki Millan MD PhD [address] [place] [address] [place], [place] [id number] [facility] Start: 02-14-2025 End: 12-14-2025 TSH with reflex to Free T4 if abnormal TSH with reflex to Free T4 if abnormal Lab Routine Acquired hypothyroidism Expected: 02/14/2025 (Approximate), Expires: 12/14/2025 [facility] Work Phone: Comment on above: Expected: 02/14/2025 (Approximate), Expires: 12/14/2025 Start: 12-27-2024 Influenza vaccination [facility] Start: 12-14-2024 End: 12-14-2025 In-Center Sleep Study (Non-Sleep Provider) In-Center Sleep Study (Non-Sleep Provider) Sleep Center Routine Apneic episode Expected: 12/14/2024 (Approximate), Expires: 12/14/2025 [facility] Work Phone: Comment on above: Expected: 12/14/2024 (Approximate), Expires: 12/14/2025 Start: 11-25-2024 End: 12-21-2024 Drug Screen 9 Panel, Blood with Reflex to Confirmation Drug Screen 9 Panel, Blood with Reflex to Confirmation Lab Routine Anxiety Expected: 11/25/2024 (Approximate), Expires: 12/21/2024 [facility] Work Phone: Comment on above: Expected: 11/25/2024 (Approximate), Expires: 12/21/2024 Start: 11-25-2024 End: 10-21-2025 TSH with reflex to Free T4 if abnormal TSH with reflex to Free T4 if abnormal Lab Routine Acquired hypothyroidism Expected: 11/25/2024 (Approximate), Expires: 10/21/2025 [facility] Work Phone: Comment on above: Expected: 11/25/2024 (Approximate), Expires: 10/21/2025 Start: 10-27-2024 Evaluation of diagnostic study results [facility] Start: 10-21-2024 End: 10-21-2025 In-Center Sleep Study In-Center Sleep Study Sleep Center Routine Snoring Expected: 10/21/2024 (Approximate), Expires: 10/21/2025 [facility] Service Area Work Phone: Comment on above: Expected: 10/21/2024 (Approximate), Expires: 10/21/2025 Start: 12-28-2023 COVID-19 Vaccine ( season) COVID-19 Vaccine ( season) [facility] Start: 2010 Pneumococcal vaccination Pneumococcal Vaccine (1 of 1 - PCV) [facility] Start: 2010 Zoster Vaccines (1 o f 2) Zoster Vaccines (1 of 2) [facility] Start: 2000 Screening for malign ant neoplasm of breast Mammogram [facility] Start: 1982 DTaP/Tdap/Td Vaccine s (1 - Tdap) DTaP/Tdap/Td Vaccines (1 - Tdap) [facility] Start: 1981 Screening for malign ant neoplasm of cervix [facility] Start: 1978 Diabetes mellitus screening Diabetes Screening [facility] Start: 1978 Hepatitis C screening Hepatitis C Sc reening [facility] Start: 1961 MMR Vaccines (1 of 1 - Standard series) MMR Vaccines (1 of 1 - Standard series) [facility] Start: 1960 HIV screening [facility] Start: 1960 Lipid panel Lipid Panel [facility] Start: 1960 Screening for malign ant neoplasm of colon [facility] Start: 1960 Thyroid stimulating hormone measurement TSH Level [facility] Start: 1960 Yearly Adult Physical Yearly Adult P [facility] Payers Date Payer Category Payer Self-pay 2024 [employer] Managed Care [facility] [id number] 2024 Unknown [id number] 1960 Unknown [id number] [id number] 1960 Unknown [id number] [id number] 1960 Unknown [id number] [id number] 1960 Unknown [id number] [id number] Unknown [id number] [id number] Unknown [id number]. [id number] Unknown [id number] [id number] Unknown [id number]. [id number] Unknown [id number] [id number] Unknown [id number] [id number] Unknown [id number] [id number] Social History Date Type Detail Facility Start: 10-21-2024 End: 12-14-2024 Tobacco smoking status NHIS Ex-smoker [facility] Start: 04-28-1979 End: 04-28-1987 History of tobacco use Current smoker [facility] Work Phone: Start: 04-28-1979 End: 04-28-1987 History of tobacco use Cigarette Smoker [facility] Work Phone: Start: 10-21-2024 End: 12-14-2024 Cigarettes smoked current (pack per day) - Reported 0.3 [facility] Work Phone: Start: 10-21-2024 End: 12-14-2024 Tobacco use and exposure Smokeless tobacco non-user [facility] Work Phone: Start: 10-21-2024 End: 12-14-2024 Alcoholic beverage intake Ex-drinker (finding) [facility] Work Phone: Start: 10-21-2024 End: 12-14-2024 Tobacco use panel [facility] Work Phone: Start: 10-21-2024 Alcohol Comment very rare occasion [facility] Work Phone: Start: 1960 Sex assigned at Not on file [facility] Work Phone: Start: 01-02-2021 Tobacco smoking stat us NDIS Never smoked tobacco (finding) [facility] Start: 03-25-2019 Lives Lives [facility] Start: 1960 Sex Assigned At Female [facility] Start: 09-06-2024 Sex Female [facility] Goals Date Patient Goal Desired Activity /State Functional Status Date Assessment Result Facility 12-14-2024 Patient Health Quest ionnaire 2 item (PHQ-2) [Reported] [facility] Work Phone: 10-21-2024 Patient Health Quest ionnaire 2 item (PHQ-2) [Reported] [facility] Work Phone: Clinical Notes 10-21-2024 to 12-20-2024 Assessment & Plan Note - Isabell Leo DO - 12/20/2024 10:00 PM EDTAssessment & Plan Note - Isabell Leo DO - 12/20/2024 10:00 PM EDTPatient Instructions Note Date & Type Note Facility 12-20-2024 Evaluation + Plan note Associated Problem(s): Paroxysmal atrial fibrillation (Multi) Home sleep study did not show sleep apnea but she is interested in doing an in-lab study so this was ordered [facility] Work Phone: 12-20-2024 Miscellaneous Notes Associated Problem(s): Paroxysmal atrial fibrillation (Multi) Home sleep study did not show sleep apnea but she is interested in doing an in-lab study so this was ordered documented in this encounter [facility] Work Phone: 12-14-2024 History of Presen t illness Narrative Subjective Allyn Stephens is a 64 y.o. female Patient presents to review recent sleep study. She did a home sleep study which did not show clinical sleep apnea. However due to high clinical suspicion, patient is interested in doing an in-lab sleep study instead now. She has appointments coming up to see a functional/integrative medicine provider. She is going to a dentist for a cracked tooth and needs a crown. They will do a temporary and then a permanent crown. She saw the sociology teacher and they believe that her A-fib was caused by increased stress and from her thyroid abnormalities. Her echo showed LVEF normal, 60%. Stage I diastolic dysfunction. Ascending aorta was mild to moderately dilated. Trisinus/trileaflet aortic valve. CT of the heart showed mild dilation of the ascending aorta at 4.4 cm. She was told there to 20 to monitor it over time for now. She was told to continue metoprolol tartrate 12.5 mg twice daily and lisinopril 10 mg daily She does not do mammograms currently. She has had them in the past. She does breast thermography instead. She states that her anxiety is intermittent. She is currently taking Ashwaghanda and L-theanine. She also has Ativan 1 mg tablets at home and she generally will cut these in half and take 0.5 mg if she really needs it. Recently she is been taking the Ativan nearly every day because the anxiety has been worsened. Years ago she was on Paxil and it was difficult to come off of it. She has been thinking about possibly trying Paxil again but she does not really want to be on an every day prescription medicine for anxiety if she does not have to be. Objective BP 128/80 Pulse 86 Temp 36.7 C (98 F) Resp 16 Ht 1.727 m (5' 8") Wt 88.9 kg (196 lb) BMI 29.80 kg/m PHYSICAL EXAM Gen: Well appearing, in [...] Psych: Appropriate mood and affect Assessment/Plan Follow-up for annual physical 05/2025 Problem List Items Addressed This Visit Primary hypertension Overview Well-controlled on lisinopril 10 mg daily and metoprolol tartrate 12.5 mg twice daily Relevant Medications lisinopril 10 mg tablet Acquired hypothyroidism - Primary Overview Patient is requesting levothyroxine be decreased from 100 to 88 mcg daily since she feels better on that dose. Will recheck thyroid blood work at about 8 weeks. She is also going to be seeing a functional/integrative medicine provider to discuss her thyroid Relevant Medications levothyroxine (Synthroid, Levoxyl) 88 mcg tablet Other Relevant Orders TSH with reflex to Free T4 if abnormal Paroxysmal atrial fibrillation (Multi) Overview Follows with sociology teacher. On metoprolol tartrate 12.5 mg twice daily Current Assessment & Plan Home sleep study did not show sleep apnea but she is interested in doing an in-lab study so this was ordered Overweight (BMI 25.0-29.9) Overview Counseled on healthy diet and regular exercise. Has done a nutrition program in the past. Has lost about 60 pounds from her highest weight of 253 pounds Anxiety Overview She takes Ashwaghanda and L-theanine daily. Also recommend starting HEIDI-e daily for anxiety and probiotic daily for gut health and mental health. Status post failed Paxil in the past. Takes Ativan 0.5-1 mg as needed. [place]ARRS was reviewed and is appropriate. Annual controlled substance agreement was updated in the office 10/21/24. Annual blood drug screen up-to-date from 11/10/2024. Snoring Other Visit Diagnoses Apneic episode Relevant Orders In-Center Sleep Study (Non-Sleep Provider) Isabell Leo D.O. Family Medicine Physician [facility] [address] [place], [place] [id number] This note has been transcribed using [employer] voice recognition system and there is a possibility of unintentional typing misprints. documented in this encounter [facility] Work Phone: 12-14-2024 Instructions Isabell Leo DO - 12/14/2024 3:00 PM EDT Decrease levothyroxine from 100 to 88mcg daily Repeating tsh with reflexc to free t4 in 8 weeks In lab sleep study Take 1-2 ativan before hand Try HEIDI-e, probiotic Let me know if you want to try paxil again Research doing a mammogram every 2 years in addition to the breast thermography every year Lisinopril refilled Treatment for anxiety & depression without prescription medication: - Speak with a talk therapist/counselor to work through your emotions and come up with healthy coping mechanisms. Alternatively you could try journaling to help work through your worries and your gratitude. Reach out to loved ones for social support. - Supplements: magnesium glycinate (200-400 mg/day) - best for sleep, ashwagandha (300-600 mg/day), L-theanine (100-200 mg/day), omega-3 fatty acids (1,000-2,000 mg/day of EPA/DHA), 5-HTP (50-200 mg/day), HEIDI-e (200-1,200 mg/day), JOHN (100-500 mg/day), valerian root (300-600 mg/day), probiotics with lactobacillus or bifidobacterium, vitamin D (2,000-5,000 iu/day), vitamin B12 (1,000-2,000 mcg/day) - Exercise releases endorphins and lowers cortisol levels. Don t love to exercise? Try going for a walk and listen to music, podcasts, audiobooks, etc. - Prioritize 7-9 hours of sleep each night. Work on good sleep hygiene. Avoid screens directly before bed (blue light is overstimulating). Stop eating/drinking 1+ hour before bed. Read or take a hot bath before bed to wind down. - Practice mindfulness or try guided meditations (YouTube, Podcasts, Calm nitin, Headspace nitin) - Engage in grounding techniques to manage panic ( 5-4-3-2-1 method, box breathing, hold an ice cube, splash cold water on your face, suck on a warhead or other sour candy) - Yoga, which combines movement, breath, and meditation (in person classes, YouTube tutorials) - Stabilize your blood sugar to help regulate your mood by eating three meals a day and focusing on protein, healthy fats, and fiber instead of simple sugars which spike and crash the blood sugar - Limit caffeine, alcohol, and nicotine. All of these can exacerbate anxiety and depression symptoms. Opt for decaf coffee or herbal tea (chamomile, peppermint, valerian root, lemon balm, lavender) when possible. - Spend time outdoors - Get a massage or acupuncture - Use aromatherapy with essential oils in a diffuser (try lavender, chamomile, altagracia, bergamot, frankincense, patchouli, ylang ylang) - Consider taking a break from social media and/or news outlets, or set time limits for your devices - Need more help? See your doctor to discuss prescription medication options - In crisis? Call or text the National Suicide Prevention Lifeline at 988, call emergency services at 911, or present to the emergency department documented in this encounter [facility] Work Phone: 11-26-2024 Radiology Diagnostic study note [facility] Services [address] [place] [id number] Chest WITH Contrast MR#: [id number] Acct: [id number] Name: ALLYN STEPHENS SHERRI Rep #: [id number] : 1960 F [id number] From: Perez Moncada MD PCP: ISABELL LEO Status: REG CLI Study:Chest WITH Contrast Date of Exam: 11/26/24 Exam# [id number] Ordering Dr: Mook Melchor MD PROCEDURE: CHEST WITH CONTRAST 11/26/2024 REASON FOR EXAM: DILATED AORTIC ROOT TECHNIQUE: CHEST WITH CONTRAST Coronal and Sagittal reconstruction series were provided. CONTRAST: Isovue 3 7 VOLUME: 95 mL One or more dose reduction techniques were used (e.g., Automated exposure control, adjustment of the mA and/or kV according to patient size, use of iterative reconstruction technique). RADIATION DOSE SUMMARY: CTDlvol: 11.75 mGy DLP: 362.84 mGycm COMPARISON: None FINDINGS: Hardware: None Lymph nodes: Small benign-appearing bilateral axillary lymph nodes. Heart and Vasculature: There is dilatation of the root of the ascending thoracicaorta with a transverse dimension of 44.3 mm. No significant coronary artery calcification is seen. The heart is not enlarged. Lungs and Airways: The lungs are clear. Pleura: No pleural effusion. Upper Abdomen: Fatty infiltration of the liver. Bones: Degenerative changes of the thoracic spine. CT/Chest WITH Contrast IMPRESSION: Coronary artery calcification (CAC) is is absent Dilatation of the root of the ascending thoracic aorta with a transverse dimension of 44.3 mm. Reading Location: [id number] CC: Dr. Jet Melchor MD; ISABELL LEO ~ Heart Specialist: Signed [facility] 10-27-2024 Evaluation note Diagnosis Onset Date Resolution Afib acute October 27, 2024 3:31pm [facility] Work Phone: 1(622) 301-393506-26-2025 History of Present illness Narrative* Isabell Leo, - 10/21/2024 4:00 PM EDT Subjective Allyn Stephens is a 64 y.o. female Patient presents to [facility]. She was referred by Dr. Ehsan [...] still aches. Yesterday she went to the windows server support technician. She is going back to them again in October. She takes a "IAG" supplement for "lymphatic drainage". She bounces on a ball for lymphatic drainage. She follows with a fitness services manager. Her highest weight was 253 pounds. She [...] F) Resp 17 Ht 1.727 m (5' 8") Wt 90.4 kg (199 lb 6.4oz) SpO2 98% BMI 30.32 kg/m PHYSICAL EXAM [...] reflex to free T4 if abnormal 11/25/2024 (whichwill be about 8 weeks from her most recent TSH lab). She is interested in seeing a functional corrosion control engineer to have a full thyroid workup and discuss other possible natural treatments for the thyroid. I provided her with an integrative medicine referral through . Also gave her names of clinics I found for functional medicine closer to where she lives, including "[facility]" in [place], and "[facility]" in [place]. Relevant Orders Referral to [facility] TSH with reflex to Free T4 if abnormal Follow Up In Advanced Primary Care - PCP - Medicare Annual Paroxysmal atrial fibrillation (Multi) - Primary Overview She is going to see a sociology teacher who she has worked with previously and [...] Study Isabell Leo D.O. Family Medicine Physician [facility] [address] [place] [address] This note has been transcribed using Dragon voice recognition system and there is a [...] file prior to visit. documented in this [facility] Work Phone: 1(887) 527-284406-26-2025 Instructions* Patient Instructions* Isabell Leo DO - 10/21/2024 4:00 PM EDT in lab sleep study locations: [facility] - or other non- one closer to home TSH 11/25 at lab in [place] Integrative medicine referral through in the system [facility] [address] [place] [address] Email: [email or web address] Holistic medicine practitioner in [place], [place] Address: [address] [place], [place] [id number] [facility]: Evaluation note* Diagnosis Paroxysmal atrial fibrillation (Multi)- Primary Atrial fibrillation Acquired hypothyroidism Unspecified hypothyroidism Primary hypertension Unspecified essential hypertension Snoring Other dyspnea and respiratory abnormality Class 1 obesity due to excess calories without serious comorbidity with body mass index (BMI) of 30.0 to 30.9 in adult Anxiety Anxiety state, unspecified documented in this encounter [facility] Work Phone: Evaluation noteNo assessment information available [facility] Work Phone: Evaluation note* Diagnosis Acquired hypothyroidism- Primary Unspecified hypothyroidism Apneic episode Primary hypertension Unspecified essential hypertension Paroxysmal atrial fibrillation (Multi) Atrial fibrillation Snoring Other dyspnea and respiratory abnormality Anxiety Anxiety state, unspecified Overweight (BMI 25.0-29.9) Overweight documented in this encounter [facility] Work Phone: Reason for referral (narrative)No reason for referral [facility] Work Phone: Summary Purpose Family History No [...] for Visit Chief Complaint Admit Date RE-EST (INVESTIGATIVE SHOPPER) October 27, 2024 3:31p m Chief Complaint Admit Date RE-EST (INVESTIGATIVE SHOPPER) October 27, 2024 3:31p m INT LAB ORDERS October 27, 2024 4:26p m Reason for Visit Admit Date Afib October 27, 2024 3:31p m Chief Complaint Admit Date RE-EST (INVESTIGATIVE SHOPPER) October 27, 2024 3:31p m INT LAB ORDERS October 27, 2024 4:26p m atrial fib-flutter November 06, 2024 8:30 am SNORING November 12, 2024 10:1 1am Chief Complaint Admit Date RE-EST (INVESTIGATIVE SHOPPER) October 27, 2024 3:31p m INT LAB ORDERS October 27, 2024 4:26p m atrial fib-flutter November 06, 2024 8:30 am SNORING November 12, 2024 10:1 1am DILATED AORTIC ROOT November 26, 2024 6:0 9am Additional Source Comments INFORMATION SOURCE (unrecogn ized section and content) DATE CREATED AUTHOR 10/22/2017 [facility] DATE CREATED AUTHOR AUTHOR'S ORGANIZ ATION 05/15/2022 [facility] ([place]) DATE CREATED AUTHOR AUTHOR'S ORGANIZ ATION 05/23/[address] [facility] DATE CREATED AUTHOR AUTHOR'S ORGANIZ ATION 09/30/[address] [facility] DATE CREATED AUTHOR AUTHOR'S ORGANIZ ATION 11/14/2024 [facility] DATE CREATED AUTHOR AUTHOR'S ORGANIZ ATION 12/22/2024 [facility] DATE CREATED AUTHOR AUTHOR'S ORGANIZ ATION 01/27/2025 [facility] Reason for Visit (unrecogniz ed section and content) Reason Comments New Patient Visit Thyroid check Reason Comments Review Sleep Study Results Care Teams (unrecognized sec tion and content) Finance And Administration Manager Relationship Specialty [place] [address] [place] [address] PCP - General Family Medicine 09/06/24 Team Status: Active Member Role/Relationship Status Dates Out of [facility] Doctor Primary Care Provider Active Team Status: Inactive Member Role/Relationship Status Dates Dr. Kana Hernandez MD Referring Provider Active St art: October 27, 2024 End: October 27, 2024 Dr. Jet Melchor MD Attending Provider Active S tart: October 27, 2024 End: October 27, 2024 Out of [facility] Doctor Primary Care Provider Active Start: October 27, 2024 End: October 27, 2024 Team Status: Inactive Member Role/Relationship Status Dates Out of [facility] Doctor Primary Care Provider Active Start: October [...] November 06, 2024 End: November 06, 2024 AHMET WHYTE Primary Care Provider Active S tart: November 06, 2024 End: November 06, 2024 Team Status: Active Member Role/Relationship Status Dates ISABELLMIRTHAIS Primary Care Provider Active S tart: November 12, 2024 AHMET WHYTE Attending Provider Active Star t: November 12, 2024 ISABELLMIRTHAISUK Referring Provider Active Star t: November 12, 2024 Team Status: Inactive Member Role/Relationship Status Dates ISABELLMIRTHAIS Primary Care Provider Active S tart: November 12, 2024 End: November 12, 2024 ISABELLMIRTHAIS Attending Provider Active Star t: November 12, 2024 End: November 12, 2024 ISABELLMIRTHAISUK Referring Provider Active Star t: November 12, 2024 End: November 12, 2024 Team Status: Inactive Member Role/Relationship Status Dates ISABELLMIRTHAIS Primary Care Provider Active S tart: November 26, 2024 End: November 26, 2024 Dr. Jet Melchor MD Attending Provider Active S tart: November 26, 2024 End: November 26, 2024 Dr. Jet Melchor MD Referring Provider Active S tart: November 26, 2024 End: November 26, 2024 Finance And Administration Manager Relationship Specialty [place] [address] [place] [address] PCP - General Family Medicine 09/06/24 FOR RECORDS PERTAINING TO PATIENTS WHO ARE [...] BE BASED ON THE PRIMARY CLINICAL RECORDS. [email or web address] [email or web address]. provides no warranty or guarantee of the accuracy or completeness of information in this document.
== END | disposition home or self-care (01) ==
LOC: SL 19:35
DX: R06.81 Apnea, not elsewhere classified (principal)
CPT/HCPCS: 95810